=== PATIENT | female | born 1995 | race African-American/Black ===

== ENCOUNTER 2016-08-06 20:57 | Emergency (ER) | payer SELFPAY ==
--- NOTE | 2016-08-06 21:07 | ER Document Report ---
ED Medical Screen (RME) - General Stated Complaint: PELVIC PAIN Mode of Arrival: Ambulatory Information source: Patient Notes: Patient presents with complaints of lower abdominal pain some vaginal discharge denies pain with void. Denies fever vomiting diarrhea reports some nausea I have greeted and performed a rapid initial assessment of this patient. A comprehensive ED assessment and evaluation of the patient, analysis of test results and completion of the medical decision making process will be conducted by additional ED providers. TRAVEL OUTSIDE OF THE [place] IN LAST 30 DAYS: No - Related Data Allergies/Adverse Reactions: No Known Allergies Allergy (Unverified 05/11/15 11:35) Past Medical History Psychiatric Medical History: Reports: Hx Attention Deficit Hyperactivity Disorder, Hx Bipolar Disorder - Immunizations Hx Diphtheria, Pertussis, Tetanus Vaccination: No Physical Exam - Vital signs Vitals: Temp Pulse Resp BP Pulse Ox 97.9 F 74 20 116/73 99 08/06/16 21:03 08/06/16 21:03 08/06/16 21:03 08/06/16 21:03 08/06/16 21:03 Course - Vital Signs Vital signs: Temp Pulse Resp BP Pulse Ox 97.9 F 74 20 116/73 99 08/06/16 21:03 08/06/16 21:03 08/06/16 21:04 08/06/16 21:03 08/06/16 21:03
[2016-08-06 21:38] LABS: ABSOLUTE LYMPHOCYTES (AUTO) 2.9 10^3/uL (0.5-4.7); ABSOLUTE MONOCYTES (AUTO) 0.7 10^3/uL (0.1-1.4); ABSOLUTE NEUT (AUTO) 2.5 10^3/uL (1.7-8.2); BASOPHILS % (AUTO) 0.3 % (0-2); EOSINOPHILS % (AUTO) 0.7 % (0-6); HEMATOCRIT 39.1 % (36.0-47.0); HEMOGLOBIN 13.1 g/dL (12.0-15.5); HGB HCT DIFFERENCE 0.2; LYMPHOCYTES % (AUTO) 47.1 % (13-45); MEAN CORPUSCULAR HEMOGLOBIN 28.4 pg (27.0-33.4); MEAN CORPUSCULAR HGB CONC 33.5 g/dL (32.0-36.0); MEAN CORPUSCULAR VOLUME 85 fl (80-97); MONOCYTES % (AUTO) 10.8 % (3-13); RED CELL DISTRIBUTION WIDTH 13.6 % (11.5-14.0); SEGMENTED NEUTROPHILS % (AUTO) 41.1 % (42-78); WHITE BLOOD COUNT 6.1 10^3/uL (4.0-10.5)
[2016-08-06 21:47] LABS: ALANINE AMINOTRANSFERASE 29 U/L (9-52); ALBUMIN 4.7 g/dL (3.5-5.0); ALKALINE PHOSPHATASE 99 U/L (38-126); ANION GAP 16 (5-19); ASPARTATE AMINO TRANSFERASE 21 U/L (14-36); BILIRUBIN,TOTAL 0.4 mg/dL (0.2-1.3); BLOOD UREA NITROGEN 12 mg/dL (7-20); CALCIUM 10.4 mg/dL (8.4-10.2); CARBON DIOXIDE 21 mmol/L (22-30); CHLORIDE 106 mmol/L (98-107); CREATININE RESULT 0.76 mg/dL (0.52-1.25); GLUCOSE 83 mg/dL (75-110); POTASSIUM 4.3 mmol/L (3.6-5.0); SODIUM 142.6 mmol/L (137-145); TOTAL PROTEIN 7.9 g/dL (6.3-8.2)
[2016-08-06 22:14] LABS: APPEARANCE,URINE CLEAR; BILIRUBIN,URINE NEGATIVE (NEGATIVE); GLUCOSE, URINE NEGATIVE (NEGATIVE); KETONES,URINE NEGATIVE (NEGATIVE); LEUKOCYTE ESTERASE,URINE NEGATIVE (NEGATIVE); NITRITE,URINE NEGATIVE (NEGATIVE); PROTEIN,URINE NEGATIVE (NEGATIVE); URINE SPECIFIC GRAVITY 1.024; UROBILINOGEN,URINE NEGATIVE mg/dL (<2.0)
--- NOTE | 2016-08-06 23:51 | ER Document Report ---
ED GI/ - General Chief Complaint: Pelvic Pain Stated Complaint: PELVIC PAIN Time seen by provider: 23:49 Mode of Arrival: Ambulatory Information source: Patient TRAVEL OUTSIDE OF THE [place] IN LAST 30 DAYS: No - HPI Patient complains to provider of: Pelvic pain, Vaginal discharge Onset: This afternoon Timing/Duration: Sudden Quality of pain: Achy Severity at maximum: Moderate Severity in ED: Moderate Pain Level: 3 Location: Pelvis Vaginal bleeding (Compared to normal period): None Associated symptoms: Vaginal discharge Exacerbated by: Denies Relieved by: Denies Similar symptoms previously: Yes Recently seen / treated by doctor: No Notes: 08/06/16 23:49 Patient is a 21-year-old female who recently came to the area from [place] after a "bad breakup" with her boyfriend, states she is having pelvic pain with white vaginal discharge and is concerned about a sexually transmitted disease, she denies any nausea vomiting or diarrhea, no fever or chills, no dysuria or hematuria, her last intercourse was approximately one week ago, she reports a history of gonorrhea and Chlamydia in the past for which she has been treated - Related Data Allergies/Adverse Reactions: No Known Allergies Allergy (Verified 08/06/16 21:09) Past Medical History - General Information source: Patient - Social History Smoking Status: Never Smoker Chew tobacco use (# tins/day): No Frequency of alcohol use: None Drug Abuse: None Family History: Reviewed & Not Pertinent Patient has suicidal ideation: No Patient has homicidal ideation: No Renal/ Medical History: Denies: Hx Peritoneal Dialysis Psychiatric Medical History: Reports: Hx Attention Deficit Hyperactivity Disorder, Hx Bipolar Disorder - Immunizations Hx Diphtheria, Pertussis, Tetanus Vaccination: No Review of Systems - Review of Systems Constitutional: No symptoms reported EENT: No symptoms reported Cardiovascular: No symptoms reported Respiratory: No symptoms reported Gastrointestinal: No symptoms reported Genitourinary: No symptoms reported Female Genitourinary: See HPI Musculoskeletal: No symptoms reported Skin: No symptoms reported Hematologic/Lymphatic: No symptoms reported Neurological/Psychological: No symptoms reported -: Yes All other systems reviewed and negative Physical Exam - Vital signs Vitals: Temp Pulse Resp BP Pulse Ox 97.9 F 74 20 116/73 99 08/06/16 21:03 08/06/16 21:03 08/06/16 21:03 08/06/16 21:03 08/06/16 21:03 Interpretation: Normal - General General appearance: Appears well, Alert - HEENT Head: Normocephalic, Atraumatic Eyes: Normal Pupils: PERRL - Respiratory Respiratory status: No respiratory distress Chest status: Nontender Breath sounds: Normal Chest palpation: Normal - Cardiovascular Rhythm: Regular Heart sounds: Normal auscultation Murmur: No - Abdominal Inspection: Normal Distension: No distension Bowel sounds: Normal Tenderness: Tender - Suprapubic Organomegaly: No organomegaly - Genitourinary External exam: Normal Speculum exam: Cervix closed, Vaginal discharge Vaginal bleeding: None Bimanuel exam: Cervical motion tender. No: Adnexal tenderness - Back Back: Normal, Nontender - Extremities General upper extremity: Normal inspection, Nontender, Normal color, Normal ROM , Normal temperature General lower extremity: Normal inspection, Nontender, Normal color, Normal ROM , Normal temperature, Normal weight bearing. No: Humaira's sign - Neurological Neuro grossly intact: Yes Cognition: Normal Orientation: AAOx4 Dale Coma Scale Eye Opening: Spontaneous [place] Coma Scale Verbal: Oriented Dale Coma Scale Motor: Obeys Commands [place] Coma Scale Total: 15 Speech: Normal Motor strength normal: LUE, RUE, LLE, RLE Sensory: Normal - Psychological Associated symptoms: Normal affect, Normal mood - Skin Skin Temperature: Warm Skin Moisture: Dry Skin Color: Normal Course - Re-evaluation Re-evalutation: 08/07/16 04:47 Laboratory findings discussed with patient at bedside, physical exam findings are consistent with bacterial vaginosis, patient was started on Flagyl and provided with information for follow-up, advised to return if symptoms worsen, patient acknowledges understanding and agreement with this plan - Vital Signs Vital signs: Temp Pulse Resp BP Pulse Ox 98.5 F 107 H 20 119/68 98 08/07/16 02:04 08/07/16 02:04 08/07/16 02:04 08/07/16 02:04 08/07/16 02:04 - Laboratory Result Diagrams: 08/06/16 21:20 08/06/16 21:20 Laboratory results interpreted by me: 08/06/16 08/06/16 08/06/16 21:20 21:20 21:20 Seg Neutrophils % 41.1 L Lymphocytes % 47.1 H Carbon Dioxide 21 L Calcium 10.4 H Urine Ascorbic Acid 20 H Discharge - Discharge Clinical Impression: Bacterial vaginosis Condition: Stable Disposition: HOME, SELF-CARE Instructions: Vaginosis, Bacterial ([facility]), [facility] Additional Instructions: Follow up with your primary care provider in one to 2 days. Return to the emergency room immediately if symptoms worsen or any additional concerns. Prescriptions: Metronidazole [Flagyl 500 mg Tablet] 500 mg PO TID #30 tablet
[2016-08-07 01:33] LABS: CHLAM PCR NOT DETECTED (NOT DETECT)
[2016-08-07] MEDS ORDERED: METRONIDAZOLE 500 MG TABLET PO ONE (02:00)
[2016-08-07 02:10] VITALS: BP 119/68
== END 2016-08-07 02:11 | disposition home or self-care (01) ==
LOC: ER 20:57
DX: N76.0 Acute vaginitis (principal); B96.89 Other specified bacterial agents as the cause of diseases classified elsewhere; R10.2 Pelvic and perineal pain
CPT/HCPCS: 36415; 80053; 81001; 84703; 85025; 87210; 87491; 87591; 99284

== ENCOUNTER 2016-08-27 18:40 | Emergency (ER) | payer MEDICAID ==
--- NOTE | 2016-08-27 20:07 | ER Document Report ---
ED Medical Screen (RME) - General Stated Complaint: ABDOMINAL PAIN Notes: lmp: 08/20-08/23 test today abdominal cramping, nausea today, headache h/o endometriosis, ovarian cysts with tuboovarian abscess not on control I have greeted and performed a rapid initial assessment of this patient. A comprehensive ED assessment and evaluation of the patient, analysis of test results and completion of the medical decision making process will be conducted by additional ED providers. TRAVEL OUTSIDE OF THE [place] IN LAST 30 DAYS: No - Related Data Allergies/Adverse Reactions: No Known Allergies Allergy (Verified 08/06/16 21:09) Past Medical History Renal/ Medical History: Denies: Hx Peritoneal Dialysis Psychiatric Medical History: Reports: Hx Attention Deficit Hyperactivity Disorder, Hx Bipolar Disorder - Immunizations Hx Diphtheria, Pertussis, Tetanus Vaccination: No
[2016-08-27 20:09] VITALS: BP 106/64
[2016-08-27 20:36] LABS: APPEARANCE,URINE SLIGHTLY-CLOUDY; BILIRUBIN,URINE NEGATIVE (NEGATIVE); GLUCOSE, URINE NEGATIVE (NEGATIVE); KETONES,URINE 20 mg/dL (NEGATIVE); LEUKOCYTE ESTERASE,URINE NEGATIVE (NEGATIVE); NITRITE,URINE NEGATIVE (NEGATIVE); PROTEIN,URINE NEGATIVE (NEGATIVE); UROBILINOGEN,URINE NEGATIVE mg/dL (<2.0)
== END 2016-08-28 00:03 | disposition left against medical advice (07) ==
LOC: ER 18:40
DX: R10.9 Unspecified abdominal pain (principal); R11.0 Nausea; R51 Headache; Z87.42 Personal history of other diseases of the female genital tract; Z53.20 Procedure and treatment not carried out because of patient's decision for unspecified reasons
CPT/HCPCS: 81001; 87086; 87088; 99281

== ENCOUNTER 2016-08-29 19:43 | Emergency (ER) | payer MEDICAID ==
[2016-08-29] MEDS ORDERED: ACETAMINOPHEN 325 MG TABLET PO ONE (20:14)
--- NOTE | 2016-08-29 20:15 | ER Document Report ---
ED Medical Screen (RME) - General Stated Complaint: ABDOMINAL PAIN Mode of Arrival: Ambulatory Information source: Patient Notes: Patient reports having a positive test at home. Patient reports lower abdominal pain and low back pain. Patient reports nausea. Patient denies any urinary symptoms. Patient does report some light spotting. hx: None I have greeted and performed a rapid initial assessment of this patient. A comprehensive ED assessment and evaluation of the patient, analysis of test results and completion of the medical decision making process will be conducted by additional ED providers. TRAVEL OUTSIDE OF THE [place] IN LAST 30 DAYS: No - Related Data Allergies/Adverse Reactions: No Known Allergies Allergy (Verified 08/29/16 20:12) Past Medical History Renal/ Medical History: Denies: Hx Peritoneal Dialysis Psychiatric Medical History: Reports: Hx Attention Deficit Hyperactivity Disorder, Hx Bipolar Disorder - Immunizations Hx Diphtheria, Pertussis, Tetanus Vaccination: No Physical Exam - Vital signs Vitals: Temp Pulse Resp BP 97.8 F 81 18 113/71 08/29/16 20:11 08/29/16 20:11 08/29/16 20:11 08/29/16 20:11 - Abdominal Tenderness: Tender - Lower pelvic Course - Vital Signs Vital signs: Temp Pulse Resp BP Pulse Ox 97.8 F 81 18 113/71 08/29/16 20:11 08/29/16 20:11 08/29/16 20:11 08/29/16 20:11
[2016-08-29 21:03] LABS: APPEARANCE,URINE SLIGHTLY-CLOUDY; BILIRUBIN,URINE NEGATIVE (NEGATIVE); GLUCOSE, URINE NEGATIVE (NEGATIVE); KETONES,URINE NEGATIVE (NEGATIVE); LEUKOCYTE ESTERASE,URINE NEGATIVE (NEGATIVE); NITRITE,URINE NEGATIVE (NEGATIVE); PROTEIN,URINE NEGATIVE (NEGATIVE); URINE SPECIFIC GRAVITY 1.029
[2016-08-29 21:35] LABS: ABSOLUTE EOSINOPHILS # (AUTO) 0.1 10^3/uL (0.0-0.6); ABSOLUTE LYMPHOCYTES (AUTO) 3.2 10^3/uL (0.5-4.7); ABSOLUTE MONOCYTES (AUTO) 0.6 10^3/uL (0.1-1.4); BASOPHILS % (AUTO) 0.8 % (0-2); EOSINOPHILS % (AUTO) 1.2 % (0-6); HEMATOCRIT 40.6 % (36.0-47.0); HEMOGLOBIN 13.7 g/dL (12.0-15.5); HGB HCT DIFFERENCE 0.5; LYMPHOCYTES % (AUTO) 54.1 % (13-45); MEAN CORPUSCULAR HEMOGLOBIN 28.4 pg (27.0-33.4); MEAN CORPUSCULAR HGB CONC 33.7 g/dL (32.0-36.0); MEAN CORPUSCULAR VOLUME 85 fl (80-97); MONOCYTES % (AUTO) 10.5 % (3-13); RED BLOOD COUNT 4.81 10^6/uL (3.72-5.28); RED CELL DISTRIBUTION WIDTH 13.4 % (11.5-14.0); SEGMENTED NEUTROPHILS % (AUTO) 33.4 % (42-78)
[2016-08-29 21:48] LABS: ALANINE AMINOTRANSFERASE 24 U/L (9-52); ALBUMIN 5.1 g/dL (3.5-5.0); ALKALINE PHOSPHATASE 93 U/L (38-126); ANION GAP 16 (5-19); ASPARTATE AMINO TRANSFERASE 18 U/L (14-36); BILIRUBIN,TOTAL 0.6 mg/dL (0.2-1.3); BLOOD UREA NITROGEN 13 mg/dL (7-20); CALCIUM 10.4 mg/dL (8.4-10.2); CARBON DIOXIDE 18 mmol/L (22-30); CHLORIDE 106 mmol/L (98-107); GLUCOSE 98 mg/dL (75-110); POTASSIUM 4.3 mmol/L (3.6-5.0); SODIUM 139.8 mmol/L (137-145); TOTAL PROTEIN 8.3 g/dL (6.3-8.2)
--- NOTE | 2016-08-29 23:09 | ER Document Report ---
ED GI/ - General Chief Complaint: Abdominal Pain Stated Complaint: ABDOMINAL PAIN Time seen by provider: 23:02 Mode of Arrival: Ambulatory Information source: Patient Notes: 21-year-old female presents to ED for lower abdominal pain spotting and positive test at home. She denies any pain at this time, denies any urinary symptoms, states she has a history of PID and endometriosis GC and chlamydia as well as genital herpes, which are not broken out right now. She states her pelvic pain does not feel like her previous PID's. TRAVEL OUTSIDE OF THE [place] IN LAST 30 DAYS: No - HPI Patient complains to provider of: Pelvic pain, , Vaginal bleeding Onset: Other - Couple days Timing/Duration: Intermittent Quality of pain: Achy Severity in ED: None Pain Level: Denies Location: Pelvis Vaginal bleeding (Compared to normal period): Spotting LMP: August 20 2016 : 1 Para: 0 ABO type: a Rh factor: positive OB ultrasound done: No vitamins taken: No Sexual history: Multiple partners Associated symptoms: denies: Nausea, Vomiting Exacerbated by: Denies Relieved by: Denies Similar symptoms previously: Yes Recently seen / treated by doctor: No - Related Data Allergies/Adverse Reactions: No Known Allergies Allergy (Verified 08/29/16 20:12) Past Medical History - General Information source: Patient - Social History Smoking Status: Never Smoker Cigarette use (# per day): No Chew tobacco use (# tins/day): No Smoking Education Provided: No Frequency of alcohol use: None Drug Abuse: None Occupation: none Lives with: Grandparent(s) Family History: Reviewed & Not Pertinent Patient has suicidal ideation: No Patient has homicidal ideation: No - Past Medical History Cardiac Medical History: Reports: None Pulmonary Medical History: Reports: None EENT Medical History: Reports: None Neurological Medical History: Reports: None Endocrine Medical History: Reports: None Renal/ Medical History: Reports: Hx Ovarian Cysts, Hx Pelvic Inflammatory Disease - States she's had GC chlamydia and genital herpes, Other - Endometriosis Malignancy Medical History: Reports: None GI Medical History: Reports: None Musculoskeltal Medical History: Reports None Skin Medical History: Reports None Psychiatric Medical History: Reports: Hx Attention Deficit Hyperactivity Disorder, Hx Bipolar Disorder Traumatic Medical History: Reports: None Infectious Medical History: Reports: None Surgical Hx: Negative Past Surgical History: Reports: None - Immunizations Hx Diphtheria, Pertussis, Tetanus Vaccination: No Review of Systems - Review of Systems Constitutional: No symptoms reported EENT: No symptoms reported Cardiovascular: No symptoms reported Respiratory: No symptoms reported Gastrointestinal: No symptoms reported Genitourinary: No symptoms reported Female Genitourinary: , Vaginal bleeding Musculoskeletal: No symptoms reported Skin: No symptoms reported Hematologic/Lymphatic: No symptoms reported Neurological/Psychological: No symptoms reported Physical Exam - Vital signs Vitals: Temp Pulse Resp BP Pulse Ox 97.8 F 88 18 113/71 100 08/29/16 20:10 08/29/16 20:10 08/29/16 20:10 08/29/16 20:10 08/29/16 20:10 Interpretation: Normal - General General appearance: Appears well, Alert - HEENT Head: Normocephalic, Atraumatic Eyes: Normal Pupils: PERRL - Respiratory Respiratory status: No respiratory distress Chest status: Nontender Breath sounds: Normal Chest palpation: Normal - Cardiovascular Rhythm: Regular Heart sounds: Normal auscultation Murmur: No - Abdominal Inspection: Normal Distension: No distension Bowel sounds: Normal Tenderness: Nontender. No: Tender Organomegaly: No organomegaly - Genitourinary Notes: Patient refused a pelvic exam at this time she also refused coverage for possible GC and chlamydia at this time. She states she just wanted to know whether she was and what to do if she is and what foods to eat and what medicines she can and cannot take. She agreed E's give a urine specimen to send for GC and Chlamydia and to give a phone number to the nurse to call her back if either are positive so she can come back to the emergency room and get treated. - Back Back: Normal, Nontender - Extremities General upper extremity: Normal inspection, Nontender, Normal color, Normal ROM , Normal temperature General lower extremity: Normal inspection, Nontender, Normal color, Normal ROM , Normal temperature, Normal weight bearing. No: Humaira's sign - Neurological Neuro grossly intact: Yes Cognition: Normal Orientation: AAOx4 [place] Coma Scale Eye Opening: Spontaneous [place] Coma Scale Verbal: Oriented [place] Coma Scale Motor: Obeys Commands [place] Coma Scale Total: 15 Speech: Normal Motor strength normal: LUE, RUE, LLE, RLE Sensory: Normal - Psychological Associated symptoms: Normal affect, Normal mood - Skin Skin Temperature: Warm Skin Moisture: Dry Skin Color: Normal Course - Re-evaluation Re-evalutation: 08/29/16 23:27 Patient lady refused to have a pelvic exam done while she is here. She states she knows she does not have any kind STD at this time. She did agree to give a urine to send for GC and chlamydia as she has had both in the past. She refused to have Rocephin and azithromycin while she is here today states if either one of them comes back positive if the nurse will call her she will come back and get her medications. States she mainly wanted to know for sure if she was and what to do if she is concerning food and medicines. She states she's also needed to prove for . - Vital Signs Vital signs: Temp Pulse Resp BP Pulse Ox 97.8 F 81 18 113/71 100 08/29/16 20:11 08/29/16 20:11 08/29/16 20:11 08/29/16 20:11 08/29/16 20:10 - Laboratory Result Diagrams: 08/29/16 21:15 08/29/16 21:15 Laboratory results interpreted by me: 08/29/16 08/29/16 08/29/16 20:45 21:15 21:15 Seg Neutrophils % 33.4 L Lymphocytes % 54.1 H Carbon Dioxide 18 L Calcium 10.4 H Total Protein 8.3 H Albumin 5.1 H Beta HCG, Quant 65.54 H Urine Blood MODERATE H Urine Urobilinogen 2.0 H Discharge - Discharge Clinical Impression: Pelvic pain affecting in first trimester, antepartum Condition: Stable Disposition: HOME, SELF-CARE Instructions: Pelvic Pain ([facility]) Additional Instructions: : You are . care is best started as early in as possible. If you're unsure about continuing this , you should discuss this with your physician or with brand executive at [facility]. You should take only medications approved by your physician. Acetaminophen can safely be taken for minor pains. As a rule, medication for chronic conditions such as asthma or seizures can safely be continued. You should discuss with the physician every medicine you take. Any regular exercise program can be continued. Talk to your physician, however, before engaging in competitive or demanding sports. Alcohol, smoking, and "street drugs" are dangerous to your baby. Cocaine is especially dangerous. Don't use any illicit drugs! BLEEDING DURING EARLY : You have been evaluated for passing blood while . While we take this symptom very seriously, most women with your degree of bleeding will go on to have a perfectly normal baby. At this time, there is no indication that a miscarriage will occur. (A miscarriage occurs when the fetus is abnormal. There is no medicine or treatment to prevent it.) A more serious cause of bleeding is tubal (or ectopic) . An ultrasound usually can show whether the is in the uterus or in the tube. Sometimes in early , no fetus is seen. In this case, careful follow-up, including repeat blood tests and repeat ultrasound, is necessary. Do not douche or have sex for at least a week, or until OK'd by the doctor. Don't use tampons. Call the doctor or return for re-examination if there is an increase in bleeding or cramping, extreme weakness, fainting, new abdominal pain, fever, or passage of tissue. RHOGAM: Rhogam is given to a woman who has Rh negative blood type when she has vaginal bleeding during her or at the time of the delivery of her baby. If a woman is Rh negative, her body will form antibodies against red blood cells from an Rh positive fetus or baby that mix with her blood during a threatened or actual miscarraige or delivery. These antibodies will remain in the woman's body forever and will attack any future Rh positive fetus preventing it from developing into a normal baby. Rhogam is given to prevent the mother's body from forming these antibodies. REPEAT BLOOD TEST: At this time, it is uncertain if you have a viable . During the first three months of , the hormone produced from the placenta will steadily rise, usually doubling in value every 2 - 3 days. In order to determine if your is viable and likely be succesful, a repeat of this blood test for the hormone is recommended in 2 - 3 days. An order for this test to be done as an outpatient is being provided. After you have this repeat test done, call your doctor or call us for the results. If the value of the test is increasing as would be expected in a normal , then your is likely to be ok. However, if the value of the test is declining, it will suggest something has happened with your and it will not likely be a successful . FOLLOW-UP CARE: If you have been referred to a physician for follow-up care, call the physician s office for an appointment as you were instructed or within the next two days. If you experience worsening or a significant change in your symptoms (very heavy bleeding with large clots of blood, passage of tissue, more severe abdominal / pelvic pain or cramping, feeling faint or severe weakness, fever, etc.), notify the physician immediately or return to the Emergency Department at any time for re-evaluation. OBSTETRIC-GYNECOLOGIC (OB-THUMB SEWER) PHYSICIANS IN [place]: [facility] [address] [place] [address] [phone] For active duty and dependents diagnosed with a threatened or miscarriage, you should follow up in the following manner: Standard patients who have a local civilian provider should follow up with that provider. Patients of the Family Practice Clinic should call your Team Nurse at 8: 00 am the following morning for further instructions. If you are neither a Standard patient nor a patient of the Family Practice Clinic, you should follow up at the [facility] ([facility]) . Patients already enrolled in the [facility] OB Clinic, Prime patients not assigned to the Family Practice Clinic, and Active Duty patients not assigned to Family Practice Clinic should report to the [facility] Lab at 8:00 am the next morning that the [facility] OB Clinic is open and then you will be seen in the OB Clinic at 11:00 am. Forms: Follow-Up Laboratory Testing Referrals: [facility] [Provider Group] - Follow up as needed
[2016-08-29 23:28] VITALS: BP 121/74
[2016-08-30 00:43] LABS: CHLAM PCR NOT DETECTED (NOT DETECT)
== END 2016-08-29 23:31 | disposition home or self-care (01) ==
LOC: ER 19:43
DX: O26.91 Pregnancy related conditions, unspecified, first trimester (principal); R10.2 Pelvic and perineal pain; R10.30 Lower abdominal pain, unspecified
CPT/HCPCS: 99284; 86900; 86901; 36415; 84702; 85025; 80053; 81001; 87491; 87591; J3490

== ENCOUNTER 2016-08-31 13:39 | Emergency (ER) | payer MEDICAID ==
--- NOTE | 2016-08-31 14:02 | ER Document Report ---
ED Medical Screen (RME) - General Chief Complaint: Vaginal Bleeding Stated Complaint: VAGINAL BLEEDING Mode of Arrival: Ambulatory Information source: Patient Notes: 21-year-old female presents to the emergency department via EMS for mild pelvic cramping and vaginal bleeding since this morning. Reports is approximately 3 weeks , G1. Denies fever or any other systemic symptoms. I have greeted and performed a rapid initial assessment of this patient. A comprehensive ED assessment and evaluation of the patient, analysis of test results and completion of the medical decision making process will be conducted by additional ED providers. TRAVEL OUTSIDE OF THE [place] IN LAST 30 DAYS: No - Related Data Allergies/Adverse Reactions: No Known Allergies Allergy (Verified 08/31/16 13:56) Past Medical History Renal/ Medical History: Reports: Hx Ovarian Cysts, Hx Pelvic Inflammatory Disease - States she's had GC chlamydia and genital herpes. Denies: Hx Peritoneal Dialysis Psychiatric Medical History: Reports: Hx Attention Deficit Hyperactivity Disorder, Hx Bipolar Disorder - Immunizations Hx Diphtheria, Pertussis, Tetanus Vaccination: No Physical Exam - Vital signs Vitals: Temp Pulse Resp BP Pulse Ox 98.3 F 80 18 107/91 H 100 08/31/16 13:59 08/31/16 13:59 08/31/16 13:59 08/31/16 13:59 08/31/16 13:59 - General General appearance: Appears well, Alert In distress: None - Respiratory Respiratory status: No respiratory distress Course - Vital Signs Vital signs: Temp Pulse Resp BP Pulse Ox 98.3 F 80 18 107/91 H 100 08/31/16 13:59 08/31/16 13:59 08/31/16 13:59 08/31/16 13:59 08/31/16 13:59
[2016-08-31 15:05] LABS: ABSOLUTE EOSINOPHILS # (AUTO) 0.1 10^3/uL (0.0-0.6); ABSOLUTE LYMPHOCYTES (AUTO) 2.6 10^3/uL (0.5-4.7); ABSOLUTE MONOCYTES (AUTO) 0.4 10^3/uL (0.1-1.4); ABSOLUTE NEUT (AUTO) 1.6 10^3/uL (1.7-8.2); BASOPHILS % (AUTO) 0.5 % (0-2); EOSINOPHILS % (AUTO) 1.2 % (0-6); HEMATOCRIT 39.4 % (36.0-47.0); HEMOGLOBIN 13.2 g/dL (12.0-15.5); HGB HCT DIFFERENCE 0.2; LYMPHOCYTES % (AUTO) 56.1 % (13-45); MEAN CORPUSCULAR HEMOGLOBIN 28.7 pg (27.0-33.4); MEAN CORPUSCULAR HGB CONC 33.6 g/dL (32.0-36.0); MEAN CORPUSCULAR VOLUME 85 fl (80-97); MONOCYTES % (AUTO) 8.2 % (3-13); RED BLOOD COUNT 4.62 10^6/uL (3.72-5.28); RED CELL DISTRIBUTION WIDTH 13.4 % (11.5-14.0); WHITE BLOOD COUNT 4.6 10^3/uL (4.0-10.5)
[2016-08-31 15:06] LABS: APPEARANCE,URINE SLIGHTLY-CLOUDY; BILIRUBIN,URINE NEGATIVE (NEGATIVE); GLUCOSE, URINE NEGATIVE (NEGATIVE); KETONES,URINE NEGATIVE (NEGATIVE); LEUKOCYTE ESTERASE,URINE TRACE (NEGATIVE); NITRITE,URINE NEGATIVE (NEGATIVE); PROTEIN,URINE NEGATIVE (NEGATIVE); URINE SPECIFIC GRAVITY 1.017; UROBILINOGEN,URINE NEGATIVE mg/dL (<2.0)
[2016-08-31 15:22] LABS: ALANINE AMINOTRANSFERASE 25 U/L (9-52); ALBUMIN 4.8 g/dL (3.5-5.0); ALKALINE PHOSPHATASE 97 U/L (38-126); ANION GAP 10 (5-19); ASPARTATE AMINO TRANSFERASE 18 U/L (14-36); BILIRUBIN,TOTAL 0.6 mg/dL (0.2-1.3); BLOOD UREA NITROGEN 9 mg/dL (7-20); CALCIUM 11.2 mg/dL (8.4-10.2); CARBON DIOXIDE 23 mmol/L (22-30); CHLORIDE 109 mmol/L (98-107); CREATININE RESULT 0.83 mg/dL (0.52-1.25); GLUCOSE 88 mg/dL (75-110); POTASSIUM 4.9 mmol/L (3.6-5.0); SODIUM 142.4 mmol/L (137-145); TOTAL PROTEIN 8.2 g/dL (6.3-8.2)
--- NOTE | 2016-08-31 23:31 | ER Document Report ---
ED GI/ - General Mode of Arrival: Ambulatory Information source: Patient TRAVEL OUTSIDE OF THE [place] 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 Patient states that her symptoms feel like a menstrual period and states that her symptoms are not any worse today than they were 2 days ago. Patient's last menstrual period was on 08/23/2016. (AISSATOU TUCKER) - Related Data Allergies/Adverse Reactions: No Known Allergies Allergy (Verified 08/31/16 13:56) Past Medical History - General Information source: Patient - Social History Smoking Status: Unknown if Ever Smoked Family History: Reviewed & Not Pertinent Patient has suicidal ideation: No Patient has homicidal ideation: No Renal/ Medical History: Reports: Hx Ovarian Cysts, Hx Pelvic Inflammatory Disease. Denies: Hx Peritoneal Dialysis Psychiatric Medical History: Reports: Hx Attention Deficit Hyperactivity Disorder, Hx Bipolar Disorder - Immunizations Hx Diphtheria, Pertussis, Tetanus Vaccination: No <AISSATOU TUCKER - Last Filed: 09/01/16 02:08> - General Information source: Patient Last Menstrual Period: 08/23/16 - Social History Smoking Status: Unknown if Ever Smoked Family History: Reviewed & Not Pertinent Patient has suicidal ideation: No Patient has homicidal ideation: No Renal/ Medical History: Reports: Hx Ovarian Cysts, Hx Pelvic Inflammatory Disease - States she's had GC chlamydia and genital herpes. Denies: Hx Peritoneal Dialysis Psychiatric Medical History: Reports: Hx Attention Deficit Hyperactivity Disorder, Hx Bipolar Disorder - Immunizations Hx Diphtheria, Pertussis, Tetanus Vaccination: No <MITCHEL BARGER - Last Filed: 09/01/16 03:53> Review of Systems - Review of Systems Constitutional: No symptoms reported EENT: No symptoms reported Cardiovascular: No symptoms reported Respiratory: No symptoms reported Gastrointestinal: No symptoms reported Genitourinary: No symptoms reported Female Genitourinary: See HPI, Last menstrual period - 08/23/2016, , Vaginal bleeding, Other - Vaginal cramping Musculoskeletal: No symptoms reported Skin: No symptoms reported Hematologic/Lymphatic: No symptoms reported Neurological/Psychological: No symptoms reported -: Yes All other systems reviewed and negative <AISSATOU TUCKER - Last Filed: 09/01/16 02:08> Physical Exam - Vital signs Interpretation: Normal - General General appearance: Appears well, Alert - HEENT Head: Normocephalic, Atraumatic Eyes: Normal Pupils: PERRL - Respiratory Respiratory status: No respiratory distress Chest status: Nontender Breath sounds: Normal Chest palpation: Normal - Cardiovascular Rhythm: Regular Heart sounds: Normal auscultation Murmur: No - Abdominal Inspection: Normal Distension: No distension Bowel sounds: Normal Tenderness: Nontender Organomegaly: No organomegaly - Back Back: Normal, Nontender - Extremities General upper extremity: Normal inspection, Nontender, Normal color, Normal ROM , Normal temperature General lower extremity: Normal inspection, Nontender, Normal color, Normal ROM , Normal temperature, Normal weight bearing. No: Humaira's sign - Neurological Neuro grossly intact: Yes Cognition: Normal Orientation: AAOx4 [place] Coma Scale Eye Opening: Spontaneous [place] Coma Scale Verbal: Oriented [place] Coma Scale Motor: Obeys Commands [place] Coma Scale Total: 15 Speech: Normal Motor strength normal: LUE, RUE, LLE, RLE Sensory: Normal - Psychological Associated symptoms: Normal affect, Normal mood - Skin Skin Temperature: Warm Skin Moisture: Dry Skin Color: Normal <MITCHEL BARGER - Last Filed: 09/01/16 03:53> - Vital signs Vitals: Temp Pulse Resp BP Pulse Ox 98.3 F 80 18 107/91 H 100 08/31/16 13:59 08/31/16 13:59 08/31/16 13:59 08/31/16 13:59 08/31/16 13:59 (AISSATOU TUCKER) (MITCHEL BARGER) Course - Laboratory Result Diagrams: 08/31/16 14:20 08/31/16 14:20 <AISSATOU TUCKER - Last Filed: 09/01/16 02:08> - Laboratory Result Diagrams: 08/31/16 14:20 08/31/16 14:20 <MITCHEL BARGER - Last Filed: 09/01/16 03:53> - Re-evaluation Re-evalutation: 09/01/16 Patient is a 21-year-old female who comes in for some mild vaginal bleeding and cramping. Patient was seen Wednesday and told to return for repeat hCG. HCG is 26 and is down trending. Offered to do a pelvic exam and patient initially wanted that and then did not want it. We have had a very long discussion regarding the patient's for early and miscarriage. Patient is instructed to follow-up with [facility]. Patient has had a lot of questions regarding hCG, bleeding. She otherwise appears well. In the end, patient did not want to do pelvic exam the emergency department as it was taking too long and she felt well otherwise. Stable for discharge home. (MITCHEL BARGER) - Vital Signs Vital signs: Temp Pulse Resp BP Pulse Ox 98.1 F 98 18 110/78 98 09/01/16 03:17 09/01/16 03:17 09/01/16 03:17 09/01/16 03:17 09/01/16 03:17 (AISSATOU TUCKER) (MITCHEL BARGER) - Laboratory Laboratory results interpreted by me: 08/31/16 08/31/16 08/31/16 14:20 14:20 14:20 Seg Neutrophils % 34.0 L Lymphocytes % 56.1 H Absolute Neutrophils 1.6 L Chloride 109 H Calcium 11.2 H Beta HCG, Quant 26.72 H Urine Blood LARGE H Ur Leukocyte Esterase TRACE H Urine Ascorbic Acid 40 H (AISSATOU TUCKER) (MITCHEL BARGER) Discharge <AISSATOU TUCKER - Last Filed: 09/01/16 02:08> <MITCHEL BARGER - Last Filed: 09/01/16 03:53> - Discharge Clinical Impression: Miscarriage Condition: Stable Disposition: HOME, SELF-CARE Instructions: Miscarriage ([facility]) Additional Instructions: 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 Forms: Return to Work Scribe Attestation: 09/01/16 03:53 I personally performed the services described in the documentation, reviewed and edited the documentation which was dictated to the scribe in my presence, and it accurately records my words and actions. (MITCHEL BARGER) Scribe Documentation - Scribe Written by Andrews:: Andrews Ledesma, 09/01/2016 0213 acting as scribe for :: Hugh <AISSATOU TUCKER - Last Filed: 09/01/16 02:08>
[2016-09-01 03:18] VITALS: BP 110/78
== END 2016-09-01 02:55 | disposition home or self-care (01) ==
LOC: ER 13:39
DX: O03.9 Complete or unspecified spontaneous abortion without complication (principal); N93.9 Abnormal uterine and vaginal bleeding, unspecified; R10.9 Unspecified abdominal pain
CPT/HCPCS: 36415; 80053; 81001; 84702; 85025; 87086; 99284

== ENCOUNTER 2016-09-01 08:10 | Emergency (ER) | payer MEDICAID ==
[2016-09-01 08:27] VITALS: BP 102/59
[2016-09-01 09:08] LABS: ABSOLUTE EOSINOPHILS # (AUTO) 0.1 10^3/uL (0.0-0.6); ABSOLUTE LYMPHOCYTES (AUTO) 2.6 10^3/uL (0.5-4.7); ABSOLUTE MONOCYTES (AUTO) 0.6 10^3/uL (0.1-1.4); ABSOLUTE NEUT (AUTO) 1.8 10^3/uL (1.7-8.2); BASOPHILS % (AUTO) 0.4 % (0-2); EOSINOPHILS % (AUTO) 1.6 % (0-6); HEMATOCRIT 37.1 % (36.0-47.0); HEMOGLOBIN 12.4 g/dL (12.0-15.5); HGB HCT DIFFERENCE 0.1; LYMPHOCYTES % (AUTO) 51.5 % (13-45); MEAN CORPUSCULAR HEMOGLOBIN 28.6 pg (27.0-33.4); MEAN CORPUSCULAR HGB CONC 33.3 g/dL (32.0-36.0); MEAN CORPUSCULAR VOLUME 86 fl (80-97); RED BLOOD COUNT 4.32 10^6/uL (3.72-5.28); RED CELL DISTRIBUTION WIDTH 13.7 % (11.5-14.0); SEGMENTED NEUTROPHILS % (AUTO) 35.5 % (42-78); WHITE BLOOD COUNT 5.1 10^3/uL (4.0-10.5)
[2016-09-01 09:25] LABS: APPEARANCE,URINE CLOUDY; BILIRUBIN,URINE NEGATIVE (NEGATIVE); GLUCOSE, URINE 50 mg/dL (NEGATIVE); KETONES,URINE NEGATIVE (NEGATIVE); LEUKOCYTE ESTERASE,URINE NEGATIVE (NEGATIVE); NITRITE,URINE NEGATIVE (NEGATIVE); PROTEIN,URINE 100 mg/dL (NEGATIVE); URIC ACID CRYSTALS,URINE TOO NUMEROUS TO CNT /HPF; URINE SPECIFIC GRAVITY 1.029; UROBILINOGEN,URINE NEGATIVE mg/dL (<2.0)
--- NOTE | 2016-09-01 09:58 | ER Document Report ---
ED GI/ <KAITLYN SANTORO - Last Filed: 09/01/16 10:19> - General Time seen by provider: 09:50 Mode of Arrival: Medic Information source: Patient TRAVEL OUTSIDE OF THE [place] IN LAST 30 DAYS: No - HPI Patient complains to provider of: Abdominal pain, Vaginal bleeding Onset: Other - see hpi note Quality of pain: Cramping Menstrual period history: Abnormal <RADHA REYNOLDS - Last Filed: 09/01/16 10:51> - General Chief Complaint: Vag Bleeding, +preg <12wks Stated Complaint: CRAMPING Notes: Patient is a 21-year-old female presenting to emergency department via EMS for abdominal cramping and vaginal bleeding. Patient's last menstrual period was . Patient was seen in the emergency department for similar symptoms on 08/29/16 and had a hormone level of 65. On 08/31/2016 patient's normal level was 26. And on 09/01/2016 patient's hormone level was 16. Patient returned to the emergency department because of abdominal cramping and vaginal bleeding became worse since her last visit. Patient has a history of ovarian cysts and exploratory surgery for endometriosis. These results were discussed with patient during the exam. Patient has no other complaints or symptoms. Patient has no known allergies. (RADHA REYNOLDS) - Related Data Allergies/Adverse Reactions: No Known Allergies Allergy (Verified 09/01/16 08:11) Past Medical History - General Information source: Patient - Social History Smoking Status: Never Smoker Cigarette use (# per day): No Chew tobacco use (# tins/day): No Frequency of alcohol use: None Drug Abuse: None Family History: None Renal/ Medical History: Reports: Hx Ovarian Cysts, Hx Pelvic Inflammatory Disease - States she's had GC chlamydia and genital herpes Psychiatric Medical History: Reports: Hx Attention Deficit Hyperactivity Disorder, Hx Bipolar Disorder, Hx Depression Past Surgical History: Reports: Hx Gynecologic Surgery - Exploratory surgery for endometriosis - Immunizations Hx Diphtheria, Pertussis, Tetanus Vaccination: No <RADHA REYNOLDS - Last Filed: 09/01/16 10:51> Review of Systems - Review of Systems Constitutional: No symptoms reported EENT: No symptoms reported Cardiovascular: No symptoms reported Respiratory: No symptoms reported Gastrointestinal: See HPI, Abdominal pain Genitourinary: No symptoms reported Female Genitourinary: See HPI, Vaginal bleeding Musculoskeletal: No symptoms reported Skin: No symptoms reported Hematologic/Lymphatic: No symptoms reported Neurological/Psychological: No symptoms reported -: Yes All other systems reviewed and negative <RADHA REYNOLDS - Last Filed: 09/01/16 10:51> Physical Exam - Vital signs Interpretation: Normal - General General appearance: Appears well, Alert In distress: Mild - HEENT Head: Normocephalic, Atraumatic Eyes: Normal Pupils: PERRL Mucous membranes: Moist - Respiratory Respiratory status: No respiratory distress - Cardiovascular Rhythm: Regular - Abdominal Inspection: Normal Distension: No distension Bowel sounds: Normal Tenderness: Nontender Organomegaly: No organomegaly - Back Back: Normal, Nontender - Extremities General upper extremity: Normal inspection, Normal ROM, Normal strength General lower extremity: Normal inspection, Normal ROM, Normal strength - Neurological Neuro grossly intact: Yes Cognition: Normal Orientation: AAOx4 Dale Coma Scale Eye Opening: Spontaneous [place] Coma Scale Verbal: Oriented [place] Coma Scale Motor: Obeys Commands [place] Coma Scale Total: 15 Speech: Normal - Psychological Associated symptoms: Normal affect, Normal mood - Skin Skin Temperature: Warm Skin Moisture: Dry Skin Color: Normal <RADHA REYNOLDS - Last Filed: 09/01/16 10:51> - Vital signs Vitals: Temp Pulse Resp BP Pulse Ox 97.8 F 70 20 102/59 L 99 09/01/16 08:26 09/01/16 08:26 09/01/16 08:26 09/01/16 08:26 09/01/16 08:26 (KAITLYN SANTORO) (RADHA REYNOLDS) Course - Laboratory Result Diagrams: 09/01/16 08:44 <KAITLYN SANTORO - Last Filed: 09/01/16 10:19> - Laboratory Result Diagrams: 09/01/16 08:44 <RADHA REYNOLDS - Last Filed: 09/01/16 10:51> - Re-evaluation Re-evalutation: 09/01/16 10:19 I explained to the patient that the urine that was collected suggested urinary tract infection, but it was quite contaminated with several epithelial cells and uric acid crystals which were not present on a urine done yesterday but did not look infected. There is also quite a lot of blood in the urine which is due to her vaginal bleeding. I explained in considerable detail why a catheterized urine should be collected and she seemed agreeable to this. When the PCT went to collect the urine, the patient refused to allow to be done and signed an AMA form. I was not willing to take responsibility for this patient's management without appropriate information. Reviewing the chart from yesterday shows that physician had similar difficulty in trying to explain to the patient what exactly was going on. She has been here 3 times in 4 days for the same complaint. She came by ambulance today. Her hormone level started at 65, it was 26 yesterday, it is 16 today. She still does not seem to grasp that this is a but never developed and the presence of hormone in the blood stream does not mean that she is . (KAITLYN SANTORO) - Vital Signs Vital signs: Temp Pulse Resp BP Pulse Ox 97.8 F 70 20 102/59 L 99 09/01/16 08:26 09/01/16 08:26 09/01/16 08:26 09/01/16 08:26 09/01/16 08:26 (KAITLYN SANTORO) (RADHA REYNOLDS) - Laboratory Laboratory results interpreted by me: 09/01/16 09/01/16 09/01/16 08:30 08:44 08:44 Seg Neutrophils % 35.5 L Lymphocytes % 51.5 H Beta HCG, Quant 16.34 H Urine Protein 100 H Urine Glucose (UA) 50 H Urine Blood LARGE H Urine Ascorbic Acid 40 H (KAITLYN SANTORO) (RADHA REYNOLDS) Discharge <KAITLYN SANTORO - Last Filed: 09/01/16 10:19> <RADHA REYNOLDS - Last Filed: 09/01/16 10:51> - Discharge Clinical Impression: Blighted ovum, Miscarriage Condition: Stable Disposition: AGAINST MEDICAL ADVICE Scribe Documentation - Scribe Written by Andrews:: Radha Reynolds 09/01/2016 10:50 acting as scribe for :: Delroy <RADHA REYNOLDS - Last Filed: 09/01/16 10:51>
== END 2016-09-01 10:51 | disposition left against medical advice (07) ==
LOC: ER 08:10
DX: O02.0 Blighted ovum and nonhydatidiform mole (principal); O03.9 Complete or unspecified spontaneous abortion without complication; O26.891 Other specified pregnancy related conditions, first trimester; R10.9 Unspecified abdominal pain; Z3A.01 Less than 8 weeks gestation of pregnancy; Z87.42 Personal history of other diseases of the female genital tract; Z53.20 Procedure and treatment not carried out because of patient's decision for unspecified reasons
CPT/HCPCS: 36415; 81001; 84702; 85025; 99281

== ENCOUNTER 2016-09-03 18:23 | Emergency (ER) | payer MEDICAID ==
[2016-09-03] MEDS ORDERED: HYDROCODONE/ACETAMINOPHEN 5-325 MG TABLET PO ONE (18:54)
[2016-09-03] MEDS ORDERED: ONDANSETRON 4 MG TAB.RAPDIS PO ONE (18:55)
--- NOTE | 2016-09-03 18:57 | ER Document Report ---
ED Medical Screen (RME) - General Chief Complaint: Abdominal Pain Stated Complaint: ABDOMINAL PAIN Mode of Arrival: Ambulatory Information source: Patient Notes: 21 y/o F presents to ED c/o left lower abd/flank pain. Reports has been evaluated in ED several times over the last week for similar symptoms and diagnosed with miscarriage. States pain is persistent. Denies fever. I have greeted and performed a rapid initial assessment of this patient. A comprehensive ED assessment and evaluation of the patient, analysis of test results and completion of the medical decision making process will be conducted by additional ED providers. TRAVEL OUTSIDE OF THE [place] IN LAST 30 DAYS: No - Related Data Allergies/Adverse Reactions: No Known Allergies Allergy (Verified 09/03/16 18:38) Past Medical History - Social History Chew tobacco use (# tins/day): No Frequency of alcohol use: None Drug Abuse: None Renal/ Medical History: Reports: Hx Ovarian Cysts, Hx Pelvic Inflammatory Disease - States she's had GC chlamydia and genital herpes. Denies: Hx Peritoneal Dialysis Psychiatric Medical History: Reports: Hx Attention Deficit Hyperactivity Disorder, Hx Bipolar Disorder, Hx Depression Past Surgical History: Reports: Hx Gynecologic Surgery - Exploratory surgery for endometriosis - Immunizations Hx Diphtheria, Pertussis, Tetanus Vaccination: No Physical Exam - General General appearance: Appears well, Alert In distress: None - Respiratory Respiratory status: No respiratory distress
[2016-09-03 19:30] LABS: APPEARANCE,URINE SLIGHTLY-CLOUDY; BILIRUBIN,URINE NEGATIVE (NEGATIVE); GLUCOSE, URINE NEGATIVE (NEGATIVE); KETONES,URINE NEGATIVE (NEGATIVE); LEUKOCYTE ESTERASE,URINE NEGATIVE (NEGATIVE); NITRITE,URINE NEGATIVE (NEGATIVE); PROTEIN,URINE NEGATIVE (NEGATIVE); URINE SPECIFIC GRAVITY 1.026
[2016-09-03 19:57] LABS: ABSOLUTE EOSINOPHILS # (AUTO) 0.1 10^3/uL (0.0-0.6); ABSOLUTE LYMPHOCYTES (AUTO) 2.1 10^3/uL (0.5-4.7); ABSOLUTE MONOCYTES (AUTO) 0.9 10^3/uL (0.1-1.4); ABSOLUTE NEUT (AUTO) 4.9 10^3/uL (1.7-8.2); BASOPHILS % (AUTO) 0.4 % (0-2); EOSINOPHILS % (AUTO) 0.7 % (0-6); HEMATOCRIT 38.5 % (36.0-47.0); HGB HCT DIFFERENCE 0.5; LYMPHOCYTES % (AUTO) 26.7 % (13-45); MEAN CORPUSCULAR HEMOGLOBIN 28.8 pg (27.0-33.4); MEAN CORPUSCULAR HGB CONC 33.9 g/dL (32.0-36.0); MEAN CORPUSCULAR VOLUME 85 fl (80-97); MONOCYTES % (AUTO) 10.9 % (3-13); RED BLOOD COUNT 4.53 10^6/uL (3.72-5.28); RED CELL DISTRIBUTION WIDTH 13.2 % (11.5-14.0); SEGMENTED NEUTROPHILS % (AUTO) 61.3 % (42-78)
[2016-09-03 20:21] LABS: ALANINE AMINOTRANSFERASE 19 U/L (9-52); ALBUMIN 4.2 g/dL (3.5-5.0); ALKALINE PHOSPHATASE 92 U/L (38-126); ANION GAP 15 (5-19); ASPARTATE AMINO TRANSFERASE 20 U/L (14-36); BILIRUBIN,TOTAL 0.4 mg/dL (0.2-1.3); BLOOD UREA NITROGEN 14 mg/dL (7-20); CALCIUM 10.3 mg/dL (8.4-10.2); CARBON DIOXIDE 21 mmol/L (22-30); CHLORIDE 106 mmol/L (98-107); CREATININE RESULT 0.95 mg/dL (0.52-1.25); GLUCOSE 103 mg/dL (75-110); LIPASE 93.7 U/L (23-300); POTASSIUM 4.3 mmol/L (3.6-5.0); SODIUM 141.8 mmol/L (137-145); TOTAL PROTEIN 7.9 g/dL (6.3-8.2)
--- NOTE | 2016-09-03 22:06 | ER Document Report ---
ED General - General Chief Complaint: Abdominal Pain Stated Complaint: ABDOMINAL PAIN Time seen by provider: 21:30 Mode of Arrival: Ambulatory Information source: Patient Notes: 21-year-old female complains of left lower quadrant pain beginning this morning. Patient reports she's had several visits the emergency department with lower abdominal pain and cramping related to and miscarriage but says her current pain is different. She denies fever, chills, nausea, vomiting , vaginal bleeding or discharge, dysuria urgency frequency. She reports she surgeon she doesn't have any Pelvic infection but wants to know why she is hurting. She denies any right-sided abdominal pain or back pain. She denies any pain to the hips or legs that she does report left lower quadrant pain is worse with walking. Physical Exam: General: Alert, appears well. HEENT: Normocephalic. Atraumatic. PERRLA. Extraocular movements intact. Oropharynx clear. Neck: Supple. Non-tender. Respiratory: No respiratory distress. Clear and equal breath sounds bilaterally. Cardiovascular: Regular rate and rhythm. Abdominal: Normal Inspection. Soft, mild left lower quadrant abdominal pain no guarding rebound rigidity no referred pain. No distension. Normal Bowel Sounds. exam normal external female genitalia. Trace amount of brownish material in the vaginal vault. No cervical motion tenderness. No right adnexal tenderness. Minimal left adnexal tenderness but no palpable masses. Uterus small nontender. Patient would not allow specimen collections Back: Non-tender. No deformity or step off. No CVA tenderness Tremors or warm to plus pulses no cyanosis no edema Neurological speech clear mentation normal moves all extremities well Psychological: Normal affect. Normal Mood. Skin: Warm. Dry. Normal color. TRAVEL OUTSIDE OF THE [place] IN LAST 30 DAYS: No - Related Data Allergies/Adverse Reactions: No Known Allergies Allergy (Verified 09/03/16 18:38) Past Medical History - General Information source: Patient - Social History Smoking Status: Never Smoker Chew tobacco use (# tins/day): No Frequency of alcohol use: None Drug Abuse: None Family History: None Patient has suicidal ideation: No Patient has homicidal ideation: No Renal/ Medical History: Reports: Hx Ovarian Cysts, Hx Pelvic Inflammatory Disease - States she's had GC chlamydia and genital herpes. Denies: Hx Peritoneal Dialysis Psychiatric Medical History: Reports: Hx Attention Deficit Hyperactivity Disorder, Hx Bipolar Disorder, Hx Depression Past Surgical History: Reports: Hx Gynecologic Surgery - Exploratory surgery for endometriosis - Immunizations Hx Diphtheria, Pertussis, Tetanus Vaccination: No Review of Systems - Review of Systems Constitutional: denies: Chills, Fever EENT: denies: Ear pain, Throat pain Cardiovascular: denies: Chest pain, Syncope Respiratory: denies: Cough, Short of breath Gastrointestinal: See HPI Genitourinary: See HPI Female Genitourinary: See HPI. denies: , Vaginal discharge, Vaginal bleeding Musculoskeletal: denies: Back pain Skin: denies: Rash Hematologic/Lymphatic: denies: Enlarged lymph nodes Neurological/Psychological: denies: Weakness, Numbness Course - Re-evaluation Re-evalutation: 09/04/16 01:42 On reevaluation the patient is complaining of nasal congestion and occasional nonproductive cough and requesting something for allergies. I will prescribe an albuterol inhaler for that. Patient has been somewhat difficult to deal with but did ultimately agree to pelvic exam which she refused on her multiple prior visits. That exam and ultrasound of identified findings consistent with left ovarian cyst which is consistent with where she is hurting. Prescribe a short course of tramadol for pain and have her follow-up with [facility] for recheck - Laboratory Result Diagrams: 09/03/16 19:43 09/03/16 19:43 Laboratory results interpreted by me: 09/03/16 09/03/16 19:15 19:43 Carbon Dioxide 21 L Calcium 10.3 H Urine Blood SMALL H Urine Urobilinogen 2.0 H - Diagnostic Test Radiology reviewed: Reports reviewed Discharge - Discharge Clinical Impression: Ovarian cyst Qualifiers: Laterality: left Qualified Code(s): N83.202 - Unspecified ovarian cyst, left side Condition: Stable Disposition: HOME, SELF-CARE Additional Instructions: Ovarian Cyst Your examination shows the presence of an ovarian cyst. This is a ball of fluid attached to the ovary. Ovarian cysts in women of child-bearing age are usually innocent. However, the cyst may cause pain when it grows or bursts. An innocent ovarian cyst will usually go away by itself. When the cyst becomes painful, you should rest. Pain medication may be required. Some women find a hot water bottle soothing. The pain usually resolves within one or two days. After menopause, an ovarian cyst may mean a tumor, and requires more aggressive evaluation -- usually surgery is recommended to remove or biopsy the cyst. A very large cyst requires evaluation at any age. Most cysts (even the innocent ones) require follow-up examination. Call the doctor or return at any time if the pain increases significantly, if you become faint, or if you experience vaginal bleeding. Prescriptions: Albuterol Sulfate [Proair HFA Inhalation Aerosol 8.5 gm MDI] 2 puff IH Q4H PRN # 1 mdi PRN Reason: Tramadol HCl 50 mg PO BID PRN #7 tablet PRN Reason: For Pain Referrals: RICHARD WILLOUGHBY MD [ACTIVE STAFF] - Follow up in 1 week
[2016-09-04] MEDS ORDERED: BENZONATATE 100 MG CAPSULE PO ONE (00:25)
== END 2016-09-04 02:18 | disposition home or self-care (01) ==
LOC: ER 18:23
DX: N83.292 Other ovarian cyst, left side (principal); R10.32 Left lower quadrant pain; Z87.59 Personal history of other complications of pregnancy, childbirth and the puerperium; R09.81 Nasal congestion; R05 Cough
CPT/HCPCS: 99284; 36415; 84702; 83690; 85025; 80053; 81001; 76830; 93976; J3490; S0119

== ENCOUNTER 2016-09-11 03:21 | Emergency (ER) | payer MEDICAID ==
[2016-09-11] MEDS ORDERED: IBUPROFEN 800 MG TABLET PO ONE (04:35)
[2016-09-11 04:44] LABS: APPEARANCE,URINE SLIGHTLY-CLOUDY; BILIRUBIN,URINE NEGATIVE (NEGATIVE); GLUCOSE, URINE NEGATIVE (NEGATIVE); KETONES,URINE TRACE mg/dL (NEGATIVE); LEUKOCYTE ESTERASE,URINE NEGATIVE (NEGATIVE); NITRITE,URINE NEGATIVE (NEGATIVE); PROTEIN,URINE NEGATIVE (NEGATIVE); URINE SPECIFIC GRAVITY 1.031; UROBILINOGEN,URINE NEGATIVE mg/dL (<2.0)
--- NOTE | 2016-09-11 05:23 | ER Document Report ---
ED General - General Chief Complaint: Pelvic Pain Stated Complaint: PELVIC PAIN Mode of Arrival: Medic Information source: Patient Notes: She presents to the emergency department with complaints of pelvic pain. Patient complains of left lower abdominal pain reports history of ovarian cyst. Patient has been evaluated and treated here multiple times for the same symptoms. Patient was diagnosed with ovarian cyst last week. Patient reports nausea today denies fever vomiting diarrhea. Patient reports she is homeless and does not have any place to live. Patient reports she has not taken anything for pain. TRAVEL OUTSIDE OF THE [place] IN LAST 30 DAYS: No - HPI Onset: Other - today Quality of pain: Achy Severity: Severe Pain Level: 4 Associated symptoms: None Exacerbated by: Denies Relieved by: Denies Similar symptoms previously: Yes Recently seen / treated by doctor: Yes - Related Data Allergies/Adverse Reactions: No Known Allergies Allergy (Verified 09/03/16 18:38) Past Medical History - General Information source: Patient Last Menstrual Period: aug - Social History Smoking Status: Current Every Day Smoker Cigarette use (# per day): Yes Chew tobacco use (# tins/day): No Frequency of alcohol use: None Drug Abuse: None Lives with: Homeless Family History: None Patient has suicidal ideation: No Patient has homicidal ideation: No Renal/ Medical History: Reports: Hx Ovarian Cysts, Hx Pelvic Inflammatory Disease - States she's had GC chlamydia and genital herpes. Denies: Hx Peritoneal Dialysis Psychiatric Medical History: Reports: Hx Attention Deficit Hyperactivity Disorder, Hx Bipolar Disorder, Hx Depression Past Surgical History: Reports: Hx Gynecologic Surgery - Exploratory surgery for endometriosis - Immunizations Hx Diphtheria, Pertussis, Tetanus Vaccination: No Review of Systems - Review of Systems Notes: Review HPI for review of systems., All other systems negative Physical Exam - Vital signs Vitals: Temp Pulse Resp BP Pulse Ox 98.1 F 82 14 102/54 L 100 09/11/16 03:33 09/11/16 03:33 09/11/16 03:33 09/11/16 03:33 09/11/16 03:33 - Notes Notes: PHYSICAL EXAMINATION: GENERAL: Well-appearing and in no acute distress nontoxic looking HEAD: Atraumatic, normocephalic. EYES: Pupils equal round extraocular movements intact, sclera anicteric, conjunctiva are normal. ENT: nares patent, Moist mucous membranes. NECK: Normal range of motion, supple without lymphadenopathy LUNGS: CTAB and equal. No wheezes rales or rhonchi. HEART: Regular rate and rhythm without murmurs ABDOMEN: Soft, left lower quad tenderness. No guarding, no rebound EXTREMITIES: Normal range of motion, no pitting edema. No cyanosis. NEUROLOGICAL: Cranial nerves grossly intact. Normal sensory/motor PSYCH: Normal mood, normal affect. SKIN: Warm, Dry, normal turgor, no rashes or lesions noted Course - Re-evaluation Re-evalutation: 09/11/16 06:18 She was instructed on ultrasound report still hurting for STD cultures. Patient reports she does not have an STD. Patient instructed to follow up with the primary care provider or the [facility] or the health department. She verbalized understanding. 09/11/16 06:25 - Vital Signs Vital signs: Temp Pulse Resp BP Pulse Ox 97.9 F 70 16 103/67 100 09/11/16 06:31 09/11/16 06:31 09/11/16 06:31 09/11/16 06:31 09/11/16 06:31 - Laboratory Laboratory results interpreted by me: 09/11/16 04:22 Urine Ketones TRACE H - Diagnostic Test Radiology reviewed: Image reviewed, Reports reviewed - ovarian cyst increased 4.4 from 3.5 no torsion Procedures - Pelvic Exam Pelvic exam Cultures obtained: Yes Wet prep obtained: Yes Herpes culture obtained: No POC sent to lab: No Foreign body removed: No Bimanual exam performed: Yes Witnessed by: netta couch Discharge - Discharge Clinical Impression: Ovarian cyst Qualifiers: Laterality: left Qualified Code(s): N83.202 - Unspecified ovarian cyst, left side Condition: Stable Disposition: HOME, SELF-CARE Instructions: Ob-Cancer Registrar Doctors, Ovarian Cyst ([facility]), Ibuprofen (General) ([facility]), [facility], [facility] Additional Instructions: *You have been evaluated for abdominal pain, ovarian cysts *The STD cultures are pending, you will be contacted should you need antibiotics *Follow up with the health department for further concerns *Take medication as prescribed for pain *The ovarian cyst is larger when compared to your Ultrasound completed on . Follow up with the [facility] for recheck of this cyst within one week. *Plan US recheck within 6 weeks *Follow up with a primary care provider or [facility] within one week *Return to ED for worsening condition, changes, needs, increased severe pain. Prescriptions: Ibuprofen [Motrin 800 mg Tablet] 800 mg PO TID #30 tablet
[2016-09-11 06:34] VITALS: BP 103/67
[2016-09-11 06:59] LABS: CHLAM PCR NOT DETECTED (NOT DETECT)
== END 2016-09-11 06:35 | disposition home or self-care (01) ==
LOC: ER 03:21
DX: N83.202 Unspecified ovarian cyst, left side (principal); R10.2 Pelvic and perineal pain; R11.0 Nausea; F17.210 Nicotine dependence, cigarettes, uncomplicated; Z59.0 Homelessness
CPT/HCPCS: 99284; 87086; 87210; 87088; 81001; 87491; 87591; 76830; 93976; J3490

== ENCOUNTER 2016-09-12 15:02 | Emergency (ER) | payer MEDICAID ==
--- NOTE | 2016-09-12 15:12 | ER Document Report ---
ED Medical Screen (RME) - General Stated Complaint: ABDOMINAL PAIN Time seen by provider: 15:08 Mode of Arrival: Ambulatory Information source: Patient Notes: 21-year-old female complaining of passing tissue and blood from her vagina when she urinates today started at 12 noon. Denies . She does have some accompanied pelvic pain. LMP 2-9-17. Hx. ovarian cyst, PID, endometriosis. TRAVEL OUTSIDE OF THE [place] IN LAST 30 DAYS: No - Related Data Allergies/Adverse Reactions: No Known Allergies Allergy (Verified 09/03/16 18:38) Past Medical History Renal/ Medical History: Reports: Hx Ovarian Cysts, Hx Pelvic Inflammatory Disease - States she's had GC chlamydia and genital herpes. Denies: Hx Peritoneal Dialysis Psychiatric Medical History: Reports: Hx Attention Deficit Hyperactivity Disorder, Hx Bipolar Disorder, Hx Depression Past Surgical History: Reports: Hx Gynecologic Surgery - Exploratory surgery for endometriosis - Immunizations Hx Diphtheria, Pertussis, Tetanus Vaccination: No Physical Exam - Vital signs Vitals: Temp Pulse Resp BP Pulse Ox 97.5 F 85 16 105/66 99 09/12/16 15:06 09/12/16 15:06 09/12/16 15:06 09/12/16 15:06 09/12/16 15:06 Course - Vital Signs Vital signs: Temp Pulse Resp BP Pulse Ox 97.5 F 85 16 105/66 99 09/12/16 15:06 09/12/16 15:06 09/12/16 15:06 09/12/16 15:06 09/12/16 15:06
[2016-09-12 15:37] LABS: APPEARANCE,URINE SLIGHTLY-CLOUDY; BILIRUBIN,URINE NEGATIVE (NEGATIVE); GLUCOSE, URINE NEGATIVE (NEGATIVE); KETONES,URINE NEGATIVE (NEGATIVE); LEUKOCYTE ESTERASE,URINE NEGATIVE (NEGATIVE); NITRITE,URINE NEGATIVE (NEGATIVE); PROTEIN,URINE NEGATIVE (NEGATIVE); URINE SPECIFIC GRAVITY 1.013; UROBILINOGEN,URINE NEGATIVE mg/dL (<2.0)
[2016-09-12 15:39] LABS: ABSOLUTE EOSINOPHILS # (AUTO) 0.1 10^3/uL (0.0-0.6); ABSOLUTE LYMPHOCYTES (AUTO) 2.4 10^3/uL (0.5-4.7); ABSOLUTE MONOCYTES (AUTO) 0.6 10^3/uL (0.1-1.4); BASOPHILS % (AUTO) 0.4 % (0-2); HEMATOCRIT 34.8 % (36.0-47.0); HEMOGLOBIN 11.5 g/dL (12.0-15.5); HGB HCT DIFFERENCE -0.3; LYMPHOCYTES % (AUTO) 39.5 % (13-45); MEAN CORPUSCULAR HEMOGLOBIN 28.1 pg (27.0-33.4); MEAN CORPUSCULAR HGB CONC 33.1 g/dL (32.0-36.0); MEAN CORPUSCULAR VOLUME 85 fl (80-97); MONOCYTES % (AUTO) 9.2 % (3-13); RED BLOOD COUNT 4.11 10^6/uL (3.72-5.28); SEGMENTED NEUTROPHILS % (AUTO) 48.9 % (42-78); WHITE BLOOD COUNT 6.2 10^3/uL (4.0-10.5)
--- NOTE | 2016-09-12 15:51 | ER Document Report ---
ED General <LV ZIMMERMAN - Last Filed: 09/12/16 16:57> - General Mode of Arrival: Ambulatory Information source: Patient TRAVEL OUTSIDE OF THE [place] IN LAST 30 DAYS: No - HPI Patient complains to provider of: Vaginal Discharge Onset: Last week Onset/Duration: Sudden, Persistent Associated symptoms: Other - suprapubic abdominal pain <RACHAEL CLIFFORD - Last Filed: 09/12/16 17:48> - General Chief Complaint: Pelvic Pain Stated Complaint: ABDOMINAL PAIN Notes: Patient is a 21 y/o female presenting to the emergency department concerned of vaginal bleeding with "tissue discharge". Patient has been seen here multiple times recently for similar symptoms and was diagnosed with an ovarian cyst. Patient is also experiencing mild suprapubic abdominal pain. Patient states that she now has insurance, so she would like to get the information to see an [facility] [employer] [facility] to follow up and discuss concerns about possible infertility as she has just recently had a miscarriage. (RACHAEL CLIFFORD) - Related Data Allergies/Adverse Reactions: No Known Allergies Allergy (Verified 09/03/16 18:38) Past Medical History - General Information source: Patient - Social History Smoking Status: Unknown if Ever Smoked Chew tobacco use (# tins/day): No Frequency of alcohol use: None Drug Abuse: None Family History: None Patient has suicidal ideation: No Patient has homicidal ideation: No Renal/ Medical History: Reports: Hx Ovarian Cysts, Hx Pelvic Inflammatory Disease - States she's had GC chlamydia and genital herpes. Denies: Hx Peritoneal Dialysis Psychiatric Medical History: Reports: Hx Attention Deficit Hyperactivity Disorder, Hx Bipolar Disorder, Hx Depression Past Surgical History: Reports: Hx Gynecologic Surgery - Exploratory surgery for endometriosis - Immunizations Hx Diphtheria, Pertussis, Tetanus Vaccination: No <RACHAEL CLIFFORD - Last Filed: 09/12/16 17:48> Review of Systems - Review of Systems Constitutional: No symptoms reported EENT: No symptoms reported Cardiovascular: No symptoms reported Respiratory: No symptoms reported Gastrointestinal: See HPI, Abdominal pain - suprapubic Genitourinary: No symptoms reported Female Genitourinary: See HPI, Vaginal discharge, Vaginal bleeding Musculoskeletal: No symptoms reported Skin: No symptoms reported Hematologic/Lymphatic: No symptoms reported Neurological/Psychological: No symptoms reported -: Yes All other systems reviewed and negative <RACHAEL CLIFFORD - Last Filed: 09/12/16 17:48> Physical Exam - Vital signs Interpretation: Normal - General General appearance: Appears well, Alert - HEENT Head: Normocephalic, Atraumatic Eyes: Normal Pupils: PERRL - Respiratory Respiratory status: No respiratory distress Chest status: Nontender Breath sounds: Normal Chest palpation: Normal - Cardiovascular Rhythm: Regular Heart sounds: Normal auscultation Murmur: No - Abdominal Inspection: Normal Distension: No distension Bowel sounds: Normal Tenderness: Nontender Organomegaly: No organomegaly - Neurological Neuro grossly intact: Yes Cognition: Normal Dale Coma Scale Eye Opening: Spontaneous Hye Coma Scale Verbal: Oriented Hye Coma Scale Motor: Obeys Commands Hye Coma Scale Total: 15 Speech: Normal - Psychological Associated symptoms: Normal affect, Normal mood - Skin Skin Temperature: Warm Skin Moisture: Dry Skin Color: Normal <RACHAEL CLIFFORD - Last Filed: 09/12/16 17:48> - Vital signs Vitals: Temp Pulse Resp BP Pulse Ox 97.5 F 85 16 105/66 99 09/12/16 15:06 09/12/16 15:06 09/12/16 15:06 09/12/16 15:06 09/12/16 15:06 Course - Laboratory Result Diagrams: 09/12/16 15:15 09/12/16 15:15 <LV ZIMMERMAN - Last Filed: 09/12/16 16:57> - Laboratory Result Diagrams: 09/12/16 15:15 09/12/16 15:15 <RACHAEL CLIFFORD - Last Filed: 09/12/16 17:48> - Vital Signs Vital signs: Temp Pulse Resp BP Pulse Ox 97.5 F 85 16 105/66 99 09/12/16 15:06 09/12/16 15:06 09/12/16 15:06 09/12/16 15:06 09/12/16 15:06 - Laboratory Laboratory results interpreted by vt: 09/12/16 09/12/16 09/12/16 15:15 15:15 15:15 Hgb 11.5 L Hct 34.8 L Chloride 108 H Glucose 74 L Calcium 10.3 H Urine Blood LARGE H Discharge <LV ZIMMERMAN - Last Filed: 09/12/16 16:57> <RACHAEL CLIFFORD - Last Filed: 09/12/16 17:48> - Discharge Clinical Impression: recent miscarriage, Hematuria Additional Instructions: Miscarriage You have had a miscarriage (medically called a "spontaneous "). The miscarriage occurred because the fetus did not develop normally. There is nothing you did to cause it, and nothing you could have done to prevent it. About one in four ends in miscarriage. You should rest in bed for two or three days. As there is some risk of infection of the uterus, you should not have intercourse for one week (or until okayed by your physician). You might not have a period for six to eight weeks. You should not become again for at least three months -- the uterus requires time to get back to normal. Call the doctor or return for re-examination if there is heavy or persistent vaginal bleeding, fever, foul discharge, continued cramping pains, or abdominal pain. Hematuria Hematuria, or blood in your urine, can be caused by minor medical problems , such as a bladder infection, or by more serious medical conditions, such as kidney stones or even tumors of the bladder or kidney. If the cause of the hematuria is known (such as a bladder infection) and can be treated, it may not need further evaluation. If the cause is not known, it will usually require further evaluation by a specialist, such as a urologist. In particular, unexplained hematuria in the older patient must be evaluated to rule out a serious condition, such as a bladder or kidney tumor. If the hematuria worsens or you are passing clots and then are unable to urinate, you should be re-evaluated. A catheter may need to be placed in the bladder to permit passage of urine. If you develop high fever, severe pain, or other new or worsening symptoms, return to the Emergency Department for re- evaluation. Referrals: [facility] [Provider Group] - Follow up in 3-5 days (Call for an appointment to be seen in follow-up in 3-4 days return for increasing worsening or new symptoms) Scribe Documentation - Scribe Written by Andrews:: Rachael Clifford 09/12/2016 1623 acting as scribe for :: Apolinar <RACHAEL CLIFFORD - Last Filed: 09/12/16 17:48>
[2016-09-12 15:55] LABS: ALANINE AMINOTRANSFERASE 16 U/L (9-52); ALBUMIN 4.2 g/dL (3.5-5.0); ALKALINE PHOSPHATASE 78 U/L (38-126); ANION GAP 10 (5-19); ASPARTATE AMINO TRANSFERASE 22 U/L (14-36); BILIRUBIN,TOTAL 0.5 mg/dL (0.2-1.3); BLOOD UREA NITROGEN 20 mg/dL (7-20); CALCIUM 10.3 mg/dL (8.4-10.2); CARBON DIOXIDE 26 mmol/L (22-30); CHLORIDE 108 mmol/L (98-107); CREATININE RESULT 1.02 mg/dL (0.52-1.25); GLUCOSE 74 mg/dL (75-110); POTASSIUM 4.4 mmol/L (3.6-5.0); SODIUM 144.1 mmol/L (137-145); TOTAL PROTEIN 7.2 g/dL (6.3-8.2)
[2016-09-12 17:04] LABS: CHLAM PCR NOT DETECTED (NOT DETECT)
[2016-09-12 17:28] VITALS: BP 108/66
== END 2016-09-12 17:27 | disposition home or self-care (01) ==
LOC: ER 15:02
DX: R31.9 Hematuria, unspecified (principal); R10.2 Pelvic and perineal pain; R10.9 Unspecified abdominal pain
CPT/HCPCS: 36415; 80053; 81001; 84703; 85025; 87086; 87088; 87491; 87591; 99284

== ENCOUNTER 2017-09-07 13:07 | Emergency (ER) | payer SELFPAY ==
--- NOTE | 2017-09-07 13:47 | ER Document Report ---
ED Medical Screen (RME) - General Chief Complaint: Abdominal Pain Stated Complaint: ABDOMINAL PAIN Time Seen by Provider: 09/07/17 13:41 Mode of Arrival: Ambulatory Information source: Patient Notes: 22-year-old female presents with complaints of white vaginal discharge a 4 day duration patient last had intercourse greater than 1 month ago notes mild abdominal pain. Patient notes she was recently treated for bacterial vaginosis and believes she has a yeast infection patient admits to abdominal pain and headache and wants to be "tested for every type of infection" I have greeted and performed a rapid initial assessment of this patient. A comprehensive ED assessment and evaluation of the patient, analysis of test results and completion of the medical decision making process will be conducted by additional ED providers. PHYSICAL EXAMINATION: GENERAL: Well-appearing, well-nourished and in no acute distress. HEAD: Atraumatic, normocephalic. EYES: Pupils equal round extraocular movements intact, conjunctiva are normal. ENT: Nares patent NECK: Normal range of motion LUNGS: No respiratory distress Musculoskeletal: Normal range of motion NEUROLOGICAL: Normal speech, normal gait. PSYCH: Normal mood, normal affect. SKIN: Warm, Dry, normal turgor, no rashes or lesions noted. TRAVEL OUTSIDE OF THE [place] IN LAST 30 DAYS: No - Related Data Allergies/Adverse Reactions: No Known Allergies Allergy (Verified 09/07/17 13:09) Past Medical History - Social History Chew tobacco use (# tins/day): No Frequency of alcohol use: None Drug Abuse: None Renal/ Medical History: Reports: Hx Ovarian Cysts, Hx Pelvic Inflammatory Disease - States she's had GC chlamydia and genital herpes. Denies: Hx Peritoneal Dialysis Psychiatric Medical History: Reports: Hx Attention Deficit Hyperactivity Disorder, Hx Bipolar Disorder, Hx Depression Past Surgical History: Reports: Hx Gynecologic Surgery - Exploratory surgery for endometriosis - Immunizations Hx Diphtheria, Pertussis, Tetanus Vaccination: No Physical Exam - Vital signs Vitals: Temp Pulse Resp BP Pulse Ox 98.5 F 82 18 115/69 100 09/07/17 13:11 09/07/17 13:11 09/07/17 13:11 09/07/17 13:11 09/07/17 13:11 Course - Vital Signs Vital signs: Temp Pulse Resp BP Pulse Ox 98.5 F 82 18 115/69 100 09/07/17 13:11 09/07/17 13:11 09/07/17 13:11 09/07/17 13:11 09/07/17 13:11
[2017-09-07 14:26] LABS: ABSOLUTE EOSINOPHILS # (AUTO) 0.1 10^3/uL (0.0-0.6); ABSOLUTE LYMPHOCYTES (AUTO) 2.7 10^3/uL (0.5-4.7); ABSOLUTE MONOCYTES (AUTO) 0.6 10^3/uL (0.1-1.4); ABSOLUTE NEUT (AUTO) 2.3 10^3/uL (1.7-8.2); BASOPHILS % (AUTO) 0.3 % (0-2); EOSINOPHILS % (AUTO) 1.4 % (0-6); HEMOGLOBIN 11.2 g/dL (12.0-15.5); LYMPHOCYTES % (AUTO) 48.1 % (13-45); MEAN CORPUSCULAR HEMOGLOBIN 26.3 pg (27.0-33.4); MEAN CORPUSCULAR HGB CONC 32.9 g/dL (32.0-36.0); MEAN CORPUSCULAR VOLUME 80 fl (80-97); MONOCYTES % (AUTO) 10.1 % (3-13); PLATELET COUNT 352 10^3/uL (150-450); RED BLOOD COUNT 4.26 10^6/uL (3.72-5.28); RED CELL DISTRIBUTION WIDTH 13.4 % (11.5-14.0); SEGMENTED NEUTROPHILS % (AUTO) 40.1 % (42-78); TOTAL CELLS COUNTED % (AUTO) 100 %; WHITE BLOOD COUNT 5.7 10^3/uL (4.0-10.5)
--- NOTE | 2017-09-07 14:26 | ER Document Report ---
ED GI/ - General Chief Complaint: Abdominal Pain Stated Complaint: ABDOMINAL PAIN Time Seen by Provider: 09/07/17 13:41 Mode of Arrival: Ambulatory Information source: Patient Notes: 22 yo female presents to ed for complaint of headache, abdominal pain, white vaginal discharge, vaginal irritation for 4 days. Patient complains of urinary frequency. states she has been diagnosed with bcacterial vaginosis about 1.5 months ago. She states she has had cervical stenosis with surgery due to depo, endometriosis with laparoscopy, and hx of Pelvic inflammatory disease. TRAVEL OUTSIDE OF THE [place] IN LAST 30 DAYS: No - HPI Patient complains to provider of: Pelvic pain, Vaginal discharge, Vaginal pain Onset: Other - 4 days Timing/Duration: Gradual, Persistent Quality of pain: Achy, Burning, Cramping Severity at maximum: Moderate Severity in ED: Moderate Pain Level: 2 Location: Pelvis, Vaginal Vaginal bleeding (Compared to normal period): None LMP: 08/26-09/01/17 Associated symptoms: Urinary frequency, Vaginal discharge Exacerbated by: Denies Relieved by: Denies Similar symptoms previously: Yes Recently seen / treated by doctor: Yes - Related Data Allergies/Adverse Reactions: No Known Allergies Allergy (Verified 09/07/17 13:09) Past Medical History - General Information source: Patient - Social History Smoking Status: Never Smoker Chew tobacco use (# tins/day): No Frequency of alcohol use: None Drug Abuse: None Occupation: none Lives with: Parents Family History: Arthritis, CAD, CVA, DM, Hyperlipidemia, Hypertension, Malignancy, Thyroid Disfunction. denies: COPD Patient has suicidal ideation: No Patient has homicidal ideation: No - Past Medical History Cardiac Medical History: Reports: None Pulmonary Medical History: Reports: None EENT Medical History: Reports: None Neurological Medical History: Reports: None Endocrine Medical History: Reports: None Renal/ Medical History: Reports: Hx Ovarian Cysts, Hx Pelvic Inflammatory Disease - States she's had GC chlamydia and genital herpes, Other - endometriosis, cervical stenosis Malignancy Medical History: Reports: None GI Medical History: Reports: None Musculoskeltal Medical History: Reports None Skin Medical History: Reports None Psychiatric Medical History: Reports: Hx Attention Deficit Hyperactivity Disorder, Hx Bipolar Disorder, Hx Depression Traumatic Medical History: Reports: None Infectious Medical History: Reports: None Past Surgical History: Reports: Hx Gynecologic Surgery - Exploratory surgery for endometriosis, stretching the cervic due to stenosi - Immunizations Hx Diphtheria, Pertussis, Tetanus Vaccination: No Review of Systems - Review of Systems Notes: Constitutional: [PRESENT: as per HPI. ABSENT: chills, fever(s), headache(s), weight gain, weight loss] Eyes: [ABSENT: visual disturbances] Ears: [ABSENT: hearing changes] Cardiovascular: [ABSENT: chest pain, dyspnea on exertion, edema, orthropnea, palpitations] Respiratory: [ABSENT: cough, hemoptysis] Gastrointestinal: [ABSENT: abdominal pain, constipation, diarrhea, hematemesis, hematochezia, nausea, vomiting] Genitourinary: Pelvic pain vaginal discharge vaginal itching Musculoskeletal: [ABSENT: joint swelling] Integumentary: [ABSENT: rash, wounds] Neurological: [ABSENT: abnormal gait, abnormal speech, confusion, dizziness, focal weakness, syncope] Psychiatric: [ABSENT: anxiety, depression, homicidal ideation, suicidal ideation ] Endocrine: [ABSENT: cold intolerance, heat intolerance, menstrual abnormalities , polydipsia, polyuria] Hematologic/Lymphatic: [ABSENT: easy bleeding, easy bruising, lymphadenopathy] Physical Exam - Vital signs Vitals: Temp Pulse Resp BP Pulse Ox 98.5 F 82 18 115/69 100 09/07/17 13:11 09/07/17 13:11 09/07/17 13:11 09/07/17 13:11 09/07/17 13:11 - Notes Notes: PHYSICAL EXAMINATION: GENERAL: Well-appearing, well-nourished and in no acute distress. HEAD: Atraumatic, normocephalic. EYES: Pupils equal round and reactive to light, extraocular movements intact, conjunctiva are normal. ENT: Nares patent, oropharynx clear without exudates. Moist mucous membranes. NECK: Normal range of motion, supple without lymphadenopathy LUNGS: Breath sounds clear to auscultation bilaterally and equal. No wheezes rales or rhonchi. HEART: Regular rate and rhythm without murmurs ABDOMEN: Soft, nontender, nondistended abdomen. No guarding, no rebound. No masses appreciated. Female : Vaginal irritation with white vaginal discharge did not do a internal exam patient did self swab with wet mount. Minimal pelvic tenderness no adnexal tenderness Musculoskeletal: Normal range of motion, no pitting or edema. No cyanosis. NEUROLOGICAL: Cranial nerves grossly intact. Normal speech, normal gait. Normal sensory, motor exams PSYCH: Normal mood, normal affect. SKIN: Warm, Dry, normal turgor, no rashes or lesions noted. Course - Re-evaluation Re-evalutation: 09/07/17 15:54 Discussed patient's HIV results with patient, which were negative. Discussed labs and urine with patient. Patient is positive for bacterial vaginosis and has been treated with Flagyl in the ED and discharged home with a prescription for Flagyl. Patient was instructed to call ED in a couple hours for the results of the gonorrhea and chlamydia as there is results are not back yet. Patient has refused to take the Rocephin and azithromycin at this time until she knows she has a positive or negative culture. She was discharged home to follow-up with her primary doctor. - Vital Signs Vital signs: Temp Pulse Resp BP Pulse Ox 98.4 F 71 18 122/75 100 09/07/17 16:02 09/07/17 16:02 09/07/17 16:02 09/07/17 16:02 09/07/17 16:02 - Laboratory Result Diagrams: 09/07/17 14:10 09/07/17 14:10 Laboratory results interpreted by me: 09/07/17 09/07/17 14:10 14:10 Hgb 11.2 L Hct 34.0 L MCH 26.3 L Seg Neutrophils % 40.1 L Lymphocytes % 48.1 H Carbon Dioxide 20 L Discharge - Discharge Clinical Impression: Bacterial vaginosis Condition: Stable Disposition: HOME, SELF-CARE Instructions: Family Physicians / Practices Additional Instructions: VAGINOSIS, BACTERIAL: Your exam shows you have bacterial vaginosis. This condition is due to an overgrowth of bacteria in the vagina. Symptoms may include vaginal itching or pain, a smelly discharge, and sometimes burning with urination. Normally this is not transmitted by sexual contact. Vaginosis can be treated with oral or topical antibiotics. Metronidazole ( Flagyl) pills are usually effective. Topical vaginal creams include Cleocin and Metro-Gel. You should avoid sexual contact until your symptoms are all better. Call the doctor if you develop pelvic pain, fever, or problems with urination, or if you don't improve as expected. METRONIDAZOLE: Metronidazole (Flagyl) has been prescribed. This medication is used to kill a type of bacteria called anaerobes, and protozoan parasites such as trichomonas and Giardia. Flagyl often causes a metallic taste in the mouth and mild nausea. Do not use alcohol in any form with Flagyl (including alcohol in medication elixirs). Flagyl interacts with alcohol to cause flushing, palpitations, headache, stomach cramps, and vomiting. Do not use Flagyl if you are taking Antabuse (disulfiram). Call the doctor at once if you develop rash, shortness of breath, itching, or lightheadedness. Usually when we test a person for chlamydia and gonorrhea we treat them with azithromycin and Rocephin before we discharge the patient home because we did not wait for the results of the cultures for the gonorrhea and chlamydia.. Please call within the next 2 hours and check on the results of your culture if the cultures are positive you will need to be medicated for which have a culture is positive. Your HIV test was negative your bacterial vaginosis was positive you will be treated with Flagyl for your bacterial vaginosis and yeast test was negative and your urinalysis was negative FOLLOW-UP CARE: If you have been referred to a physician for follow-up care, call the physician s office for an appointment as you were instructed or within the next two days. If you experience worsening or a significant change in your symptoms, notify the physician immediately or return to the Emergency Department at any time for re-evaluation. Prescriptions: Metronidazole [Flagyl 500 mg Tablet] 500 mg PO BID #14 tablet Referrals: VERONICA LOPEZ MD [Primary Care Provider] - Follow up as needed
[2017-09-07 14:28] LABS: BACTERIA (WET MOUNT) 3+ BACTERIA SEEN; EPITHELIALS (WET MOUNT) 4+ EPITHELIALS SEEN; RBCS (WET MOUNT) RARE RBCS SEEN; T.VAGINALIS (WET MOUNT) NO TRICHOMONAS SEEN; WBCS (WET MOUNT) 1+ WBCS SEEN; YEAST (WET MOUNT) NO YEAST SEEN
[2017-09-07 14:49] LABS: ALANINE AMINOTRANSFERASE 28 U/L (9-52); ALBUMIN 4.4 g/dL (3.5-5.0); ALKALINE PHOSPHATASE 77 U/L (38-126); ANION GAP 15 (5-19); ASPARTATE AMINO TRANSFERASE 22 U/L (14-36); BILIRUBIN,DIRECT 0.1 mg/dL (0.0-0.4); BILIRUBIN,TOTAL 0.3 mg/dL (0.2-1.3); BLOOD UREA NITROGEN 11 mg/dL (7-20); CARBON DIOXIDE 20 mmol/L (22-30); CHLORIDE 106 mmol/L (98-107); GLUCOSE 82 mg/dL (75-110); POTASSIUM 4.2 mmol/L (3.6-5.0); SODIUM 141.2 mmol/L (137-145); TOTAL PROTEIN 7.5 g/dL (6.3-8.2)
[2017-09-07 15:00] LABS: APPEARANCE,URINE CLEAR; BILIRUBIN,URINE NEGATIVE (NEGATIVE); COLOR,URINE YELLOW; GLUCOSE, URINE NEGATIVE (NEGATIVE); KETONES,URINE NEGATIVE (NEGATIVE); LEUKOCYTE ESTERASE,URINE NEGATIVE (NEGATIVE); NITRITE,URINE NEGATIVE (NEGATIVE); PROTEIN,URINE NEGATIVE (NEGATIVE); URINE SPECIFIC GRAVITY 1.016; UROBILINOGEN,URINE NEGATIVE mg/dL (<2.0)
[2017-09-07] MEDS ORDERED: AZITHROMYCIN 250 MG TABLET PO ONE (15:08)
[2017-09-07] MEDS ORDERED: METRONIDAZOLE 500 MG TABLET PO ONE (15:08)
[2017-09-07] MEDS ORDERED: CEFTRIAXONE INJ 250 MG VIAL IM ONE (15:08)
[2017-09-07] MEDS ORDERED: LIDOCAINE 1% INJ-PF (10 MG/ML) 30 ML SDV INJ ONE (15:08)
[2017-09-07 16:03] VITALS: BP 122/75
[2017-09-07 16:23] LABS: CHLAM PCR NOT DETECTED (NOT DETECT); GON PCR NOT DETECTED (NOT DETECT)
== END 2017-09-07 16:03 | disposition home or self-care (01) ==
LOC: ER 13:07
DX: N76.0 Acute vaginitis (principal); B96.89 Other specified bacterial agents as the cause of diseases classified elsewhere; R10.9 Unspecified abdominal pain; R51 Headache; R35.0 Frequency of micturition; R10.2 Pelvic and perineal pain
CPT/HCPCS: 36415; 80053; 81001; 84702; 85025; 86701; 87210; 87491; 87591; 99284

== ENCOUNTER 2018-02-01 16:25 | Emergency (ER) | payer SELFPAY ==
[2018-02-01] MEDS ORDERED: LORAZEPAM INJ 2 MG/1 ML VIAL IV ONE ×2 (17:13→18:55)
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
[2018-02-01 18:14] LABS: ABSOLUTE BASOPHILS # (AUTO) 0.1 10^3/uL (0.0-0.2); ABSOLUTE LYMPHOCYTES (AUTO) 1.3 10^3/uL (0.5-4.7); ABSOLUTE MONOCYTES (AUTO) 0.8 10^3/uL (0.1-1.4); ABSOLUTE NEUT (AUTO) 8.3 10^3/uL (1.7-8.2); BASOPHILS % (AUTO) 0.5 % (0-2); EOSINOPHILS % (AUTO) 0.1 % (0-6); HEMATOCRIT 38.3 % (36.0-47.0); LYMPHOCYTES % (AUTO) 12.1 % (13-45); MEAN CORPUSCULAR HEMOGLOBIN 26.8 pg (27.0-33.4); MEAN CORPUSCULAR HGB CONC 33.9 g/dL (32.0-36.0); MEAN CORPUSCULAR VOLUME 79 fl (80-97); MONOCYTES % (AUTO) 7.6 % (3-13); PLATELET COUNT 361 10^3/uL (150-450); RED BLOOD COUNT 4.85 10^6/uL (3.72-5.28); RED CELL DISTRIBUTION WIDTH 15.4 % (11.5-14.0); SEGMENTED NEUTROPHILS % (AUTO) 79.7 % (42-78); TOTAL CELLS COUNTED % (AUTO) 100 %; WHITE BLOOD COUNT 10.4 10^3/uL (4.0-10.5)
[2018-02-01 18:35] LABS: ALANINE AMINOTRANSFERASE 13 U/L (9-52); ALBUMIN 5.1 g/dL (3.5-5.0); ALKALINE PHOSPHATASE 81 U/L (38-126); ASPARTATE AMINO TRANSFERASE 21 U/L (14-36); BILIRUBIN,DIRECT 0.3 mg/dL (0.0-0.4); BILIRUBIN,TOTAL 0.5 mg/dL (0.2-1.3); BLOOD UREA NITROGEN 10 mg/dL (7-20); CALCIUM 10.7 mg/dL (8.4-10.2); GLUCOSE 108 mg/dL (75-110); POTASSIUM 3.9 mmol/L (3.6-5.0); TOTAL PROTEIN 9.3 g/dL (6.3-8.2)
[2018-02-01 18:41] LABS: CARBON DIOXIDE 16 mmol/L (22-30); CHLORIDE 106 mmol/L (98-107); SODIUM 143.9 mmol/L (137-145)
[2018-02-01 18:42] LABS: ANION GAP 22 (5-19)
[2018-02-01] MEDS ORDERED: NORMAL SALINE 1000 ML 1,000 ML IV PRN (18:54)
[2018-02-01 22:16] LABS: URINE BARBITURATES SCREEN NEGATIVE; URINE BENZODIAZEPINES SCREEN NEGATIVE; URINE COCAINE SCREEN NEGATIVE; URINE MARIJUANA (THC) SCREEN NEGATIVE; URINE METHADONE SCREEN NEGATIVE; URINE PHENCYCLIDINE SCREEN NEGATIVE
[2018-02-02 00:30] VITALS: BP 111/79
== END 2018-02-02 00:15 | disposition home or self-care (01) ==
LOC: ER 16:25
DX: R41.82 Altered mental status, unspecified (principal); F17.210 Nicotine dependence, cigarettes, uncomplicated
CPT/HCPCS: 96376; 99406; 99284; 96361; 51701; 96374; 36415; 85025; 80053; 80307; J2060; J7030

== ENCOUNTER 2018-03-15 22:38 | Emergency (ER) | payer SELFPAY ==
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
[2018-03-16 00:15] LABS: ABSOLUTE LYMPHOCYTES (AUTO) 1.7 10^3/uL (0.5-4.7); ABSOLUTE MONOCYTES (AUTO) 0.6 10^3/uL (0.1-1.4); ABSOLUTE NEUT (AUTO) 3.5 10^3/uL (1.7-8.2); BASOPHILS % (AUTO) 0.6 % (0-2); EOSINOPHILS % (AUTO) 0.1 % (0-6); HEMATOCRIT 36.7 % (36.0-47.0); HEMOGLOBIN 12.3 g/dL (12.0-15.5); LYMPHOCYTES % (AUTO) 28.1 % (13-45); MEAN CORPUSCULAR HEMOGLOBIN 26.7 pg (27.0-33.4); MEAN CORPUSCULAR HGB CONC 33.7 g/dL (32.0-36.0); MEAN CORPUSCULAR VOLUME 79 fl (80-97); MONOCYTES % (AUTO) 10.9 % (3-13); PLATELET COUNT 361 10^3/uL (150-450); RED BLOOD COUNT 4.62 10^6/uL (3.72-5.28); RED CELL DISTRIBUTION WIDTH 14.6 % (11.5-14.0); SEGMENTED NEUTROPHILS % (AUTO) 60.3 % (42-78); TOTAL CELLS COUNTED % (AUTO) 100 %; WHITE BLOOD COUNT 5.9 10^3/uL (4.0-10.5)
[2018-03-16 00:26] LABS: ALANINE AMINOTRANSFERASE 16 U/L (9-52); ALBUMIN 4.8 g/dL (3.5-5.0); ALKALINE PHOSPHATASE 84 U/L (38-126); ANION GAP 16 (5-19); ASPARTATE AMINO TRANSFERASE 21 U/L (14-36); BILIRUBIN,DIRECT 0.3 mg/dL (0.0-0.4); BILIRUBIN,TOTAL 0.8 mg/dL (0.2-1.3); BLOOD UREA NITROGEN 11 mg/dL (7-20); CALCIUM 10.4 mg/dL (8.4-10.2); CARBON DIOXIDE 16 mmol/L (22-30); CHLORIDE 106 mmol/L (98-107); GLUCOSE 96 mg/dL (75-110); POTASSIUM 3.7 mmol/L (3.6-5.0); SODIUM 137.7 mmol/L (137-145); TOTAL PROTEIN 8.7 g/dL (6.3-8.2)
[2018-03-16 00:34] LABS: ACETAMINOPHEN < 10 ug/mL (10-30); ALCOHOL < 10 mg/dL (NONE DETECTED); SALICYLATE < 1.0 mg/dL (2.0-20.0)
[2018-03-16 00:44] LABS: APPEARANCE,URINE SLIGHTLY-CLOUDY; BILIRUBIN,URINE NEGATIVE (NEGATIVE); COLOR,URINE YELLOW; GLUCOSE, URINE NEGATIVE (NEGATIVE); KETONES,URINE 80 mg/dL (NEGATIVE); LEUKOCYTE ESTERASE,URINE NEGATIVE (NEGATIVE); NITRITE,URINE NEGATIVE (NEGATIVE); PROTEIN,URINE NEGATIVE (NEGATIVE); URINE SPECIFIC GRAVITY 1.011; UROBILINOGEN,URINE NEGATIVE mg/dL (<2.0)
[2018-03-16 00:58] LABS: URINE BARBITURATES SCREEN NEGATIVE; URINE BENZODIAZEPINES SCREEN NEGATIVE; URINE COCAINE SCREEN NEGATIVE; URINE MARIJUANA (THC) SCREEN NEGATIVE; URINE METHADONE SCREEN NEGATIVE; URINE PHENCYCLIDINE SCREEN NEGATIVE
[2018-03-16] MEDS ORDERED: LORAZEPAM INJ 2 MG/1 ML VIAL IV ONE (01:55)
[2018-03-16] MEDS ORDERED: NORMAL SALINE 1000 ML 1,000 ML IV ONE ×2 (01:55)
[2018-03-16 05:34] VITALS: BP 141/90
--- NOTE | 2018-03-16 07:34 | EKG REPORT ---
SEVERITY:- NORMAL ECG - SINUS RHYTHM : Confirmed by: Patrick Gilliam MD 16-Mar-2018 07:34:23
== END 2018-03-16 05:34 | disposition home or self-care (01) ==
LOC: ER 22:38
DX: F15.10 Other stimulant abuse, uncomplicated (principal); X99.8XXA Assault by other sharp object, initial encounter; Y08.89XA Assault by other specified means, initial encounter; R00.0 Tachycardia, unspecified
CPT/HCPCS: 93005; 99284; 96361; 96374; 36415; 80307 ×4; 84703; 85025; 80053; 81001; 93010; J2060; J7030

== ENCOUNTER 2018-03-16 07:59 | Emergency (ER) | payer SELFPAY ==
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
[2018-03-16] MEDS ORDERED: HYDROXYZINE PAMOATE 50 MG CAPSULE PO ONE (09:00)
[2018-03-16 11:12] LABS: ABSOLUTE MONOCYTES (AUTO) 0.7 10^3/uL (0.1-1.4); ABSOLUTE NEUT (AUTO) 4.2 10^3/uL (1.7-8.2); BASOPHILS % (AUTO) 0.6 % (0-2); EOSINOPHILS % (AUTO) 0.2 % (0-6); HEMATOCRIT 37.2 % (36.0-47.0); HEMOGLOBIN 12.7 g/dL (12.0-15.5); LYMPHOCYTES % (AUTO) 29.3 % (13-45); MEAN CORPUSCULAR HEMOGLOBIN 27.4 pg (27.0-33.4); MEAN CORPUSCULAR VOLUME 81 fl (80-97); MONOCYTES % (AUTO) 9.5 % (3-13); PLATELET COUNT 375 10^3/uL (150-450); RED BLOOD COUNT 4.62 10^6/uL (3.72-5.28); RED CELL DISTRIBUTION WIDTH 14.5 % (11.5-14.0); SEGMENTED NEUTROPHILS % (AUTO) 60.4 % (42-78); TOTAL CELLS COUNTED % (AUTO) 100 %; WHITE BLOOD COUNT 6.9 10^3/uL (4.0-10.5)
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
[2018-03-16 11:27] LABS: ALANINE AMINOTRANSFERASE 16 U/L (9-52); ALKALINE PHOSPHATASE 86 U/L (38-126); ANION GAP 19 (5-19); ASPARTATE AMINO TRANSFERASE 25 U/L (14-36); BILIRUBIN,DIRECT 0.3 mg/dL (0.0-0.4); BILIRUBIN,TOTAL 1.2 mg/dL (0.2-1.3); BLOOD UREA NITROGEN 8 mg/dL (7-20); CALCIUM 10.3 mg/dL (8.4-10.2); CARBON DIOXIDE 13 mmol/L (22-30); CHLORIDE 109 mmol/L (98-107); GLUCOSE 89 mg/dL (75-110); POTASSIUM 3.9 mmol/L (3.6-5.0); SODIUM 141.4 mmol/L (137-145); TOTAL PROTEIN 9.1 g/dL (6.3-8.2)
[2018-03-16 11:28] LABS: ACETAMINOPHEN < 10 ug/mL (10-30); ALCOHOL < 10 mg/dL (NONE DETECTED); SALICYLATE < 1.0 mg/dL (2.0-20.0)
[2018-03-16 11:38] LABS: APPEARANCE,URINE SLIGHTLY-CLOUDY; BILIRUBIN,URINE NEGATIVE (NEGATIVE); COLOR,URINE STRAW; GLUCOSE, URINE NEGATIVE (NEGATIVE); KETONES,URINE 20 mg/dL (NEGATIVE); LEUKOCYTE ESTERASE,URINE NEGATIVE (NEGATIVE); NITRITE,URINE NEGATIVE (NEGATIVE); PROTEIN,URINE NEGATIVE (NEGATIVE); URINE SPECIFIC GRAVITY 1.005; UROBILINOGEN,URINE NEGATIVE mg/dL (<2.0)
[2018-03-16 11:54] LABS: URINE BARBITURATES SCREEN NEGATIVE; URINE BENZODIAZEPINES SCREEN NEGATIVE; URINE COCAINE SCREEN NEGATIVE; URINE MARIJUANA (THC) SCREEN NEGATIVE; URINE METHADONE SCREEN NEGATIVE; URINE PHENCYCLIDINE SCREEN NEGATIVE
--- NOTE | 2018-03-16 13:56 | EKG REPORT ---
SEVERITY:- ABNORMAL ECG - SINUS RHYTHM PROBABLE LEFT VENTRICULAR HYPERTROPHY : Confirmed by: Patrick Gilliam MD 16-Mar-2018 13:55:26
[2018-03-16 16:01] VITALS: BP 129/78
== END 2018-03-16 16:45 | disposition home or self-care (01) ==
LOC: ER 07:59
DX: F15.10 Other stimulant abuse, uncomplicated (principal); F17.200 Nicotine dependence, unspecified, uncomplicated
CPT/HCPCS: 36415; 80053; 80307; 81001; 84703; 85025; 93005; 93010; 99285

== ENCOUNTER 2018-03-23 16:56 | Emergency (ER) | payer SELFPAY ==
[2018-03-23] MEDS ORDERED: NORMAL SALINE 1000 ML 1,000 ML IV PRN (17:28)
--- NOTE | 2018-03-23 18:28 | EKG REPORT ---
SEVERITY:- OTHERWISE NORMAL ECG - SINUS TACHYCARDIA : Confirmed by: Nader Osorio 23-Mar-2018 18:27:58
[2018-03-23 18:40] LABS: ABSOLUTE LYMPHOCYTES (AUTO) 2.2 10^3/uL (0.5-4.7); ABSOLUTE MONOCYTES (AUTO) 1.1 10^3/uL (0.1-1.4); ABSOLUTE NEUT (AUTO) 4.6 10^3/uL (1.7-8.2); BASOPHILS % (AUTO) 0.5 % (0-2); HEMATOCRIT 36.9 % (36.0-47.0); HEMOGLOBIN 12.8 g/dL (12.0-15.5); LYMPHOCYTES % (AUTO) 27.5 % (13-45); MEAN CORPUSCULAR HEMOGLOBIN 27.7 pg (27.0-33.4); MEAN CORPUSCULAR HGB CONC 34.7 g/dL (32.0-36.0); MEAN CORPUSCULAR VOLUME 80 fl (80-97); MONOCYTES % (AUTO) 13.8 % (3-13); PLATELET COUNT 367 10^3/uL (150-450); RED BLOOD COUNT 4.63 10^6/uL (3.72-5.28); RED CELL DISTRIBUTION WIDTH 14.4 % (11.5-14.0); SEGMENTED NEUTROPHILS % (AUTO) 58.2 % (42-78); TOTAL CELLS COUNTED % (AUTO) 100 %
[2018-03-23 18:53] LABS: ALANINE AMINOTRANSFERASE 17 U/L (9-52); ALBUMIN 5.2 g/dL (3.5-5.0); ALKALINE PHOSPHATASE 89 U/L (38-126); ANION GAP 18 (5-19); ASPARTATE AMINO TRANSFERASE 25 U/L (14-36); BILIRUBIN,DIRECT 0.4 mg/dL (0.0-0.4); BILIRUBIN,TOTAL 1.3 mg/dL (0.2-1.3); BLOOD UREA NITROGEN 13 mg/dL (7-20); CALCIUM 10.8 mg/dL (8.4-10.2); CARBON DIOXIDE 16 mmol/L (22-30); CHLORIDE 106 mmol/L (98-107); GLUCOSE 101 mg/dL (75-110); POTASSIUM 3.5 mmol/L (3.6-5.0); SODIUM 139.9 mmol/L (137-145); TOTAL PROTEIN 9.3 g/dL (6.3-8.2)
[2018-03-23 18:54] LABS: ACETAMINOPHEN < 10 ug/mL (10-30); ALCOHOL < 10 mg/dL (NONE DETECTED); SALICYLATE < 1.0 mg/dL (2.0-20.0)
[2018-03-23 19:08] LABS: APPEARANCE,URINE CLOUDY; BILIRUBIN,URINE NEGATIVE (NEGATIVE); COLOR,URINE YELLOW; GLUCOSE, URINE NEGATIVE (NEGATIVE); KETONES,URINE 20 mg/dL (NEGATIVE); LEUKOCYTE ESTERASE,URINE TRACE (NEGATIVE); NITRITE,URINE NEGATIVE (NEGATIVE); PROTEIN,URINE 100 mg/dL (NEGATIVE); URINE SPECIFIC GRAVITY 1.025
[2018-03-23] MEDS ORDERED: RINGERS SOLUTION,LACTATED 1,000 ML IV ONE (19:17)
[2018-03-23 19:18] LABS: URINE BARBITURATES SCREEN NEGATIVE; URINE BENZODIAZEPINES SCREEN NEGATIVE; URINE COCAINE SCREEN NEGATIVE; URINE MARIJUANA (THC) SCREEN NEGATIVE; URINE METHADONE SCREEN NEGATIVE; URINE PHENCYCLIDINE SCREEN NEGATIVE
[2018-03-23 19:41] VITALS: BP 122/88
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
== END 2018-03-23 19:59 | disposition home or self-care (01) ==
LOC: ER 16:56
DX: F15.10 Other stimulant abuse, uncomplicated (principal)
CPT/HCPCS: 36415; 80053; 80307; 81001; 82550; 84703; 85025; 93005; 93010; 96360; 99284

== ENCOUNTER 2018-03-24 21:33 | Emergency (ER) | payer SELFPAY ==
[2018-03-24 21:41] VITALS: BP 145/78
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
[2018-03-24] MEDS ORDERED: LORAZEPAM 0.5 MG TABLET PO ONE (22:12)
== END 2018-03-24 22:50 | disposition home or self-care (01) ==
LOC: ER 21:33
DX: F41.0 Panic disorder [episodic paroxysmal anxiety] (principal); F41.9 Anxiety disorder, unspecified; R06.4 Hyperventilation; F17.210 Nicotine dependence, cigarettes, uncomplicated; R03.0 Elevated blood-pressure reading, without diagnosis of hypertension
CPT/HCPCS: 99284

== ENCOUNTER 2018-04-13 21:21 | Emergency (ER) | payer SELFPAY ==
--- NOTE | 2018-04-13 21:39 | ER Document Report ---
ED General - General Chief Complaint: Accidental Overdose Stated Complaint: POSSIBLE OVERDOSE Time Seen by Provider: 04/13/18 21:26 Notes: Patient is a 23-year-old female that presents to the emergency department for chief complaint of shaking after methamphetamine use. Patient states that earlier today she injected methamphetamines, around noon or 1:00 and she started having shaking symptoms, and overall did not feel well, and had been ongoing throughout the evening so she decided to call EMS to bring her to the emergency department. She states that she only uses methamphetamines on and off , and occasionally uses too much and results in the symptoms. She denies noting any chest pain, shortness of breath, difficulty breathing, nausea or vomiting. Patient reports that she is not . Past Medical History: Endometriosis Past Surgical History: Laparoscopy Social History: Denies tobacco or alcohol use, admits to methamphetamine use Family History: Reviewed and noncontributory for presenting illness Allergies: Reviewed, see documented allergy list. REVIEW OF SYSTEMS: Unless otherwise stated in this report the patient's positive and negative responses for review of systems for constitutional, eyes, ENT, cardiovascular, respiratory, gastrointestinal, neurological, genitourinary, musculoskeletal, and integumentary systems and related systems to the presenting problem are either as stated in the HPI or were not pertinent or were negative for the symptoms and/or complaints related to the presenting medical problem. PHYSICAL EXAMINATION: Vital signs reviewed, nursing noted reviewed. GENERAL: Well-appearing, well-nourished and in no acute distress. HEAD: Atraumatic, normocephalic. EYES: Eyes appear normal, extraocular movements intact, sclera anicteric, conjunctiva are normal. ENT: nares patent, oropharynx clear without exudates. Moist mucous membranes. NECK: Normal range of motion, supple without lymphadenopathy LUNGS: Breath sounds clear to auscultation bilaterally and equal. No wheezes rales or rhonchi. HEART: Heart rate tachycardic, regular rhythm ABDOMEN: Soft, nontender, normoactive bowel sounds. No rebound, guarding, or rigidity. No masses appreciated. EXTREMITIES: Nontender, good range of motion, no pitting or edema. NEUROLOGICAL: Resting tremor, but no focal neurological deficits. Moves all extremities spontaneously Motor and sensory grossly intact on exam. PSYCH: Normal mood, normal affect. SKIN: Warm, Dry, normal turgor, no rashes or lesions noted on exposed skin TRAVEL OUTSIDE OF THE [place] IN LAST 30 DAYS: No - Related Data Allergies/Adverse Reactions: No Known Allergies Allergy (Verified 04/13/18 21:30) Past Medical History - Social History Smoking Status: Current Every Day Smoker Chew tobacco use (# tins/day): No Drug Abuse: Methamphetamine Family History: None, Arthritis, CAD, CVA, DM, Hyperlipidemia, Hypertension, Malignancy, Thyroid Disfunction Patient has suicidal ideation: No Patient has homicidal ideation: No Renal/ Medical History: Reports: Hx Ovarian Cysts, Hx Pelvic Inflammatory Disease - States she's had GC chlamydia and genital herpes. Denies: Hx Peritoneal Dialysis Psychiatric Medical History: Reports: Hx Attention Deficit Hyperactivity Disorder, Hx Bipolar Disorder, Hx Depression Past Surgical History: Reports: Hx Gynecologic Surgery - Exploratory surgery for endometriosis, stretching the cervic due to stenosi - Immunizations Hx Diphtheria, Pertussis, Tetanus Vaccination: No Physical Exam - Vital signs Vitals: Temp Resp BP Pulse Ox 98.2 F 31 H 117/85 100 04/13/18 21:30 04/13/18 21:30 04/13/18 21:30 04/13/18 21:30 Course - Re-evaluation Re-evalutation: Patient seen and examined vital signs reviewed. Patient was evaluated and treated as appropriate for the patient's presenting symptoms and complaint, with consideration of any critical or life threatening conditions that may be associated with their obtained history and exam as noted above. Patient was treated with IV fluids, and IV Ativan The patient was re-evaluated and was improved, heart rate down to the mid 80s from the 120s, and tremor resolved Evaluation was most consistent with adverse reaction from IV methamphetamine use Plan of care was discussed with the patient at this point, after careful consideration I feel that that patient can be discharged from the emergency department, the patient was educated treatments and reasons to return to the emergency department based on their presumed diagnosis as noted above, they were advised to followup with a primary care physician in 2-3 days. Patient was agreeable to plan of care. *Note is created using voice recognition software and may contain spelling, syntax or grammatical errors. - Vital Signs Vital signs: Temp Pulse Resp BP Pulse Ox 98.2 F 24 H 130/84 H 100 04/13/18 21:30 04/13/18 22:01 04/13/18 22:01 04/13/18 22:01 - EKG Interpretation by Me Additional EKG results interpreted by me: EKG demonstrates sinus tachycardia with a ventricular rate of 101 bpm, normal axis, QTC 477 ms, no evidence of acute ischemia on this EKG, no prior for comparison. Discharge - Discharge Clinical Impression: Methamphetamine abuse Condition: Stable Disposition: HOME, SELF-CARE Instructions: Overdose ([facility]) Additional Instructions: Please avoid any further illicit drug use, including methamphetamines, in the future to avoid these complications. Referrals: [facility] [Provider Group] - Follow up tomorrow
[2018-04-13] MEDS ORDERED: NORMAL SALINE 1000 ML 1,000 ML IV ONE (21:44)
[2018-04-13] MEDS ORDERED: LORAZEPAM INJ 2 MG/1 ML VIAL IV ONE (21:44)
[2018-04-13 22:59] VITALS: BP 129/88
--- NOTE | 2018-04-14 08:56 | EKG REPORT ---
SEVERITY:- BORDERLINE ECG - SINUS TACHYCARDIA BORDERLINE PROLONGED QT INTERVAL : Confirmed by: Nader Osorio 14-Apr-2018 08:55:41
== END 2018-04-13 22:59 | disposition home or self-care (01) ==
LOC: ER 21:21
DX: F15.10 Other stimulant abuse, uncomplicated (principal); R25.1 Tremor, unspecified
CPT/HCPCS: 93005; 99284; 96361; 96374; 93010; J2060

== ENCOUNTER 2018-04-22 13:55 | Emergency (ER) | payer SELFPAY ==
--- NOTE | 2018-04-22 14:18 | ER Document Report ---
ED Medical Screen (RME) - General Chief Complaint: Suicidal Ideation Stated Complaint: SUICIDAL IDEATION Time Seen by Provider: 04/22/18 14:15 Mode of Arrival: Ambulatory Information source: Patient TRAVEL OUTSIDE OF THE [place] IN LAST 30 DAYS: No - HPI Patient complains to provider of: SI Onset: Yesterday - pt. has h/o depression and has some thoughts about hurting herself today. Used meth earlier this am. - Related Data Allergies/Adverse Reactions: No Known Allergies Allergy (Verified 04/22/18 13:56) Past Medical History Renal/ Medical History: Reports: Hx Ovarian Cysts, Hx Pelvic Inflammatory Disease - States she's had GC chlamydia and genital herpes. Denies: Hx Peritoneal Dialysis Psychiatric Medical History: Reports: Hx Attention Deficit Hyperactivity Disorder, Hx Bipolar Disorder, Hx Depression Past Surgical History: Reports: Hx Gynecologic Surgery - Exploratory surgery for endometriosis, stretching the cervic due to stenosi - Immunizations Hx Diphtheria, Pertussis, Tetanus Vaccination: No Physical Exam - Vital signs Vitals: Temp Pulse Resp BP Pulse Ox 97.3 F 86 16 122/83 100 04/22/18 14:05 04/22/18 14:05 04/22/18 14:05 04/22/18 14:05 04/22/18 14:05 Course - Vital Signs Vital signs: Temp Pulse Resp BP Pulse Ox 97.3 F 86 16 122/83 100 04/22/18 14:05 04/22/18 14:05 04/22/18 14:05 04/22/18 14:05 04/22/18 14:05
[2018-04-22 16:08] LABS: ABSOLUTE BASOPHILS # (AUTO) 0.1 10^3/uL (0.0-0.2); ABSOLUTE EOSINOPHILS # (AUTO) 0.1 10^3/uL (0.0-0.6); ABSOLUTE LYMPHOCYTES (AUTO) 2.3 10^3/uL (0.5-4.7); ABSOLUTE MONOCYTES (AUTO) 0.7 10^3/uL (0.1-1.4); ABSOLUTE NEUT (AUTO) 2.7 10^3/uL (1.7-8.2); BASOPHILS % (AUTO) 1.2 % (0-2); EOSINOPHILS % (AUTO) 1.7 % (0-6); HEMOGLOBIN 12.3 g/dL (12.0-15.5); LYMPHOCYTES % (AUTO) 39.4 % (13-45); MEAN CORPUSCULAR HEMOGLOBIN 27.5 pg (27.0-33.4); MEAN CORPUSCULAR HGB CONC 34.2 g/dL (32.0-36.0); MEAN CORPUSCULAR VOLUME 80 fl (80-97); MONOCYTES % (AUTO) 11.3 % (3-13); PLATELET COUNT 334 10^3/uL (150-450); RED BLOOD COUNT 4.48 10^6/uL (3.72-5.28); RED CELL DISTRIBUTION WIDTH 14.9 % (11.5-14.0); SEGMENTED NEUTROPHILS % (AUTO) 46.4 % (42-78); TOTAL CELLS COUNTED % (AUTO) 100 %; WHITE BLOOD COUNT 5.9 10^3/uL (4.0-10.5)
[2018-04-22 16:15] LABS: APPEARANCE,URINE SLIGHTLY-CLOUDY; BILIRUBIN,URINE NEGATIVE (NEGATIVE); COLOR,URINE STRAW; GLUCOSE, URINE NEGATIVE (NEGATIVE); KETONES,URINE NEGATIVE (NEGATIVE); LEUKOCYTE ESTERASE,URINE NEGATIVE (NEGATIVE); NITRITE,URINE NEGATIVE (NEGATIVE); PROTEIN,URINE NEGATIVE (NEGATIVE); URINE SPECIFIC GRAVITY 1.011; UROBILINOGEN,URINE NEGATIVE mg/dL (<2.0)
[2018-04-22 16:25] LABS: ALANINE AMINOTRANSFERASE 19 U/L (9-52); ALBUMIN 4.7 g/dL (3.5-5.0); ALKALINE PHOSPHATASE 78 U/L (38-126); ANION GAP 12 (5-19); ASPARTATE AMINO TRANSFERASE 22 U/L (14-36); BILIRUBIN,DIRECT 0.3 mg/dL (0.0-0.4); BILIRUBIN,TOTAL 0.6 mg/dL (0.2-1.3); BLOOD UREA NITROGEN 13 mg/dL (7-20); CALCIUM 10.4 mg/dL (8.4-10.2); CARBON DIOXIDE 22 mmol/L (22-30); CHLORIDE 107 mmol/L (98-107); GLUCOSE 89 mg/dL (75-110); SODIUM 140.5 mmol/L (137-145); TOTAL PROTEIN 8.4 g/dL (6.3-8.2)
[2018-04-22 16:28] LABS: ALCOHOL < 10 mg/dL (NONE DETECTED)
[2018-04-22 16:30] LABS: URINE AMPHETAMINES SCREEN UNCONFIRMED POSITIVE; URINE BARBITURATES SCREEN NEGATIVE; URINE BENZODIAZEPINES SCREEN NEGATIVE; URINE COCAINE SCREEN NEGATIVE; URINE MARIJUANA (THC) SCREEN NEGATIVE; URINE METHADONE SCREEN NEGATIVE; URINE PHENCYCLIDINE SCREEN NEGATIVE
--- NOTE | 2018-04-22 16:52 | PSYCHOLOGICAL NOTE ---
Psych Note - Psych Note Psych Note: Reason for Consult: substance abuse, suicidal ideation Patient ambulatory to [facility] with steady gait, patient appears restless and anxious , resp e/u. Patient states she used meth last night and has not slept or ate in 2 days. Patient admits to SI but is vague stating, "I have them thoughts," in reference to her drug use. Patient states she would like to speak to a mental health specialist today. Patient has a mobile crisis employee representative from [facility], who was contacted by the health department when the patient expressed the desire to get clean. Clinician spoke with mobile warehouse production worker, Jaimee, who discloses the patient was at the health department when she disclosed suicidal ideation in connection to her drug use. Patient reports she wants to get clean. Patient requested while seeing attending nurse upon arrival for police to come so she can surrender her meth and needles. She discloses that the plan for continued assistance to the patient would be outpatient substance abuse treatment as the patient does not meet detox requirements. Patient reports that she has depression surrounding her substance abuse. She discloses that when she first takes the drugs she feels really great however when she starts coming down she starts thinking about all the bad things that have happened in her life. She confirms there are times where she feels that she be better off . Patient does not have a plan. Patient reports that she wants help for both her substance abuse and her mental health. She states it has been over 2 years and she has been on any medications. She discloses diagnosis of schizoaffective bipolar type and PTSD. Clinician discussed multiple options with the patient to include residential treatment. Patient reports that residential treatment is too long and she is not interested in that however is interested in intensive outpatient program. Patient agrees that she would like to go to [facility] for both her mental health and her substance abuse treatment. She confirms that [employer] stated they would be assisting [facility] Patient is alert and orientated to person, place, time and circumstance. Mood is euthymic with congruent affect. Patient endorses passive suicidal ideation i.e. no plans means or intent patient denies homicidal ideation. Delusions are absent behaviors congruent with an intact reality based presentation i.e. organized and linear thought process. Eye contact was fair. Conversational speech is within normal rate, tone and prosody. Intellectual abilities appear to be within the average range. Attention and concentration are good. Insight , judgment, impulse control are currently good. 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 Patient does not meet [facility]C criteria per [facility] 120 2C. Patient discloses passive suicidal ideation i.e. no plans means or intent. She discloses wanting to become clean from methamphetamines and has surrendered her drugs and needles to law enforcement. Patient is working with [employer] who will be taking her to [facility] on Wednesday for enrollment into intensive outpatient substance abuse treatment. Patient is requesting assistance and to get back on her medications that she has been off of for 2 years.
--- NOTE | 2018-04-22 16:55 | ER Document Report ---
ED Psych Disorder / Suicide - General Chief Complaint: Suicidal Ideation Stated Complaint: SUICIDAL IDEATION Time Seen by Provider: 04/22/18 14:15 Mode of Arrival: Ambulatory Notes: 23-year-old female, IV drug abuser with drug of choice being methamphetamine to the emergency department complaining of wanting to get off of methamphetamines. Turned in her illegal drugs to the police on arrival here. States that she feels really depressed when she tries to get off of it to the point of being suicidal but denies any suicidal thoughts at this time. TRAVEL OUTSIDE OF THE [place] IN LAST 30 DAYS: No - HPI Patient complains to provider of: Suicidal ideation. No: Suicidal plan, Suicidal attempt, Self injury Onset was: Gradual - Related Data Allergies/Adverse Reactions: No Known Allergies Allergy (Verified 04/22/18 13:56) Past Medical History - General Information source: Patient - Social History Smoking Status: Never Smoker Frequency of alcohol use: None Drug Abuse: Marijuana, Methamphetamine Family History: None, Arthritis, CAD, CVA, DM, Hyperlipidemia, Hypertension, Malignancy, Thyroid Disfunction Patient has suicidal ideation: Yes Patient has homicidal ideation: No Renal/ Medical History: Reports: Hx Ovarian Cysts, Hx Pelvic Inflammatory Disease - States she's had GC chlamydia and genital herpes. Denies: Hx Peritoneal Dialysis Psychiatric Medical History: Reports: Hx Attention Deficit Hyperactivity Disorder, Hx Bipolar Disorder, Hx Depression, Hx Schizophrenia Past Surgical History: Reports: Hx Gynecologic Surgery - Exploratory surgery for endometriosis, stretching the cervic due to stenosi - Immunizations Hx Diphtheria, Pertussis, Tetanus Vaccination: No Review of Systems - Review of Systems Notes: Constitutional: denies: Chills, Diaphoresis, Fever, Malaise, Weakness EENT: denies: Eye discharge, Blurred vision, Tearing, Double vision, Nose congestion, Nose discharge, Throat swelling, Mouth pain Cardiovascular: denies: Palpitations, Heart racing, Orthopnea, Dyspnea, Chest pain Respiratory: denies: Cough, Hurts to breathe, Wheezing, Shortness of breath Gastrointestinal: denies: Abdominal pain, Diarrhea, Nausea, Vomiting, Black stools, bright red blood in stool Genitourinary: denies: Burning, Dysuria, Discharge, Frequency, Flank pain, Hematuria Musculoskeletal: denies: Joint pain, Joint swelling, Muscle pain, Muscle stiffness, back pain Hematologic/Lymphatic: denies: Anemia, Easy bleeding, Easy bruising, Blood clots Neurological/Psychological: denies: Confusion, Dementia, Loss of consciousness. Patient does complain of substance abuse and depression Skin: No lesions, no masses, no skin breakdown, no abscesses Physical Exam - Vital signs Vitals: Temp Pulse Resp BP Pulse Ox 97.3 F 86 16 122/83 100 04/22/18 14:05 04/22/18 14:05 04/22/18 14:05 04/22/18 14:05 04/22/18 14:05 Interpretation: Normal - General General appearance: Appears well, Alert - HEENT Head: Normocephalic, Atraumatic Eyes: Normal Pupils: PERRL - Respiratory Respiratory status: No respiratory distress Chest status: Nontender Breath sounds: Normal Chest palpation: Normal - Cardiovascular Rhythm: Regular Heart sounds: Normal auscultation Murmur: No - Abdominal Inspection: Normal Distension: No distension Bowel sounds: Normal Tenderness: Nontender Organomegaly: No organomegaly - Back Back: Normal, Nontender - Extremities General upper extremity: Normal inspection, Nontender, Normal color, Normal ROM , Normal temperature General lower extremity: Normal inspection, Nontender, Normal color, Normal ROM , Normal temperature, Normal weight bearing. No: Humaira's sign - Neurological Neuro grossly intact: Yes Cognition: Normal Orientation: AAOx4 [place] Coma Scale Eye Opening: Spontaneous [place] Coma Scale Verbal: Oriented [place] Coma Scale Motor: Obeys Commands [place] Coma Scale Total: 15 Speech: Normal Motor strength normal: LUE, RUE, LLE, RLE Sensory: Normal - Psychological Associated symptoms: Normal affect, Normal mood - Skin Skin Temperature: Warm Skin Moisture: Dry Skin Color: Normal Course - Re-evaluation Re-evalutation: 04/22/18 18:50 Laboratory 04/22/18 04/22/18 04/22/18 15:38 15:38 15:38 WBC 5.9 RBC 4.48 Hgb 12.3 Hct 36.0 MCV 80 MCH 27.5 MCHC 34.2 RDW 14.9 H Plt Count 334 Seg Neutrophils % 46.4 Lymphocytes % 39.4 Monocytes % 11.3 Eosinophils % 1.7 Basophils % 1.2 Absolute Neutrophils 2.7 Absolute Lymphocytes 2.3 Absolute Monocytes 0.7 Absolute Eosinophils 0.1 Absolute Basophils 0.1 Sodium 140.5 Potassium 4.0 Chloride 107 Carbon Dioxide 22 Anion Gap 12 BUN 13 Creatinine 0.76 Est GFR ( Amer) > 60 Est GFR (Non-Af Amer) > 60 Glucose 89 Calcium 10.4 H Total Bilirubin 0.6 Direct Bilirubin 0.3 Neonat Total Bilirubin Not Reportable Neonat Direct Bilirubin Not Reportable Neonat Indirect Bili Not Reportable AST 22 ALT 19 Alkaline Phosphatase 78 Total Protein 8.4 H Albumin 4.7 Urine Color STRAW Urine Appearance SLIGHTLY-CLOUDY Urine pH 8.0 Ur Specific [place] 1.011 Urine Protein NEGATIVE Urine Glucose (UA) NEGATIVE Urine Ketones NEGATIVE Urine Blood NEGATIVE Urine Nitrite NEGATIVE Urine Bilirubin NEGATIVE Urine Urobilinogen NEGATIVE Ur Leukocyte Esterase NEGATIVE Urine WBC (Auto) 0 Urine RBC (Auto) 1 Urine Bacteria (Auto) TRACE Squamous Epi Cells Auto 5 Urine Mucus (Auto) RARE Urine Ascorbic Acid NEGATIVE Urine HCG, Qual NEGATIVE Urine Opiates Screen Urine Methadone Screen Ur Barbiturates Screen Ur Phencyclidine Scrn Ur Amphetamines Screen U Benzodiazepines Scrn Urine Cocaine Screen U Marijuana (THC) Screen Serum Alcohol < 10 04/22/18 15:38 WBC RBC Hgb Hct MCV MCH MCHC RDW Plt Count Seg Neutrophils % Lymphocytes % Monocytes % Eosinophils % Basophils % Absolute Neutrophils Absolute Lymphocytes Absolute Monocytes Absolute Eosinophils Absolute Basophils Sodium Potassium Chloride Carbon Dioxide Anion Gap BUN Creatinine Est GFR ( Amer) Est GFR (Non-Af Amer) Glucose Calcium Total Bilirubin Direct Bilirubin Neonat Total Bilirubin Neonat Direct Bilirubin Neonat Indirect Bili AST ALT Alkaline Phosphatase Total Protein Albumin Urine Color Urine Appearance Urine pH Ur Specific [place] Urine Protein Urine Glucose (UA) Urine Ketones Urine Blood Urine Nitrite Urine Bilirubin Urine Urobilinogen Ur Leukocyte Esterase Urine WBC (Auto) Urine RBC (Auto) Urine Bacteria (Auto) Squamous Epi Cells Auto Urine Mucus (Auto) Urine Ascorbic Acid Urine HCG, Qual Urine Opiates Screen NEGATIVE Urine Methadone Screen NEGATIVE Ur Barbiturates Screen NEGATIVE Ur Phencyclidine Scrn NEGATIVE Ur Amphetamines Screen UNCONFIRMED POSITIVE U Benzodiazepines Scrn NEGATIVE Urine Cocaine Screen NEGATIVE U Marijuana (THC) Screen NEGATIVE Serum Alcohol Mental health is seen. Please see mental health recommendations. We will start her on some BuSpar, Zyprexa and an initial dose of Ativan. I do not feel patient is a harm to herself. Giving her resources at this time. I am comfortable at this time discharging in stable condition. - Vital Signs Vital signs: Temp Pulse Resp BP Pulse Ox 97.3 F 86 16 122/83 100 10/12/18 14:05 04/22/18 14:05 04/22/18 14:05 04/22/18 14:05 04/22/18 14:05 - Laboratory Result Diagrams: 04/22/18 15:38 04/22/18 15:38 Laboratory results interpreted by me: 04/22/18 04/22/18 15:38 15:38 RDW 14.9 H Calcium 10.4 H Total Protein 8.4 H Discharge - Discharge Clinical Impression: Methamphetamine abuse Condition: Good Disposition: HOME, SELF-CARE Instructions: Depression (OM), Drug Effects (OM) Prescriptions: Olanzapine [Zyprexa 5 mg Tablet] 5 mg PO Q12 #60 tablet Referrals: [facility] [Provider Group] - 04/25/18 8:00 am
[2018-04-22] MEDS ORDERED: LORAZEPAM 1 MG TABLET PO ONE (17:07)
[2018-04-22] MEDS ORDERED: BUSPIRONE HCL 10 MG TABLET PO ONE (17:07)
[2018-04-22] MEDS ORDERED: BENZTROPINE MESYLATE 1 MG TABLET PO ONE (17:44)
[2018-04-22] MEDS ORDERED: OLANZAPINE 5 MG TABLET PO ONE (17:44)
[2018-04-22 19:14] VITALS: BP 116/76
== END 2018-04-22 19:14 | disposition home or self-care (01) ==
LOC: ER 13:55
DX: F15.10 Other stimulant abuse, uncomplicated (principal); F12.10 Cannabis abuse, uncomplicated; F32.9 Major depressive disorder, single episode, unspecified; R45.851 Suicidal ideations
CPT/HCPCS: 36415; 80053; 80307; 81001; 81025; 85025; 99285

== ENCOUNTER 2018-07-03 08:33 | Emergency (ER) | payer SELFPAY ==
[2018-07-03 08:40] VITALS: BP 121/74
[2018-07-03 09:15] LABS: BACTERIA (WET MOUNT) 3+ BACTERIA SEEN; EPITHELIALS (WET MOUNT) 3+ EPITHELIALS SEEN; RBCS (WET MOUNT) FEW RBCS SEEN; T.VAGINALIS (WET MOUNT) NO TRICHOMONAS SEEN; WBCS (WET MOUNT) 1+ WBCS SEEN; YEAST (WET MOUNT) NO YEAST SEEN
[2018-07-03 09:17] LABS: APPEARANCE,URINE SLIGHTLY-CLOUDY; BILIRUBIN,URINE NEGATIVE (NEGATIVE); COLOR,URINE YELLOW; GLUCOSE, URINE NEGATIVE (NEGATIVE); KETONES,URINE 20 mg/dL (NEGATIVE); LEUKOCYTE ESTERASE,URINE NEGATIVE (NEGATIVE); NITRITE,URINE NEGATIVE (NEGATIVE); PROTEIN,URINE NEGATIVE (NEGATIVE); URINE SPECIFIC GRAVITY 1.021
[2018-07-03] MEDS ORDERED: LIDOCAINE 1% INJ-PF (10 MG/ML) 30 ML SDV INJ ONE (10:06)
[2018-07-03] MEDS ORDERED: CEFTRIAXONE INJ 250 MG VIAL IM ONE (10:06)
[2018-07-03] MEDS ORDERED: AZITHROMYCIN 250 MG TABLET PO ONE (10:06)
--- NOTE | 2018-07-03 10:13 | ER Document Report ---
ED GI/ - General Chief Complaint: OB Problem (<20wks) Stated Complaint: POSSIBLE Time Seen by Provider: 07/03/18 08:49 Mode of Arrival: Ambulatory Information source: Patient Notes: 23-year-old female presented to ED for complaint of needing to know if she is . States her last menstrual period was 06/09 and she took a test and it was negative but she feels . Patient states she also has a history of genital herpes but does not have any rash at this time. She states she also has pelvic pain I would like to be tested for STDs because she was positive in April. Patient is alert and oriented respirations regular and unlabored speaking in full sentences walks with a even steady gait. TRAVEL OUTSIDE OF THE [place] IN LAST 30 DAYS: No - HPI Patient complains to provider of: Other Onset: Other - See HPI pelvic pain for couple weeks Timing/Duration: Intermittent Quality of pain: Achy Severity at maximum: Severe Severity in ED: Severe Pain Level: 5 Location: Pelvis Vaginal bleeding (Compared to normal period): None Associated symptoms: Other - Pain Exacerbated by: Denies Relieved by: Denies Similar symptoms previously: Yes Recently seen / treated by doctor: No - Related Data Allergies/Adverse Reactions: No Known Allergies Allergy (Verified 04/22/18 13:56) Past Medical History - General Information source: Patient - Social History Smoking Status: Never Smoker Chew tobacco use (# tins/day): No Frequency of alcohol use: None Drug Abuse: Marijuana Lives with: Family Family History: None, Arthritis, CAD, CVA, DM, Hyperlipidemia, Hypertension, Malignancy, Thyroid Disfunction Patient has suicidal ideation: No Patient has homicidal ideation: No - Past Medical History Cardiac Medical History: Reports: None Pulmonary Medical History: Reports: None EENT Medical History: Reports: None Neurological Medical History: Reports: None Endocrine Medical History: Reports: None Renal/ Medical History: Reports: Hx Ovarian Cysts, Hx Pelvic Inflammatory Disease - States she's had GC chlamydia and genital herpes Malignancy Medical History: Reports: None GI Medical History: Reports: None Musculoskeletal Medical History: Reports None Skin Medical History: Reports None Psychiatric Medical History: Reports: Hx Attention Deficit Hyperactivity Disorder, Hx Bipolar Disorder, Hx Depression, Hx Schizophrenia Traumatic Medical History: Reports: None Infectious Medical History: Reports: None Past Surgical History: Reports: Hx Gynecologic Surgery - Exploratory surgery for endometriosis, stretching the cervic due to stenosi - Immunizations Hx Diphtheria, Pertussis, Tetanus Vaccination: No Review of Systems - Review of Systems Constitutional: No symptoms reported EENT: No symptoms reported Cardiovascular: No symptoms reported Respiratory: No symptoms reported Gastrointestinal: No symptoms reported Genitourinary: No symptoms reported Female Genitourinary: Other - pelvic pain body aches Musculoskeletal: No symptoms reported Skin: No symptoms reported Hematologic/Lymphatic: No symptoms reported Neurological/Psychological: No symptoms reported Physical Exam - Vital signs Vitals: Temp Pulse Resp BP Pulse Ox 98.7 F 88 18 121/74 100 07/03/18 08:39 07/03/18 08:39 07/03/18 08:39 07/03/18 08:39 07/03/18 08:39 Interpretation: Normal - General General appearance: Appears well, Alert - HEENT Head: Normocephalic, Atraumatic Eyes: Normal Pupils: PERRL - Respiratory Respiratory status: No respiratory distress Chest status: Nontender Breath sounds: Normal Chest palpation: Normal - Cardiovascular Rhythm: Regular Heart sounds: Normal auscultation Murmur: No - Abdominal Inspection: Normal Distension: No distension Bowel sounds: Normal Tenderness: Nontender Organomegaly: No organomegaly - Genitourinary External exam: Normal Speculum exam: Normal Vaginal bleeding: None Bimanuel exam: Normal - Back Back: Normal, Nontender - Extremities General upper extremity: Normal inspection, Nontender, Normal color, Normal ROM, Normal temperature General lower extremity: Normal inspection, Nontender, Normal color, Normal ROM, Normal temperature, Normal weight bearing. No: Humaira's sign - Neurological Neuro grossly intact: Yes Cognition: Normal Orientation: AAOx4 [place] Coma Scale Eye Opening: Spontaneous [place] Coma Scale Verbal: Oriented [place] Coma Scale Motor: Obeys Commands [place] Coma Scale Total: 15 Speech: Normal Motor strength normal: LUE, RUE, LLE, RLE Sensory: Normal - Psychological Associated symptoms: Normal affect, Normal mood - Skin Skin Temperature: Warm Skin Moisture: Dry Skin Color: Normal Course - Re-evaluation Re-evalutation: 07/03/18 10:19 Discussed lab results with patient. Patient will be discharged home and will follow up in 2 hours for the results of her GC and chlamydia. Because patient was concerned she was treated with Rocephin and azithromycin before being discharged. Patient stated she would call back in 2 hours. - Vital Signs Vital signs: Temp Pulse Resp BP Pulse Ox 98.7 F 88 18 121/74 100 07/03/18 08:39 07/03/18 08:39 07/03/18 08:39 07/03/18 08:39 07/03/18 08:39 - Laboratory Laboratory results interpreted by me: 07/03/18 09:05 Urine Ketones 20 H Urine Urobilinogen 2.0 H Discharge - Discharge Clinical Impression: Pelvic pain, Body aches Condition: Stable Disposition: HOME, SELF-CARE Instructions: Family Physicians / Practices, [facility] [place] Additional Instructions: PELVIC PAIN: There are many causes of pain in the pelvic area. The cause could be the tubes, ovaries, uterus, intestines, appendix, pelvic muscles and connective tissue, or the urinary tract. The cause of your pelvic pain is not clear. However, it seems safe to treat you outside the hospital. If the pain sounds like a temporary problem, we sometimes wait to see if it goes away. Other patients may need additional tests, such as pelvic ultrasound or cultures. Conditions may change. Call us or come back for reexamination if any problems occur, such as: (1) Pain that becomes more severe, steady, or becomes concentrated in one specific area. Also, pain that is more severe with movement or coughing. (2) Vomiting that persists or becomes more frequent. (3) Blood in the vomitus, urine, or bowel movements. Blood in the stool may have a tarry or black appearance. (4) Shaking chills or fever greater than 100 degrees. (5) The abdomen becomes more distended or swollen. (6) Bowel movements cease. (7) Heavy vaginal bleeding. CEPHALOSPORINS: An antibiotic of the cephalosporin class has been prescribed. This type of antibiotic covers a wide variety of infections, including those of the skin, lungs, middle ear, and urinary tract. This antibiotic is somewhat similar to the penicillin family. In rare cases, a person who is allergic to penicillin will also be allergic to this medication. If you have had a severe allergic reaction to penicillin, and have not taken this antibiotic since that time, notify your doctor. Antibiotics which cover many germs ("broad spectrum" antibiotics) are more likely to cause diarrhea or "yeast" infections. Women prone to vaginal yeast problems may suffer an attack after taking this antibiotic. In infants, oral thrush (white spots "stuck" on the cheek) or yeast diaper rash may result. See your doctor if these problems occur. Call the doctor at once if you develop hives, itching, shortness of breath, or lightheadedness. AZITHROMYCIN: Azithromycin (Zithromax) is a broad spectrum antibiotic in the same class as erythromycin. It can treat a variety of bacterial infections, but is most frequently used for respiratory infections. Azithromycin is extremely long-lasting. It accumulates in body tissues and continues to kill bacteria for many days. In order to improve absorption, Azithromycin should be taken at least one hour before or two hours after a meal. It does not have the same strong tendency to upset the stomach as erythromycin and is usually very well tolerated. Patients who have had a rash or other true allergic reactions to erythromycin should not take this medication. Call if you develop gastrointestinal distress, severe diarrhea, rash, hives, itching, or shortness of breath. FOLLOW-UP CARE: If you have been referred to a physician for follow-up care, call the physicians office for an appointment as you were instructed or within the next two days. If you experience worsening or a significant change in your symptoms, notify the physician immediately or return to the Emergency Department at any time for re-evaluation. Please call [phone] in about 2 hours for your results for your GC and chlamydia Referrals: [facility] [Provider Group] - Follow up as needed
[2018-07-03 10:41] LABS: CHLAM PCR NOT DETECTED (NOT DETECT); GON PCR NOT DETECTED (NOT DETECT)
== END 2018-07-03 10:35 | disposition home or self-care (01) ==
LOC: ER 08:33
DX: R10.2 Pelvic and perineal pain (principal); M79.10 Myalgia, unspecified site
CPT/HCPCS: 99284; 96372; 87210; 81025; 81001; 87491; 87591; J3490; J0696

== ENCOUNTER 2018-08-06 19:46 | Emergency (ER) | payer SELFPAY ==
--- NOTE | 2018-08-06 20:21 | ER Document Report ---
ED Medical Screen (RME) - General Chief Complaint: Abdominal Pain Stated Complaint: ABDOMINAL PAIN Time Seen by Provider: 08/06/18 20:14 Notes: 23-year-old female patient who reports her LMP was 07/05/2018, did a test early this morning and it was positive. She is now stressed out and wants to be checked for . She reports a vaginal discharge but no bleeding. She did ride an ambulance to the emergency room, as she frequently does. She does have an extensive psychiatric history. I have greeted and performed a rapid initial assessment of this patient. A comprehensive ED assessment and evaluation of the patient, analysis of test results and completion of the medical decision making process will be conducted by additional ED providers. TRAVEL OUTSIDE OF THE [place] IN LAST 30 DAYS: No - Related Data Allergies/Adverse Reactions: No Known Allergies Allergy (Verified 04/22/18 13:56) Past Medical History Renal/ Medical History: Reports: Hx Ovarian Cysts, Hx Pelvic Inflammatory Disease - States she's had GC chlamydia and genital herpes. Denies: Hx Peritoneal Dialysis Psychiatric Medical History: Reports: Hx Attention Deficit Hyperactivity Disorder, Hx Bipolar Disorder, Hx Depression, Hx Schizophrenia Past Surgical History: Reports: Hx Gynecologic Surgery - Exploratory surgery for endometriosis, stretching the cervic due to stenosi - Immunizations Hx Diphtheria, Pertussis, Tetanus Vaccination: No Physical Exam - Vital signs Vitals: Temp Pulse Resp BP Pulse Ox 98.7 F 89 20 132/74 H 100 08/06/18 19:58 08/06/18 19:58 08/06/18 19:58 08/06/18 19:58 08/06/18 19:58 Course - Vital Signs Vital signs: Temp Pulse Resp BP Pulse Ox 98.7 F 89 20 132/74 H 100 08/06/18 19:58 08/06/18 19:58 08/06/18 19:58 08/06/18 19:58 08/06/18 19:58
--- NOTE | 2018-08-06 22:01 | ER Document Report ---
ED General - General Chief Complaint: Abdominal Pain Stated Complaint: ABDOMINAL PAIN Time Seen by Provider: 08/06/18 20:14 Notes: Patient is a 23-year-old female with a past medical history of multiple psychiatric morbidities who presents complaining that she wants to confirm whether or not she is . Patient does arrive by EMS. She states that she took 2+ tests at home and wanted to confirm whether or not she was actually . States that she is having a "rough night" and that her significant other with whom she is recently broke up with her. She denies any abdominal pain, vaginal bleeding or any symptoms of any kind. TRAVEL OUTSIDE OF THE [place] IN LAST 30 DAYS: No - Related Data Allergies/Adverse Reactions: No Known Allergies Allergy (Verified 08/06/18 20:21) Past Medical History - General Information source: Patient - Social History Smoking Status: Current Every Day Smoker Frequency of alcohol use: None Drug Abuse: Methamphetamine Lives with: Homeless Family History: Arthritis, CAD, CVA, DM, Hyperlipidemia, Hypertension, Malignancy, Thyroid Disfunction Patient has suicidal ideation: No Patient has homicidal ideation: No Renal/ Medical History: Reports: Hx Ovarian Cysts, Hx Pelvic Inflammatory Disease - States she's had GC chlamydia and genital herpes. Denies: Hx Peritoneal Dialysis Psychiatric Medical History: Reports: Hx Attention Deficit Hyperactivity Disorder, Hx Bipolar Disorder, Hx Depression, Hx Schizophrenia Past Surgical History: Reports: Hx Gynecologic Surgery - Exploratory surgery for endometriosis, stretching the cervic due to stenosi - Immunizations Hx Diphtheria, Pertussis, Tetanus Vaccination: No Review of Systems - Review of Systems Notes: Constitutional: Negative for fever. HENT: Negative for sore throat. Eyes: Negative for visual changes. Cardiovascular: Negative for chest pain. Respiratory: Negative for shortness of breath. Gastrointestinal: Negative for abdominal pain, vomiting or diarrhea. Genitourinary: Negative for dysuria. Musculoskeletal: Negative for back pain. Skin: Negative for rash. Neurological: Negative for headaches, weakness or numbness. 10 point ROS negative except as marked above and in HPI. Physical Exam - Vital signs Vitals: Temp Pulse Resp BP Pulse Ox 98.7 F 89 20 132/74 H 100 08/06/18 19:58 08/06/18 19:58 08/06/18 19:58 08/06/18 19:58 08/06/18 19:58 Interpretation: Normal Notes: PHYSICAL EXAMINATION: GENERAL: Well-appearing, well-nourished and in no acute distress. HEAD: Atraumatic, normocephalic. EYES: Pupils equal round and reactive to light, extraocular movements intact, sclera anicteric, conjunctiva are normal. ENT: nares patent, oropharynx clear without exudates. Moist mucous membranes. NECK: Normal range of motion, supple without lymphadenopathy LUNGS: Breath sounds clear to auscultation bilaterally and equal. No wheezes rales or rhonchi. HEART: Regular rate and rhythm without murmurs ABDOMEN: Soft, nontender, normoactive bowel sounds. No guarding, no rebound. No masses appreciated. EXTREMITIES: Normal range of motion, no pitting or edema. No cyanosis. NEUROLOGICAL: No focal neurological deficits. Moves all extremities spontaneou sly and on command. PSYCH: Normal mood, normal affect. SKIN: Warm, Dry, normal turgor, no rashes or lesions noted. Course - Re-evaluation Re-evalutation: 08/06/18 22:00 Patient presents that she wanted to confirm that she was . The patient denies any symptoms of any kind. No abdominal pain, no cramping, no bleeding. She states that she took 2+ tests earlier today, became scared, called an ambulance to come to the emergency department because she want to be sure that she was . Her hCG level does confirm that she is . There is no indication for further labs or a transvaginal ultrasound. I have advised outpatient OB follow-up. Our aids social worker will contact her in the morning as she is requesting resources given her social situation. - Vital Signs Vital signs: Temp Pulse Resp BP Pulse Ox 98.6 F 79 16 112/65 99 08/06/18 22:18 08/06/18 22:18 08/06/18 22:18 08/06/18 22:18 08/06/18 22:18 - Laboratory Laboratory results interpreted by me: 08/06/18 20:25 Beta HCG, Quant 1803.40 H Discharge - Discharge Clinical Impression: First trimester Condition: Good Disposition: HOME, SELF-CARE Additional Instructions: Your blood test does confirm that you are approximately 3-4 weeks . Follow-up with health department for care. Our aids social worker Carmine will contact you in the morning.
[2018-08-06 22:19] VITALS: BP 112/65
== END 2018-08-06 22:18 | disposition home or self-care (01) ==
LOC: ER 19:46
DX: Z32.01 Encounter for pregnancy test, result positive (principal); O99.331 Smoking (tobacco) complicating pregnancy, first trimester; Z3A.00 Weeks of gestation of pregnancy not specified; Z59.0 Homelessness
CPT/HCPCS: 36415; 84702; 99281

== ENCOUNTER → 2018-09-19 | Outpatient (CLI) | payer SELFPAY ==
--- NOTE | 2018-09-19 15:16 | RADIOLOGY REPORT (SQ) ---
EXAM DESCRIPTION: U/S [id number] TRNABD 1GES W/ODOP COMPLETED DATE/TIME: 09/19/2018 2:46 pm REASON FOR STUDY: Z34.81 ENCOUNTER FOR SUPRVSN OF NORMAL , FIRST TRIMESTER Z34.81 ENCOUNTE R FOR SUPRVSN OF NORMAL , FIRST TRIM COMPARISON: None. TECHNIQUE: Transabdominal static and realtime grayscale images acquired of the pelvis. Additional se lected spectral and color Doppler images recorded. All images stored on PACs. CG: Not available. CLINICAL DATES: KAYCEE: 04/11/2019. EGA: 10 weeks 6 days LIMITATIONS: None. FINDINGS: FETUS: Single Living intrauterine . ULTRASOUND EGA: 11 weeks 0 days ULTRASOUND KAYCEE: 04/10/2019 EFW: Not applicable less than 20 weeks. CRL: 4.16 cm FHR: 165 beats per minute. SURVEY: No visualized anomalies. AMNIOTIC FLUID: Adequate amount. PLACENTA: Not yet developed due to early gestation. SUBCHORIONIC BLEED: No. SIZE OF BLEED: Not applicable. UTERUS: The uterus measures 10.5 x 9.1 x 7.8 cm. No masses. No anomalies. CERVICAL LENGTH: 3.4 cm Closed. RIGHT ADNEXA: Not visualized due to overlying bowel gas. LEFT ADNEXA: Not visualized due to overlying bowel gas. FREE FLUID: Small amount of free fluid in the posterior cul-de-sac. OTHER: No other significant finding. IMPRESSION: LIVING INTRAUTERINE . EGA: 11 weeks 0 days Trimester of : First - 0 to 13 weeks. TECHNICAL DOCUMENTATION: JOB ID: [id number] [employer]- All Rights Reserved Reading location - IP/workstation name: [email or web address]
== END ==
LOC: EDSTATUS 11:05 → RAD 16:17
PROVIDERS: ATTEND Midwife
DX: Z34.81 Encounter for supervision of other normal pregnancy, first trimester (principal)
CPT/HCPCS: 76801

== ENCOUNTER 2018-09-22 12:50 | Emergency (ER) | payer SELFPAY ==
--- NOTE | 2018-09-22 14:37 | ER Document Report ---
ED Medical Screen (RME) - General Chief Complaint: Suicidal Ideation Stated Complaint: ANXIETY Time Seen by Provider: 09/22/18 14:34 Primary Care Provider: NORBERTO HARDEN CNM [Primary Care Provider] - Follow up as needed TRAVEL OUTSIDE OF THE [place] IN LAST 30 DAYS: No - HPI Notes: 09/22/18 14:34 Patient says she is going through a lot of stress currently. She says she is and things has not been going very well with her boyfriend. She also has some family issues and she says she is currently homeless. Patient is tearful, and verbalized to me that she wants to kill herself by overdosing on medication. Patient has history of depression and bipolar disorder. She says she is not taking her psych medication because she could not afford her medication. She also said her mother lives in [place] and her father is in care home currently. She came down to [facility] to stay with other family members by her grandmom and her stepmother. Physical exam showed a young woman in distress and crying. She will be medically cleared and psychiatric evaluation will be done in the emergency room. - Related Data Allergies/Adverse Reactions: No Known Allergies Allergy (Verified 09/22/18 13:25) Past Medical History - Social History Frequency of alcohol use: None Drug Abuse: None Renal/ Medical History: Reports: Hx Ovarian Cysts, Hx Pelvic Inflammatory Disease - States she's had GC chlamydia and genital herpes. Denies: Hx Peritoneal Dialysis Psychiatric Medical History: Reports: Hx Attention Deficit Hyperactivity Disorder, Hx Bipolar Disorder, Hx Depression, Hx Schizophrenia Past Surgical History: Reports: Hx Gynecologic Surgery - Exploratory surgery for endometriosis, stretching the cervic due to stenosi - Immunizations Hx Diphtheria, Pertussis, Tetanus Vaccination: No Doctor's Discharge - Discharge Referrals: NORBERTO HARDEN CNM [Primary Care Provider] - Follow up as needed
[2018-09-22 15:04] LABS: ABSOLUTE EOSINOPHILS # (AUTO) 0.1 10^3/uL (0.0-0.6); ABSOLUTE LYMPHOCYTES (AUTO) 1.7 10^3/uL (0.5-4.7); ABSOLUTE MONOCYTES (AUTO) 0.6 10^3/uL (0.1-1.4); BASOPHILS % (AUTO) 0.3 % (0-2); EOSINOPHILS % (AUTO) 0.8 % (0-6); HEMATOCRIT 40.5 % (36.0-47.0); HEMOGLOBIN 14.2 g/dL (12.0-15.5); LYMPHOCYTES % (AUTO) 26.9 % (13-45); MEAN CORPUSCULAR HEMOGLOBIN 29.9 pg (27.0-33.4); MEAN CORPUSCULAR VOLUME 86 fl (80-97); MONOCYTES % (AUTO) 9.9 % (3-13); PLATELET COUNT 279 10^3/uL (150-450); RED BLOOD COUNT 4.73 10^6/uL (3.72-5.28); SEGMENTED NEUTROPHILS % (AUTO) 62.1 % (42-78); TOTAL CELLS COUNTED % (AUTO) 100 %; WHITE BLOOD COUNT 6.5 10^3/uL (4.0-10.5)
[2018-09-22 15:06] LABS: APPEARANCE,URINE SLIGHTLY-CLOUDY; BILIRUBIN,URINE NEGATIVE (NEGATIVE); COLOR,URINE YELLOW; GLUCOSE, URINE NEGATIVE (NEGATIVE); KETONES,URINE 20 mg/dL (NEGATIVE); LEUKOCYTE ESTERASE,URINE MODERATE (NEGATIVE); NITRITE,URINE NEGATIVE (NEGATIVE); PROTEIN,URINE NEGATIVE (NEGATIVE); URINE SPECIFIC GRAVITY 1.023; UROBILINOGEN,URINE NEGATIVE mg/dL (<2.0)
[2018-09-22 15:20] LABS: URINE AMPHETAMINES SCREEN NEGATIVE; URINE BARBITURATES SCREEN NEGATIVE; URINE BENZODIAZEPINES SCREEN NEGATIVE; URINE COCAINE SCREEN NEGATIVE; URINE MARIJUANA (THC) SCREEN NEGATIVE; URINE METHADONE SCREEN NEGATIVE; URINE PHENCYCLIDINE SCREEN NEGATIVE
[2018-09-22 15:24] LABS: ACETAMINOPHEN < 10 ug/mL (10-30); ALANINE AMINOTRANSFERASE 9 U/L (9-52); ALCOHOL < 10 mg/dL (NONE DETECTED); ALKALINE PHOSPHATASE 64 U/L (38-126); ANION GAP 14 (5-19); ASPARTATE AMINO TRANSFERASE 24 U/L (14-36); BILIRUBIN,DIRECT 0.2 mg/dL (0.0-0.4); BILIRUBIN,TOTAL 0.6 mg/dL (0.2-1.3); BLOOD UREA NITROGEN 12 mg/dL (7-20); CALCIUM 10.7 mg/dL (8.4-10.2); CARBON DIOXIDE 18 mmol/L (22-30); CHLORIDE 105 mmol/L (98-107); GLUCOSE 94 mg/dL (75-110); POTASSIUM 4.1 mmol/L (3.6-5.0); SALICYLATE < 1.0 mg/dL (2.0-20.0); SODIUM 136.5 mmol/L (137-145); TOTAL PROTEIN 8.8 g/dL (6.3-8.2)
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
[2018-09-22 16:23] VITALS: BP 113/70
== END 2018-09-22 16:23 | disposition home or self-care (01) ==
LOC: ER 12:50
DX: O26.91 Pregnancy related conditions, unspecified, first trimester (principal); R45.851 Suicidal ideations; F41.9 Anxiety disorder, unspecified; Z59.0 Homelessness; Z3A.10 10 weeks gestation of pregnancy
CPT/HCPCS: 36415; 80053; 80307; 81001; 81025; 84443; 85025; 99285

== ENCOUNTER 2018-10-03 13:28 | Emergency (ER) | payer MEDICAID ==
[2018-10-03 15:58] LABS: ABSOLUTE EOSINOPHILS # (AUTO) 0.1 10^3/uL (0.0-0.6); ABSOLUTE LYMPHOCYTES (AUTO) 1.5 10^3/uL (0.5-4.7); ABSOLUTE MONOCYTES (AUTO) 0.7 10^3/uL (0.1-1.4); ABSOLUTE NEUT (AUTO) 3.2 10^3/uL (1.7-8.2); BASOPHILS % (AUTO) 0.3 % (0-2); EOSINOPHILS % (AUTO) 2.2 % (0-6); HEMATOCRIT 36.7 % (36.0-47.0); HEMOGLOBIN 12.8 g/dL (12.0-15.5); LYMPHOCYTES % (AUTO) 27.3 % (13-45); MEAN CORPUSCULAR HEMOGLOBIN 29.8 pg (27.0-33.4); MEAN CORPUSCULAR HGB CONC 34.7 g/dL (32.0-36.0); MEAN CORPUSCULAR VOLUME 86 fl (80-97); MONOCYTES % (AUTO) 12.8 % (3-13); PLATELET COUNT 258 10^3/uL (150-450); RED BLOOD COUNT 4.28 10^6/uL (3.72-5.28); RED CELL DISTRIBUTION WIDTH 14.1 % (11.5-14.0); SEGMENTED NEUTROPHILS % (AUTO) 57.4 % (42-78); TOTAL CELLS COUNTED % (AUTO) 100 %; WHITE BLOOD COUNT 5.6 10^3/uL (4.0-10.5)
[2018-10-03 16:17] LABS: ALANINE AMINOTRANSFERASE 17 U/L (9-52); ALBUMIN 3.7 g/dL (3.5-5.0); ALKALINE PHOSPHATASE 50 U/L (38-126); ASPARTATE AMINO TRANSFERASE 19 U/L (14-36); CARBON DIOXIDE 19 mmol/L (22-30); GLUCOSE 89 mg/dL (75-110); POTASSIUM 4.1 mmol/L (3.6-5.0); TOTAL PROTEIN 6.9 g/dL (6.3-8.2)
[2018-10-03 16:19] LABS: ANION GAP 11 (5-19); CHLORIDE 104 mmol/L (98-107); SODIUM 134.3 mmol/L (137-145)
[2018-10-03 16:21] LABS: BILIRUBIN,DIRECT 0.1 mg/dL (0.0-0.4); BILIRUBIN,TOTAL 0.1 mg/dL (0.2-1.3); BLOOD UREA NITROGEN 10 mg/dL (7-20); CALCIUM 9.9 mg/dL (8.4-10.2)
--- NOTE | 2018-10-03 17:10 | RADIOLOGY REPORT (SQ) ---
EXAM DESCRIPTION: U/S [id number] TRNABD 1GES W/ODOP COMPLETED DATE/TIME: 10/03/2018 5:03 pm REASON FOR STUDY: CRAMPING COMPARISON: None. TECHNIQUE: Transabdominal static and realtime grayscale images acquired of the pelvis. Additional se lected spectral and color Doppler images recorded. All images stored on PACs. bHCG: Not applicable. CLINICAL DATES: LMP 07/04/2018. 13 weeks 0 days. LIMITATIONS: None. FINDINGS: FETUS: Single Living intrauterine . ULTRASOUND EGA: 12 weeks 6 days. ULTRASOUND KAYCEE: 04/11/2019 EFW: Not applicable less than 20 weeks. CRL: 6.4 cm. FHR: 168 beats per minute. SURVEY: Too early to assess. AMNIOTIC FLUID: Adequate amount. PLACENTA: Not yet developed due to early gestation. SUBCHORIONIC BLEED: No SIZE OF BLEED: Not applicable. UTERUS: No masses or anomalies. 12.4 x 9.9 x 9 cm. CERVICAL LENGTH: 3 cm. Closed. RIGHT ADNEXA: Ovary not seen. No adnexal free fluid. No adnexal masses. LEFT ADNEXA: Normal ovary with normal vascular flow. 2.5 x 1.3 x 1.4 cm. No adnexal free fluid. No adnexal masses. FREE FLUID: None. OTHER: No other significant finding. IMPRESSION: LIVING INTRAUTERINE . EGA 12 weeks 6 days. Trimester of : First - 0 to 13 weeks. TECHNICAL DOCUMENTATION: JOB ID: [id number] [employer]- All Rights Reserved rev Reading location - IP/workstation name: [email or web address]
--- NOTE | 2018-10-03 17:43 | ER Document Report ---
ED General - General Chief Complaint: Abdominal Cramping Stated Complaint: SYCOPE Time Seen by Provider: 10/03/18 14:58 Primary Care Provider: NORBERTO HARDEN CNM [Primary Care Provider] - Follow up as needed Notes: 23-year-old female presents to the emergency department for lower abdominal cramping "real bad ", dizziness, lightheadedness, headache, lower abdominal pressure. She denies any vaginal bleeding or abnormal vaginal discharge. She denies fevers or chills, shortness of breath or chest pain. She denies any urinary symptoms. She has no other complaints TRAVEL OUTSIDE OF THE [place] IN LAST 30 DAYS: No - Related Data Allergies/Adverse Reactions: No Known Allergies Allergy (Verified 10/03/18 13:32) Past Medical History - Social History Smoking Status: Unknown if Ever Smoked Family History: Arthritis, CAD, CVA, DM, Hyperlipidemia, Hypertension, Malignancy, Thyroid Disfunction Renal/ Medical History: Reports: Hx Ovarian Cysts, Hx Pelvic Inflammatory Disease - States she's had GC chlamydia and genital herpes. Denies: Hx Peritoneal Dialysis Psychiatric Medical History: Reports: Hx Attention Deficit Hyperactivity Disorder, Hx Bipolar Disorder, Hx Depression, Hx Schizophrenia Past Surgical History: Reports: Hx Gynecologic Surgery - Exploratory surgery for endometriosis, stretching the cervic due to stenosi - Immunizations Hx Diphtheria, Pertussis, Tetanus Vaccination: No Review of Systems - Review of Systems Constitutional: See HPI EENT: No symptoms reported Cardiovascular: See HPI Respiratory: See HPI Gastrointestinal: See HPI Genitourinary: See HPI Female Genitourinary: See HPI Musculoskeletal: No symptoms reported Skin: No symptoms reported Hematologic/Lymphatic: No symptoms reported Neurological/Psychological: No symptoms reported Physical Exam - Vital signs Vitals: Temp Pulse Resp BP Pulse Ox 98.3 F 90 18 130/72 H 99 10/03/18 13:43 10/03/18 13:43 10/03/18 13:43 10/03/18 13:43 10/03/18 13:43 - Notes Notes: PHYSICAL EXAMINATION: Reviewed vital signs and charting by RN GENERAL: Alert, interacts well. No acute distress. HEAD: Normocephalic, atraumatic. EYES: Pupils equal, round. Extraocular movements intact. ENT: Oral mucosa moist NECK: Full range of motion. Supple. Trachea midline. LUNGS: Clear to auscultation bilaterally, no wheezes, rales, or rhonchi. No respiratory distress. HEART: Regular rate and rhythm. No murmur ABDOMEN: Gravid uterus, left adnexal tenderness. Non-distended. Bowel sounds present. no McBurney's point tenderness, no Barton sign. EXTREMITIES: Moves all 4 extremities spontaneously. No edema, No cyanosis. PSYCH: Normal affect, normal mood. SKIN: Warm, dry, normal turgor. No rashes or lesions noted. Course - Re-evaluation Re-evalutation: 10/03/18 17:41 Well-appearing. Denies any current dizziness that has resolved. Complains of headache. We will give her Tylenol. Ultrasound completed shows a live intrauterine gestational age 12 weeks 6 days. Left ovary visualized L pathology to correlate with her left lower quadrant pain. No subchorionic bleed. Lab work overall unremarkable. Urinalysis pending. 10/03/18 17:43 10/03/18 18:05 10/03/18 18:06 Remaining blood work has resulted and there is no evidence of urinary tract infection or abnormal blood work. Patient's pain most likely represents ligamentous stretching. Patient is safe and stable to discharge home. Return precautions given. - Vital Signs Vital signs: Temp Pulse Resp BP Pulse Ox 98.3 F 90 18 130/72 H 99 10/03/18 13:43 10/03/18 13:43 10/03/18 13:43 10/03/18 13:43 10/03/18 13:43 - Laboratory Result Diagrams: 10/03/18 15:20 10/03/18 15:20 Laboratory results interpreted by me: 10/03/18 10/03/18 10/03/18 14:15 15:20 15:20 RDW 14.1 H Sodium 134.3 L Carbon Dioxide 19 L Total Bilirubin 0.1 L Beta HCG, Quant 288317.00 H Urine Urobilinogen 2.0 H Urine Ascorbic Acid 40 H Discharge - Discharge Clinical Impression: Abdominal cramping affecting Condition: Good Disposition: HOME, SELF-CARE Additional Instructions: You were seen for abdominal pain during . Your ultrasound and labs are normal today. The exact cause your pain is uncertain but is likely related to your developing baby. Please follow-up with your SCIENTIFIC TECHNICAL WRITER at your appointment on October 11. Return to the emergency department immediately if you have worsening of your pain, have persistent vomiting, develop a fever of greater than 100.4F, begin to have vaginal bleeding, or any other symptoms that are worrisome to you. Referrals: NORBERTO HARDEN CNM [Primary Care Provider] - Follow up as needed
[2018-10-03 17:44] LABS: APPEARANCE,URINE SLIGHTLY-CLOUDY; BILIRUBIN,URINE NEGATIVE (NEGATIVE); COLOR,URINE YELLOW; GLUCOSE, URINE NEGATIVE (NEGATIVE); KETONES,URINE NEGATIVE (NEGATIVE); LEUKOCYTE ESTERASE,URINE NEGATIVE (NEGATIVE); NITRITE,URINE NEGATIVE (NEGATIVE); PROTEIN,URINE NEGATIVE (NEGATIVE); URINE SPECIFIC GRAVITY 1.024
[2018-10-03] MEDS ORDERED: ACETAMINOPHEN 325 MG TABLET PO ONE (18:09)
[2018-10-03 18:33] VITALS: BP 125/74
== END 2018-10-03 18:33 | disposition home or self-care (01) ==
LOC: ER 13:28
DX: O26.891 Other specified pregnancy related conditions, first trimester (principal); R10.9 Unspecified abdominal pain; R55 Syncope and collapse; R10.30 Lower abdominal pain, unspecified; R42 Dizziness and giddiness; R51 Headache; Z3A.12 12 weeks gestation of pregnancy
CPT/HCPCS: 99284; 86900; 86901; 36415; 84702; 85025; 80053; 81001; 76801; J3490

== ENCOUNTER 2018-10-23 22:57 | Emergency (ER) | payer MEDICAID ==
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
[2018-10-24 00:14] LABS: ABSOLUTE EOSINOPHILS # (AUTO) 0.1 10^3/uL (0.0-0.6); ABSOLUTE LYMPHOCYTES (AUTO) 3.9 10^3/uL (0.5-4.7); ABSOLUTE MONOCYTES (AUTO) 0.9 10^3/uL (0.1-1.4); ABSOLUTE NEUT (AUTO) 4.8 10^3/uL (1.7-8.2); BASOPHILS % (AUTO) 0.2 % (0-2); EOSINOPHILS % (AUTO) 0.9 % (0-6); HEMATOCRIT 35.6 % (36.0-47.0); HEMOGLOBIN 12.7 g/dL (12.0-15.5); LYMPHOCYTES % (AUTO) 40.6 % (13-45); MEAN CORPUSCULAR HEMOGLOBIN 30.4 pg (27.0-33.4); MEAN CORPUSCULAR HGB CONC 35.7 g/dL (32.0-36.0); MEAN CORPUSCULAR VOLUME 85 fl (80-97); MONOCYTES % (AUTO) 8.8 % (3-13); PLATELET COUNT 263 10^3/uL (150-450); RED BLOOD COUNT 4.18 10^6/uL (3.72-5.28); RED CELL DISTRIBUTION WIDTH 13.2 % (11.5-14.0); SEGMENTED NEUTROPHILS % (AUTO) 49.5 % (42-78); TOTAL CELLS COUNTED % (AUTO) 100 %; WHITE BLOOD COUNT 9.6 10^3/uL (4.0-10.5)
[2018-10-24 00:24] LABS: ALANINE AMINOTRANSFERASE 18 U/L (9-52); ALBUMIN 3.9 g/dL (3.5-5.0); ALKALINE PHOSPHATASE 60 U/L (38-126); ANION GAP 14 (5-19); ASPARTATE AMINO TRANSFERASE 21 U/L (14-36); BILIRUBIN,DIRECT 0.2 mg/dL (0.0-0.4); BILIRUBIN,TOTAL 0.2 mg/dL (0.2-1.3); BLOOD UREA NITROGEN 9 mg/dL (7-20); CALCIUM 9.7 mg/dL (8.4-10.2); CARBON DIOXIDE 15 mmol/L (22-30); CHLORIDE 107 mmol/L (98-107); GLUCOSE 87 mg/dL (75-110); SODIUM 135.5 mmol/L (137-145); TOTAL PROTEIN 7.5 g/dL (6.3-8.2)
[2018-10-24 00:44] LABS: ACETAMINOPHEN < 10 ug/mL (10-30); ALCOHOL < 10 mg/dL (NONE DETECTED); SALICYLATE < 1.0 mg/dL (2.0-20.0)
[2018-10-24 00:45] LABS: POTASSIUM 2.9 mmol/L (3.6-5.0)
[2018-10-24] MEDS ORDERED: POTASSIUM CHLORIDE 10 MEQ CAPSULE.ER PO ONE ×2 (00:45→04:31)
[2018-10-24 01:47] LABS: APPEARANCE,URINE SLIGHTLY-CLOUDY; BILIRUBIN,URINE NEGATIVE (NEGATIVE); COLOR,URINE YELLOW; GLUCOSE, URINE NEGATIVE (NEGATIVE); KETONES,URINE TRACE mg/dL (NEGATIVE); LEUKOCYTE ESTERASE,URINE NEGATIVE (NEGATIVE); NITRITE,URINE NEGATIVE (NEGATIVE); PROTEIN,URINE NEGATIVE (NEGATIVE); UROBILINOGEN,URINE NEGATIVE mg/dL (<2.0)
[2018-10-24 02:00] LABS: URINE AMPHETAMINES SCREEN NEGATIVE; URINE BARBITURATES SCREEN NEGATIVE; URINE BENZODIAZEPINES SCREEN NEGATIVE; URINE COCAINE SCREEN NEGATIVE; URINE MARIJUANA (THC) SCREEN NEGATIVE; URINE METHADONE SCREEN NEGATIVE; URINE PHENCYCLIDINE SCREEN NEGATIVE
[2018-10-24] MEDS ORDERED: NORMAL SALINE 1000 ML 1,000 ML IV ONE (02:18)
[2018-10-24 05:50] LABS: ANION GAP 8 (5-19); BLOOD UREA NITROGEN 5 mg/dL (7-20); CALCIUM 9.1 mg/dL (8.4-10.2); CARBON DIOXIDE 17 mmol/L (22-30); CHLORIDE 113 mmol/L (98-107); GLUCOSE 86 mg/dL (75-110); SODIUM 138.4 mmol/L (137-145)
[2018-10-24 06:19] LABS: POTASSIUM 4.3 mmol/L (3.6-5.0)
--- NOTE | 2018-10-24 07:00 | EKG REPORT ---
SEVERITY:- ABNORMAL ECG - SINUS TACHYCARDIA ATRIAL PREMATURE COMPLEX LEFT ATRIAL ABNORMALITY LVH WITH SECONDARY REPOLARIZATION ABNORMALITY ST DEPRESSION, CONSIDER ISCHEMIA, ANT-LAT LDS : Confirmed by: Nader Osoroi 24-Oct-2018 06:59:41
--- NOTE | 2018-10-24 08:16 | PSYCHOLOGICAL NOTE ---
Psych Note - Psych Note Date seen by psych provider: 10/24/18 Time seen by psych provider: 07:84 - [id number] Psych Note: Reason for Consult: intentional overdose Patient confirms she remembers clinician and reports she overdosed on pills. When asked what type of pills she reports it was Unisom. Patient states that she is going through a lot right now. When asked for further explanation she states "I do not want to talk about it." The patient then pulled her sheet over her head, rolled over, and refused to further engage with clinician. Patient is alert and orientated to person, place, time and circumstance. Mood is irritable with congruent affect. Patient reports intentional overdose on Unisom. Patient denies homicidal ideation. Delusions are absent behaviors congruent with an intact reality based presentation i.e. organized and linear thought process. Eye contact is fair. Conversational speech is short and clearly conveys her irritability. Intellectual abilities appear to be within the average range. Attention and concentration are poor. Insight, judgment, impulse control are historically poor. 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 I just got the job and I am not trying to lose it." Patient confirms she was trying to kill herself when taking the Unisom. When asked why she reports "I got depressed." Patient will not elaborate on triggers only reporting that she is a lot going on and stressed. She does identify it being difficult with being and homelessness. Patient becomes notably irritable when asked what is changed from yesterday to today (i.e. attempting to kill herself yesterday versus wanting to be discharged to sampler pickup her uniform for work). Patient states "nothing is changed... I am just not about to lose this job... Oh and I feel better." Clinician notes patient's mood is overall dysphoric and then becomes irritable when asking to leave and time frames; affect is congruent. Patient reports that she has been clean since April and confirms she has not followed up with her mental health. 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 Patient discloses intentional overdose on Unisom. She states she is going through a lot right now however then refuses to further engage stating she does not want to talk anymore. Patient is currently 16 weeks . Patient will be reevaluated. Dr. Kohli was consulted to care management of this patient; attending physicians agreement with augmentations and disposition per
--- NOTE | 2018-10-24 09:48 | ER Document Report ---
Doctor's Note Notes: 10/24/18 09:47 This 23-year-old female patient who is 16 weeks came to the emergency room yesterday after a Unisom overdose. She does suffer from schizoaffective bipolar type disorder and PTSD. She has attempted or threatened overdose in the past due to difficulty dealing with stress. She did have IVC paperwork filled out today and she will remain on IVC hold until she can be psychiatrically cleared or transferred. The patient is medically cleared for transfer or discharge.
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
--- NOTE | 2018-10-25 16:55 | ER Document Report ---
Doctor's Note Notes: 10/25/18 16:53 Patient continues to wait on placement. She will continue on IVC hold. She is alert, oriented pleasant today. She states she needs to be at [employer] to get her uniform for a new job she is supposed to start. She does state that she took the overdose because her significant other went out and she did not like being left alone. The plan is for further attempts to get the patient placed tomorrow unless she seems to stabilize better and is deemed safe to go home.
[2018-10-26] MEDS ORDERED: PRENATAL VITAMIN W DHA CAPSULE PO ONE (08:59)
--- NOTE | 2018-10-26 17:36 | ER Document Report ---
Doctor's Note Notes: 10/26/18 17:35 The patient is doing well today, unchanged from yesterday. She has been accepted at [facility] and should be going tomorrow.
[2018-10-26] MEDS ORDERED: ONDANSETRON 4 MG TAB.RAPDIS PO ONE (21:09)
[2018-10-26] MEDS ORDERED: DIPHENHYDRAMINE HCL 25 MG CAPSULE PO ONE (21:10)
[2018-10-27 06:20] VITALS: BP 110/66
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
== END 2018-10-27 08:40 ==
LOC: ER 22:57
DX: O9A.212 Injury, poisoning and certain other consequences of external causes complicating pregnancy, second trimester (principal); T45.0X2A Poisoning by antiallergic and antiemetic drugs, intentional self-harm, initial encounter; O99.342 Other mental disorders complicating pregnancy, second trimester; F25.0 Schizoaffective disorder, bipolar type; F43.10 Post-traumatic stress disorder, unspecified; O99.282 Endocrine, nutritional and metabolic diseases complicating pregnancy, second trimester; E87.6 Hypokalemia; O26.892 Other specified pregnancy related conditions, second trimester; Z3A.16 16 weeks gestation of pregnancy
CPT/HCPCS: 93005; 99285; 96360; 36415; 80307 ×4; 83735; 85025; 80048; 80053; 81001; 93010; J3490 ×2; S0119; J7030

== ENCOUNTER 2018-12-17 20:15 | Emergency (ER) | payer MEDICAID ==
[2018-12-17 20:21] VITALS: BP 129/69
[2018-12-17] MEDS ORDERED: NORMAL SALINE 1000 ML 1,000 ML IV ONE (20:51)
--- NOTE | 2018-12-17 20:52 | ER Document Report ---
ED Medical Screen (RME) - General Chief Complaint: Dizziness Stated Complaint: DIZZINESS Time Seen by Provider: 12/17/18 20:50 Notes: Patient is a 23-year-old female G2, P0 currently 23 weeks presents to the emergency department for generalized dizziness. States she was on her feet all day and has not been drinking much fluid. Patient states she feels as though she is dehydrated. Patient's denying any abdominal pain or cramping. Patient denies any chest pain or respiratory distress. Patient's denying any dysuria but she is admitting to some generalized malodorous vaginal discharge. GENERAL: Alert, interacts well. No acute distress. ABDOMEN: Soft, obviously gravid non-distended. Bowel sounds present in all 4 quadrants. I have greeted and performed a rapid initial assessment of this patient. A comprehensive ED assessment and evaluation of the patient, analysis of test results and completion of the medical decision making process will be conducted by additional ED providers. This medical record was dictated with voice recognizing software. There may be grammatical, syntax errors that are unintended. TRAVEL OUTSIDE OF THE [place] IN LAST 30 DAYS: No - Related Data Allergies/Adverse Reactions: No Known Allergies Allergy (Verified 10/03/18 13:32) Past Medical History Renal/ Medical History: Reports: Hx Ovarian Cysts, Hx Pelvic Inflammatory Disease - States she's had GC chlamydia and genital herpes. Denies: Hx Peritoneal Dialysis Psychiatric Medical History: Reports: Hx Attention Deficit Hyperactivity Disorder, Hx Bipolar Disorder, Hx Depression, Hx Schizophrenia Past Surgical History: Reports: Hx Gynecologic Surgery - Exploratory surgery for endometriosis, stretching the cervic due to stenosi - Immunizations Hx Diphtheria, Pertussis, Tetanus Vaccination: No Physical Exam - Vital signs Vitals: Temp Pulse Resp BP Pulse Ox 98.6 F 76 18 129/69 H 100 12/17/18 20:20 12/17/18 20:20 12/17/18 20:20 12/17/18 20:20 12/17/18 20:20 Course - Vital Signs Vital signs: Temp Pulse Resp BP Pulse Ox 98.6 F 76 18 129/69 H 100 12/17/18 20:20 12/17/18 20:20 12/17/18 20:20 12/17/18 20:20 12/17/18 20:20
[2018-12-17 21:23] LABS: APPEARANCE,URINE CLOUDY; BILIRUBIN,URINE NEGATIVE (NEGATIVE); COLOR,URINE YELLOW; GLUCOSE, URINE NEGATIVE (NEGATIVE); KETONES,URINE TRACE mg/dL (NEGATIVE); LEUKOCYTE ESTERASE,URINE TRACE (NEGATIVE); NITRITE,URINE NEGATIVE (NEGATIVE); PROTEIN,URINE NEGATIVE (NEGATIVE); URINE SPECIFIC GRAVITY 1.024; UROBILINOGEN,URINE NEGATIVE mg/dL (<2.0)
[2018-12-17] MEDS ORDERED: RINGERS SOLUTION,LACTATED 1,000 ML IV ONE (22:18)
[2018-12-17] MEDS ORDERED: ONDANSETRON HCL INJ/PF 4 MG/2 ML SDV IV ONE (22:18)
[2018-12-17 22:20] LABS: ABSOLUTE EOSINOPHILS # (AUTO) 0.1 10^3/uL (0.0-0.6); ABSOLUTE LYMPHOCYTES (AUTO) 2.5 10^3/uL (0.5-4.7); ABSOLUTE MONOCYTES (AUTO) 0.9 10^3/uL (0.1-1.4); ABSOLUTE NEUT (AUTO) 6.4 10^3/uL (1.7-8.2); BASOPHILS % (AUTO) 0.3 % (0-2); EOSINOPHILS % (AUTO) 0.9 % (0-6); HEMATOCRIT 33.8 % (36.0-47.0); HEMOGLOBIN 11.8 g/dL (12.0-15.5); LYMPHOCYTES % (AUTO) 25.4 % (13-45); MEAN CORPUSCULAR HEMOGLOBIN 30.6 pg (27.0-33.4); MEAN CORPUSCULAR HGB CONC 34.9 g/dL (32.0-36.0); MEAN CORPUSCULAR VOLUME 88 fl (80-97); MONOCYTES % (AUTO) 9.2 % (3-13); PLATELET COUNT 221 10^3/uL (150-450); RED BLOOD COUNT 3.85 10^6/uL (3.72-5.28); RED CELL DISTRIBUTION WIDTH 12.7 % (11.5-14.0); SEGMENTED NEUTROPHILS % (AUTO) 64.2 % (42-78); TOTAL CELLS COUNTED % (AUTO) 100 %
--- NOTE | 2018-12-17 22:29 | ER Document Report ---
ED General - General Chief Complaint: Dizziness Stated Complaint: DIZZINESS Time Seen by Provider: 12/17/18 20:50 Mode of Arrival: Ambulatory Information source: Patient, [facility] Records Notes: 23-year-old female G2, P0 at 23 weeks presents with complaint of dizziness, one episode of vomiting, dysuria and vaginal discharge for 3 weeks. Patient [facility] She states that she is concerned for "infection". She has not been told by her sexual partners that they are positive for any infection but she still remains concerned. Patient states that earlier today she felt lightheaded, weak. She admits to not drinking enough fluids and working full-time. TRAVEL OUTSIDE OF THE [place] IN LAST 30 DAYS: No - HPI Onset: This afternoon Onset/Duration: Gradual, Persistent Quality of pain: Achy Severity: Mild Associated symptoms: Nausea, Vomiting, Other - Dizziness dysuria, vaginal discharge Exacerbated by: Standing Relieved by: Supine Similar symptoms previously: Yes Recently seen / treated by doctor: No - Related Data Allergies/Adverse Reactions: No Known Allergies Allergy (Verified 10/03/18 13:32) Past Medical History - General Information source: Patient - Social History Smoking Status: Never Smoker Chew tobacco use (# tins/day): No Frequency of alcohol use: None Drug Abuse: Methamphetamine Lives with: Family Family History: Arthritis, CAD, CVA, DM, Hyperlipidemia, Hypertension, Malignancy, Thyroid Disfunction Patient has suicidal ideation: No Patient has homicidal ideation: No Renal/ Medical History: Reports: Hx Ovarian Cysts, Hx Pelvic Inflammatory Disease - States she's had GC chlamydia and genital herpes. Denies: Hx Peritoneal Dialysis Psychiatric Medical History: Reports: Hx Attention Deficit Hyperactivity Disorder, Hx Bipolar Disorder, Hx Depression, Hx Schizophrenia Past Surgical History: Reports: Hx Gynecologic Surgery - Exploratory surgery for endometriosis, stretching the cervic due to stenosi - Immunizations Hx Diphtheria, Pertussis, Tetanus Vaccination: No Review of Systems - Review of Systems Notes: REVIEW OF SYSTEMS: CONSTITUTIONAL : Denies fever, chills, or sweats. Denies recent illness. Denies weight loss, recent hospitalizations. EENT: Denies visual changes, eye pain. Denies sore throat, oral lesions, d ifficulty swallowing. CARDIOVASCULAR: Denies chest pain. Denies palpitations. Denies lower extremity edema. RESPIRATORY: Denies cough. Denies shortness of breath, wheezing. GASTROINTESTINAL: Denies abdominal pain or distention. Denies diarrhea. Denies blood in vomitus, stools, or per rectum. Denies black, tarry stools. Denies constipation. GENITOURINARY: Denies difficulty urinating, + painful urination, frequency, blood in urine, + vaginal discharge. MUSCULOSKELETAL: Denies back or neck pain or stiffness. Denies joint pain or swelling. SKIN: Denies rash, lesions or sores. HEMATOLOGIC : Denies easy bruising or bleeding. LYMPHATIC: Denies swollen glands. NEUROLOGICAL: Denies confusion or altered mental status. Denies loss of consciousness. + dizziness and lightheadedness. Denies headache. Denies weakness or paralysis. Denies problems difficulty with ambulation, slurred speech. Denies sensory loss, numbness, or tingling. Denies seizures. PSYCHIATRIC: Denies anxiety or stress. Denies depression, suicidal ideation, or homicidal ideation. Denies visual or auditory hallucinations. Physical Exam - Vital signs Vitals: Temp Pulse Resp BP Pulse Ox 98.6 F 76 18 129/69 H 100 12/17/18 20:20 12/17/18 20:20 12/17/18 20:20 12/17/18 20:20 12/17/18 20:20 - Notes Notes: PHYSICAL EXAMINATION: GENERAL: Well-appearing, well-nourished and in no acute distress. HEAD: Atraumatic, normocephalic. EYES: Pupils equal round and reactive to light, extraocular movements intact, conjunctiva are normal. ENT: Nares patent, oropharynx clear without exudates. Moist mucous membranes. NECK: Normal range of motion, supple without lymphadenopathy LUNGS: Breath sounds clear to auscultation bilaterally and equal. No wheezes rales or rhonchi. HEART: Regular rate and rhythm without murmurs ABDOMEN: Soft, nontender, nondistended abdomen. No guarding, no rebound. No masses appreciated. Female : Pelvic exam; External genitalia unremarkable. Speculum exam with white malodorous discharge. Vaginal wall unremarkable. Os closed. No cervical motion tenderness. No adnexal tenderness or masses appreciated. Swabs obtained for gonorrhea, chlamydia and wet prep. Musculoskeletal: Normal range of motion, no pitting or edema. No cyanosis. NEUROLOGICAL: Cranial nerves grossly intact. Normal speech, normal gait. Normal sensory, motor exams PSYCH: Normal mood, normal affect. SKIN: Warm, Dry, normal turgor, no rashes or lesions noted. Course - Re-evaluation Re-evalutation: 12/17/18 23:41 Laboratory 12/17/18 12/17/18 12/17/18 21:02 21:02 22:05 WBC 10.0 RBC 3.85 Hgb 11.8 L Hct 33.8 L MCV 88 MCH 30.6 MCHC 34.9 RDW 12.7 Plt Count 221 Seg Neutrophils % 64.2 Lymphocytes % 25.4 Monocytes % 9.2 Eosinophils % 0.9 Basophils % 0.3 Absolute Neutrophils 6.4 Absolute Lymphocytes 2.5 Absolute Monocytes 0.9 Absolute Eosinophils 0.1 Absolute Basophils 0.0 Sodium Potassium Chloride Carbon Dioxide Anion Gap BUN Creatinine Est GFR ( Amer) Est GFR (Non-Af Amer) Glucose Calcium Total Bilirubin Direct Bilirubin Neonat Total Bilirubin Neonat Direct Bilirubin Neonat Indirect Bili AST ALT Alkaline Phosphatase Total Protein Albumin Urine Color YELLOW Urine Appearance CLOUDY Urine pH 5.0 Ur Specific [place] 1.024 Urine Protein NEGATIVE Urine Glucose (UA) NEGATIVE Urine Ketones TRACE H Urine Blood NEGATIVE Urine Nitrite NEGATIVE Urine Bilirubin NEGATIVE Urine Urobilinogen NEGATIVE Ur Leukocyte Esterase TRACE H Urine WBC (Auto) 3 Urine RBC (Auto) 3 Urine Bacteria (Auto) TRACE Squamous Epi Cells Auto 37 Urine Mucus (Auto) FEW Urine Ascorbic Acid NEGATIVE Epi Cells (Wet Prep) Bacteria (Wet Prep) Trichomonas (Wet Prep) Vaginal WBC Vaginal RBC Vaginal Yeast Urine Opiates Screen NEGATIVE Urine Methadone Screen NEGATIVE Ur Barbiturates Screen NEGATIVE Ur Phencyclidine Scrn NEGATIVE Ur Amphetamines Screen NEGATIVE U Benzodiazepines Scrn NEGATIVE Urine Cocaine Screen NEGATIVE U Marijuana (THC) Screen NEGATIVE 12/17/18 12/17/18 22:05 22:33 WBC RBC Hgb Hct MCV MCH MCHC RDW Plt Count Seg Neutrophils % Lymphocytes % Monocytes % Eosinophils % Basophils % Absolute Neutrophils Absolute Lymphocytes Absolute Monocytes Absolute Eosinophils Absolute Basophils Sodium 136.8 L Potassium 4.0 Chloride 106 Carbon Dioxide 22 Anion Gap 9 BUN 12 Creatinine 0.76 Est GFR ( Amer) > 60 Est GFR (Non-Af Amer) > 60 Glucose 81 Calcium 9.7 Total Bilirubin 0.3 Direct Bilirubin 0.2 Neonat Total Bilirubin Not Reportable Neonat Direct Bilirubin Not Reportable Neonat Indirect Bili Not Reportable AST 35 ALT 37 Alkaline Phosphatase 62 Total Protein 6.7 Albumin 3.6 Urine Color Urine Appearance Urine pH Ur Specific [place] Urine Protein Urine Glucose (UA) Urine Ketones Urine Blood Urine Nitrite Urine Bilirubin Urine Urobilinogen Ur Leukocyte Esterase Urine WBC (Auto) Urine RBC (Auto) Urine Bacteria (Auto) Squamous Epi Cells Auto Urine Mucus (Auto) Urine Ascorbic Acid Epi Cells (Wet Prep) 4+ EPITHELIALS SEEN Bacteria (Wet Prep) 4+ BACTERIA SEEN Trichomonas (Wet Prep) NO TRICHOMONAS SEEN Vaginal WBC 1+ WBCS SEEN Vaginal RBC NO RBCS SEEN Vaginal Yeast NO YEAST SEEN Urine Opiates Screen Urine Methadone Screen Ur Barbiturates Screen Ur Phencyclidine Scrn Ur Amphetamines Screen U Benzodiazepines Scrn Urine Cocaine Screen U Marijuana (THC) Screen Temp Pulse Resp BP Pulse Ox 98.6 F 76 18 129/69 H 100 12/17/18 20:20 12/17/18 20:20 12/17/18 20:20 12/17/18 20:20 12/17/18 20:20 12/19/18 10:21 23-year-old female G2, P0 at 23 weeks presents with complaint of dizziness, one episode of vomiting, dysuria and vaginal discharge for 3 weeks. Patient [facility] She states that she is concerned for "infection". She has not been told by her sexual partners that they are positive for any infection but she still remains concerned. Patient states that earlier today she felt lightheaded, weak. She admits to not drinking enough fluids and working full-time.. Vital signs reviewed and within normal limits., Zaynab Conrad patient did receive IV fluids. 12/19/18 10:22 patient was evaluated and treated as appropriate for the patient's presenting symptoms and complaint, with consideration of any critical or life threatening conditions that may be associated with their obtained hist ory and exam as noted above. All results were discussed with patient and... Patient provided the opportunity to ask questions, and express concerns. Patient was educated on treatments based on their presumed diagnosis as noted above. At this time we will discharge the patient with return precautions and follow-up recommendations. Verbal discharge instructions given a the bedside. Medication warnings reviewed. Patient is in agreement with this plan and has verbalized understanding of return precautions. After careful consideration I feel that that patient can be safely discharged from the emergency department, they were advised to followup with a primary care physician in 2-3 days. Dictation on this chart was performed using voice recognition software and may result in unintended grammatical, spelling, syntax or errors. Wet prep showed bacterial vaginosis. Gonorrhea and Chlamydia negative. - Vital Signs Vital signs: Temp Pulse Resp BP Pulse Ox 98.6 F 76 18 129/69 H 100 12/17/18 20:20 12/17/18 20:20 12/17/18 20:20 12/17/18 20:20 12/17/18 20:20 - Laboratory Result Diagrams: 12/17/18 22:05 12/17/18 22:05 Laboratory results interpreted by me: 12/17/18 12/17/18 12/17/18 21:02 22:05 22:05 Hgb 11.8 L Hct 33.8 L Sodium 136.8 L Urine Ketones TRACE H Ur Leukocyte Esterase TRACE H Discharge - Discharge Clinical Impression: Second trimester , Bacterial vaginosis, Dizziness Nausea & vomiting Qualifiers: Vomiting type: unspecified Vomiting Intractability: non-intractable Qualified Code(s): R11.2 - Nausea with vomiting, unspecified Condition: Good Disposition: HOME, SELF-CARE Instructions: Antinausea Medication ([facility]), Dizziness ([facility]), Intravenous (IV) Fluids ([facility]), ([facility]), Vomiting ([facility]) Additional Instructions: You are being treated for bacterial vaginosis, an overgrowth of normal bacteria in the vagina. You are being sent home on an antibiotic called metronidazole. Take exactly as directed. Never drink alcohol while taking this antibiotic. Please return if you develop abdominal pain, fever greater than 101F, some vomiting, or any other symptoms that are concerning to you. Prescriptions: Metronidazole [Flagyl 500 mg Tablet] 500 mg PO BID 7 Days #14 tablet Ondansetron [Zofran Odt 4 mg Tablet] 1 - 2 tab PO Q4H PRN #15 tab.rapdis PRN Reason: For Nausea/Vomiting
[2018-12-17 22:38] LABS: ALANINE AMINOTRANSFERASE 37 U/L (9-52); ALBUMIN 3.6 g/dL (3.5-5.0); ALKALINE PHOSPHATASE 62 U/L (38-126); ANION GAP 9 (5-19); ASPARTATE AMINO TRANSFERASE 35 U/L (14-36); BILIRUBIN,DIRECT 0.2 mg/dL (0.0-0.4); BILIRUBIN,TOTAL 0.3 mg/dL (0.2-1.3); BLOOD UREA NITROGEN 12 mg/dL (7-20); CALCIUM 9.7 mg/dL (8.4-10.2); CARBON DIOXIDE 22 mmol/L (22-30); CHLORIDE 106 mmol/L (98-107); GLUCOSE 81 mg/dL (75-110); SODIUM 136.8 mmol/L (137-145); TOTAL PROTEIN 6.7 g/dL (6.3-8.2)
[2018-12-17 23:10] LABS: BACTERIA (WET MOUNT) 4+ BACTERIA SEEN; EPITHELIALS (WET MOUNT) 4+ EPITHELIALS SEEN; RBCS (WET MOUNT) NO RBCS SEEN; T.VAGINALIS (WET MOUNT) NO TRICHOMONAS SEEN; WBCS (WET MOUNT) 1+ WBCS SEEN; YEAST (WET MOUNT) NO YEAST SEEN
[2018-12-17] MEDS ORDERED: METRONIDAZOLE 500 MG TABLET PO ONE (23:32)
[2018-12-17 23:33] LABS: URINE AMPHETAMINES SCREEN NEGATIVE; URINE BARBITURATES SCREEN NEGATIVE; URINE BENZODIAZEPINES SCREEN NEGATIVE; URINE COCAINE SCREEN NEGATIVE; URINE MARIJUANA (THC) SCREEN NEGATIVE; URINE METHADONE SCREEN NEGATIVE; URINE PHENCYCLIDINE SCREEN NEGATIVE
[2018-12-17] MEDS ORDERED: ONDANSETRON ODT 4 MG TAB (6 TAB/ER DISP) PO PRN (23:41)
[2018-12-18 00:33] LABS: CHLAM PCR NOT DETECTED (NOT DETECT); GON PCR NOT DETECTED (NOT DETECT)
== END 2018-12-18 00:06 | disposition home or self-care (01) ==
LOC: ER 20:15
DX: O23.592 Infection of other part of genital tract in pregnancy, second trimester (principal); B96.89 Other specified bacterial agents as the cause of diseases classified elsewhere; R42 Dizziness and giddiness; R11.10 Vomiting, unspecified; R30.0 Dysuria; Z3A.23 23 weeks gestation of pregnancy
CPT/HCPCS: 99284; 96361; 96374; 36415; 87210; 85025; 80053; 81001; 80307; 87491; 87591; J2405; J7120

== ENCOUNTER 2019-02-15 00:55 | Outpatient (CLI) | payer MEDICAID ==
[2019-02-15 01:49] LABS: BACTERIA (WET MOUNT) 3+ BACTERIA SEEN; EPITHELIALS (WET MOUNT) 4+ EPITHELIALS SEEN; RBCS (WET MOUNT) NO RBCS SEEN; T.VAGINALIS (WET MOUNT) NO TRICHOMONAS SEEN; WBCS (WET MOUNT) FEW WBCS SEEN; YEAST (WET MOUNT) NO YEAST SEEN
[2019-02-15 01:57] LABS: APPEARANCE,URINE CLEAR; BILIRUBIN,URINE NEGATIVE (NEGATIVE); COLOR,URINE YELLOW; GLUCOSE, URINE NEGATIVE (NEGATIVE); KETONES,URINE NEGATIVE (NEGATIVE); LEUKOCYTE ESTERASE,URINE NEGATIVE (NEGATIVE); NITRITE,URINE NEGATIVE (NEGATIVE); PROTEIN,URINE NEGATIVE (NEGATIVE); URINE SPECIFIC GRAVITY 1.013; UROBILINOGEN,URINE NEGATIVE mg/dL (<2.0)
--- NOTE | 2019-02-15 02:15 | Non Stress Test Report ---
Non Stress Test Datetime Report Generated by CPN: 02/15/2019 02:15 DEMOGRAPHIC EGA NST: 32.1 INDICATION Indication for Study: Ordered by Provider VITAL SIGNS Temperature - NST: 98.1 Pulse - NST: 72 RESP - NST: 16 NBPSYS NST: 93 NBPDIA NST: 55 MONITORING Monitor Explained: Monitor Explained; Test Explained; Patient Verbalized Understanding Time on Monitor: 02/15/2019 01:21 Time off Monitor: 02/15/2019 02:08 NST Duration: 47 NST INTERVENTIONS NST Interventions: PO Hydration Physician Notified NST: Dr. Matthew BABY A: [id number] BABY A Movement : Present Contraction Frequency : none FHR Baseline : 130 Accelerations : 15X15 Decelerations : None Variability : Moderate 6-25bpm NST Review: Meets Criteria for Reactive NST NST Review and Verified By : Albert Hendrix RN NST Results: Reactive NST REPORT Report Trigger: Send Report
[2019-02-15 02:55] LABS: URINE AMPHETAMINES SCREEN NEGATIVE; URINE BARBITURATES SCREEN NEGATIVE; URINE BENZODIAZEPINES SCREEN NEGATIVE; URINE COCAINE SCREEN NEGATIVE; URINE MARIJUANA (THC) SCREEN NEGATIVE; URINE METHADONE SCREEN NEGATIVE; URINE PHENCYCLIDINE SCREEN NEGATIVE
[2019-02-15 03:14] LABS: CHLAM PCR NOT DETECTED (NOT DETECT)
== END 2019-02-15 02:15 | disposition home or self-care (01) ==
LOC: LC 00:55
PROVIDERS: ATTEND Obstetrics & Gynecology
DX: O26.893 Other specified pregnancy related conditions, third trimester (principal); R10.2 Pelvic and perineal pain; R10.9 Unspecified abdominal pain; Z3A.32 32 weeks gestation of pregnancy
CPT/HCPCS: 59025; 80307; 81001; 87210; 87491; 87591

== ENCOUNTER 2019-03-06 11:38 | Outpatient (CLI) | payer MEDICAID ==
[2019-03-06 12:25] LABS: APPEARANCE,URINE SLIGHTLY-CLOUDY; BILIRUBIN,URINE NEGATIVE (NEGATIVE); COLOR,URINE YELLOW; GLUCOSE, URINE NEGATIVE (NEGATIVE); KETONES,URINE NEGATIVE (NEGATIVE); LEUKOCYTE ESTERASE,URINE NEGATIVE (NEGATIVE); NITRITE,URINE NEGATIVE (NEGATIVE); PROTEIN,URINE NEGATIVE (NEGATIVE); URINE SPECIFIC GRAVITY 1.021
[2019-03-06 12:49] LABS: URINE AMPHETAMINES SCREEN NEGATIVE; URINE BARBITURATES SCREEN NEGATIVE; URINE BENZODIAZEPINES SCREEN NEGATIVE; URINE COCAINE SCREEN NEGATIVE; URINE MARIJUANA (THC) SCREEN NEGATIVE; URINE METHADONE SCREEN NEGATIVE; URINE PHENCYCLIDINE SCREEN NEGATIVE
[2019-03-06] MEDS ORDERED: HYDROXYZINE PAMOATE 50 MG CAPSULE ONE (12:55)
[2019-03-06] MEDS ORDERED: HYDROXYZINE PAMOATE 50 MG CAPSULE PO ONE (14:00)
== END 2019-03-06 14:32 | disposition home or self-care (01) ==
LOC: LC 11:38
PROVIDERS: ATTEND Obstetrics & Gynecology
PROC: 4A1HXCZ Monitoring of Products of Conception, Cardiac Rate, External Approach (ICD-10-PCS; principal; 2019-03-06)
DX: O47.03 False labor before 37 completed weeks of gestation, third trimester (principal); Z3A.34 34 weeks gestation of pregnancy
CPT/HCPCS: 81005; 80307; 59025; J3490

== ENCOUNTER 2019-03-14 13:05 | Outpatient (CLI) | payer MEDICAID ==
--- NOTE | 2019-03-14 13:08 | Non Stress Test Report ---
Non Stress Test Datetime Report Generated by CPN: 03/14/2019 13:08 DEMOGRAPHIC Test Number: 2 EGA NST: 34.6 INDICATION Indication for Study: Ordered by Provider MONITORING Monitor Explained: Monitor Explained; Test Explained; Patient Verbalized Understanding Time on Monitor: 03/06/2019 13:38 Time off Monitor: 03/06/2019 14:20 NST Duration: 42 NST INTERVENTIONS NST Interventions: PO Hydration; Meal Given Physician Notified NST: NRobertson, CNM BABY A: [id number] BABY A Movement : Present Contraction Frequency : Irregular FHR Baseline : 130 Accelerations : 15X15 Decelerations : None Variability : Moderate 6-25bpm NST Review: Meets Criteria for Reactive NST NST Review and Verified By : LUCIEN KATHLEEN Results: Reactive NST REPORT Report Trigger: Send Report
[2019-03-14 13:39] LABS: APPEARANCE,URINE SLIGHTLY-CLOUDY; BILIRUBIN,URINE NEGATIVE (NEGATIVE); COLOR,URINE YELLOW; GLUCOSE, URINE 50 mg/dL (NEGATIVE); KETONES,URINE NEGATIVE (NEGATIVE); LEUKOCYTE ESTERASE,URINE NEGATIVE (NEGATIVE); NITRITE,URINE NEGATIVE (NEGATIVE); PROTEIN,URINE NEGATIVE (NEGATIVE); URINE SPECIFIC GRAVITY 1.021; UROBILINOGEN,URINE NEGATIVE mg/dL (<2.0)
[2019-03-14 13:57] LABS: BACTERIA (WET MOUNT) 4+ BACTERIA SEEN; EPITHELIALS (WET MOUNT) 4+ EPITHELIALS SEEN; RBCS (WET MOUNT) NO RBCS SEEN; T.VAGINALIS (WET MOUNT) NO TRICHOMONAS SEEN; WBCS (WET MOUNT) 1+ WBCS SEEN; YEAST (WET MOUNT) NO YEAST SEEN
[2019-03-14 14:02] LABS: URINE AMPHETAMINES SCREEN NEGATIVE; URINE BARBITURATES SCREEN NEGATIVE; URINE BENZODIAZEPINES SCREEN NEGATIVE; URINE COCAINE SCREEN NEGATIVE; URINE MARIJUANA (THC) SCREEN NEGATIVE; URINE METHADONE SCREEN NEGATIVE; URINE PHENCYCLIDINE SCREEN NEGATIVE
--- NOTE | 2019-03-14 14:12 | Non Stress Test Report ---
Non Stress Test Datetime Report Generated by CPN: 03/14/2019 14:11 DEMOGRAPHIC EGA NST: 36.0 INDICATION Indication for Study: Ordered by Provider VITAL SIGNS Temperature - NST: 98.0 MONITORING Monitor Explained: Monitor Explained; Test Explained; Patient Verbalized Understanding Time on Monitor: 03/14/2019 13:36 Time off Monitor: 03/14/2019 14:10 NST Duration: 34 NST INTERVENTIONS NST Interventions: PO Hydration; Reposition Patient Physician Notified NST: N. Bajwa CNM on unit, reviewed fht BABY A Movement : Present Contraction Frequency : none FHR Baseline : 135 Accelerations : 15X15 Decelerations : None Variability : Moderate 6-25bpm NST Review: Meets Criteria for Reactive NST NST Review and Verified By : Brina Collazo RN NST Results: Reactive NST REPORT Report Trigger: Send Report
== END 2019-03-14 14:20 | disposition home or self-care (01) ==
LOC: LC 13:05
PROVIDERS: ATTEND Obstetrics & Gynecology
PROC: 4A1HXCZ Monitoring of Products of Conception, Cardiac Rate, External Approach (ICD-10-PCS; principal; 2019-03-14)
DX: Z34.83 Encounter for supervision of other normal pregnancy, third trimester (principal)
CPT/HCPCS: 59025; 80307; 81005; 84112; 87210

== ENCOUNTER 2019-03-18 22:13 | Outpatient (CLI) | payer MEDICAID ==
[2019-03-18 22:48] LABS: APPEARANCE,URINE SLIGHTLY-CLOUDY; BILIRUBIN,URINE NEGATIVE (NEGATIVE); COLOR,URINE YELLOW; GLUCOSE, URINE NEGATIVE (NEGATIVE); KETONES,URINE NEGATIVE (NEGATIVE); LEUKOCYTE ESTERASE,URINE NEGATIVE (NEGATIVE); NITRITE,URINE NEGATIVE (NEGATIVE); PROTEIN,URINE NEGATIVE (NEGATIVE); URINE SPECIFIC GRAVITY 1.018
[2019-03-18 23:11] LABS: URINE AMPHETAMINES SCREEN NEGATIVE; URINE BARBITURATES SCREEN NEGATIVE; URINE BENZODIAZEPINES SCREEN NEGATIVE; URINE COCAINE SCREEN NEGATIVE; URINE MARIJUANA (THC) SCREEN NEGATIVE; URINE METHADONE SCREEN NEGATIVE; URINE PHENCYCLIDINE SCREEN NEGATIVE
[2019-03-19] MEDS ORDERED: HYDROXYZINE PAMOATE 50 MG CAPSULE PO ONE
[2019-03-19] MEDS ORDERED: HYDROXYZINE PAMOATE 50 MG CAPSULE ONE (00:01)
== END 2019-03-19 00:11 | disposition home or self-care (01) ==
LOC: LC 22:13
PROVIDERS: ATTEND Obstetrics & Gynecology
PROC: 4A1HXCZ Monitoring of Products of Conception, Cardiac Rate, External Approach (ICD-10-PCS; principal; 2019-03-18)
DX: O47.03 False labor before 37 completed weeks of gestation, third trimester (principal); Z3A.36 36 weeks gestation of pregnancy
CPT/HCPCS: 81001; 80307; 59025; J3490

== ENCOUNTER 2019-03-25 14:28 | Outpatient (CLI) | payer MEDICAID ==
--- NOTE | 2019-03-25 14:48 | Non Stress Test Report ---
Non Stress Test Datetime Report Generated by CPN: 03/25/2019 14:48 DEMOGRAPHIC Test Number: 4 EGA NST: 36.4 INDICATION Indication for Study: Ordered by Provider Indication for Study (NST) Other: LC VITAL SIGNS Temperature - NST: 98.5 Pulse - NST: 78 RESP - NST: 18 NBPSYS NST: 112 NBPDIA NST: 55 MONITORING Monitor Explained: Monitor Explained; Test Explained; Patient Verbalized Understanding Time on Monitor: 03/18/2019 22:35 Time off Monitor: 03/18/2019 23:59 NST Duration: 84 NST INTERVENTIONS NST Interventions: PO Hydration Physician Notified NST: Campbell BABY A: [id number] BABY A Movement : Present Contraction Frequency : 2-7 FHR Baseline : 140 Accelerations : 15X15 Decelerations : None Variability : Moderate 6-25bpm NST Review: Meets Criteria for Reactive NST NST Review and Verified By : Avila Becerril RN NST Results: Reactive NST REPORT Report Trigger: Send Report
--- NOTE | 2019-03-25 15:08 | Non Stress Test Report ---
Non Stress Test Datetime Report Generated by CPN: 03/25/2019 15:08 DEMOGRAPHIC EGA NST: 37.4 INDICATION Indication for Study: Ordered by Provider MONITORING Monitor Explained: Monitor Explained; Test Explained; Patient Verbalized Understanding Time on Monitor: 03/25/2019 14:47 Time off Monitor: 03/25/2019 15:07 NST Duration: 20 NST INTERVENTIONS NST Interventions: None Physician Notified NST: Dr Benitez-Perez BABY A Movement : Present Contraction Frequency : irregular FHR Baseline : 135 Accelerations : 15X15 Decelerations : None Variability : Moderate 6-25bpm NST Review: Meets Criteria for Reactive NST NST Review and Verified By : Oma Krishnamurthy RN NST Results: Reactive NST REPORT Report Trigger: Send Report
[2019-03-25 15:52] LABS: APPEARANCE,URINE CLEAR; BILIRUBIN,URINE NEGATIVE (NEGATIVE); COLOR,URINE YELLOW; GLUCOSE, URINE NEGATIVE (NEGATIVE); KETONES,URINE NEGATIVE (NEGATIVE); LEUKOCYTE ESTERASE,URINE NEGATIVE (NEGATIVE); NITRITE,URINE NEGATIVE (NEGATIVE); PROTEIN,URINE NEGATIVE (NEGATIVE); URINE SPECIFIC GRAVITY 1.009; UROBILINOGEN,URINE NEGATIVE mg/dL (<2.0)
[2019-03-25 16:15] LABS: URINE AMPHETAMINES SCREEN NEGATIVE; URINE BARBITURATES SCREEN NEGATIVE; URINE BENZODIAZEPINES SCREEN NEGATIVE; URINE COCAINE SCREEN NEGATIVE; URINE MARIJUANA (THC) SCREEN NEGATIVE; URINE METHADONE SCREEN NEGATIVE; URINE PHENCYCLIDINE SCREEN NEGATIVE
== END 2019-03-25 15:18 | disposition home or self-care (01) ==
LOC: LC 14:28
PROVIDERS: ATTEND Obstetrics & Gynecology
PROC: 4A1HXCZ Monitoring of Products of Conception, Cardiac Rate, External Approach (ICD-10-PCS; principal; 2019-03-25)
DX: O47.1 False labor at or after 37 completed weeks of gestation (principal); Z3A.37 37 weeks gestation of pregnancy
CPT/HCPCS: 59025; 80307; 81005

== ENCOUNTER 2019-03-31 10:43 | Outpatient (CLI) | payer MEDICAID ==
[2019-03-31] MEDS ORDERED: PROMETHAZINE HCL INJ 25 MG/1 ML VIAL IV ONE (11:30)
[2019-03-31] MEDS ORDERED: RINGERS SOLUTION,LACTATED 1,000 ML IV PRN (11:30)
[2019-03-31 11:31] LABS: APPEARANCE,URINE CLOUDY; BILIRUBIN,URINE NEGATIVE (NEGATIVE); COLOR,URINE AMBER; GLUCOSE, URINE NEGATIVE (NEGATIVE); KETONES,URINE 80 mg/dL (NEGATIVE); LEUKOCYTE ESTERASE,URINE NEGATIVE (NEGATIVE); NITRITE,URINE NEGATIVE (NEGATIVE); PROTEIN,URINE 30 mg/dL (NEGATIVE); URINE SPECIFIC GRAVITY 1.019
[2019-03-31 11:44] LABS: URINE AMPHETAMINES SCREEN NEGATIVE; URINE BARBITURATES SCREEN NEGATIVE; URINE BENZODIAZEPINES SCREEN NEGATIVE; URINE COCAINE SCREEN NEGATIVE; URINE MARIJUANA (THC) SCREEN NEGATIVE; URINE METHADONE SCREEN NEGATIVE; URINE PHENCYCLIDINE SCREEN NEGATIVE
[2019-03-31] MEDS ORDERED: PROMETHAZINE HCL INJ 25 MG/1 ML VIAL ONE (11:51)
== END 2019-03-31 12:40 | disposition home or self-care (01) ==
LOC: LC 10:43
PROVIDERS: ATTEND Student in an Organized Health Care Education/Training Program
PROC: 4A1HXCZ Monitoring of Products of Conception, Cardiac Rate, External Approach (ICD-10-PCS; principal; 2019-03-31)
DX: Z34.83 Encounter for supervision of other normal pregnancy, third trimester (principal)
CPT/HCPCS: 59025; 81001; 80307; J2550

== ENCOUNTER 2019-04-12 16:01 | Inpatient (IN) | payer MEDICAID ==
[2019-04-12] MEDS ORDERED: OXYTOCIN 10 UNIT/ML VIAL ONE (17:02)
[2019-04-12] MEDS ORDERED: LIDOCAINE 1% INJ-PF (10 MG/ML) 30 ML SDV ONE (17:02)
[2019-04-12] MEDS ORDERED: OXYTOCIN/NORMAL SALINE 20 UNIT/1,000 ML RTUINJ ONE (17:02)
[2019-04-12] MEDS ORDERED: MISOPROSTOL 0.2 MG TABLET ONE (17:02)
[2019-04-12 17:21] LABS: APPEARANCE,URINE SLIGHTLY-CLOUDY; BILIRUBIN,URINE NEGATIVE (NEGATIVE); COLOR,URINE YELLOW; GLUCOSE, URINE NEGATIVE (NEGATIVE); KETONES,URINE NEGATIVE (NEGATIVE); LEUKOCYTE ESTERASE,URINE NEGATIVE (NEGATIVE); NITRITE,URINE NEGATIVE (NEGATIVE); PROTEIN,URINE NEGATIVE (NEGATIVE); UROBILINOGEN,URINE NEGATIVE mg/dL (<2.0)
[2019-04-12 17:36] LABS: URINE AMPHETAMINES SCREEN NEGATIVE; URINE BARBITURATES SCREEN NEGATIVE; URINE BENZODIAZEPINES SCREEN NEGATIVE; URINE COCAINE SCREEN NEGATIVE; URINE MARIJUANA (THC) SCREEN NEGATIVE; URINE METHADONE SCREEN NEGATIVE; URINE PHENCYCLIDINE SCREEN NEGATIVE
[2019-04-12 17:42] LABS: ABSOLUTE LYMPHOCYTES (AUTO) 2.4 10^3/uL (0.5-4.7); ABSOLUTE MONOCYTES (AUTO) 0.9 10^3/uL (0.1-1.4); ABSOLUTE NEUT (AUTO) 4.6 10^3/uL (1.7-8.2); BASOPHILS % (AUTO) 0.3 % (0-2); EOSINOPHILS % (AUTO) 0.5 % (0-6); LYMPHOCYTES % (AUTO) 30.4 % (13-45); MEAN CORPUSCULAR HEMOGLOBIN 30.3 pg (27.0-33.4); MEAN CORPUSCULAR HGB CONC 34.2 g/dL (32.0-36.0); MEAN CORPUSCULAR VOLUME 89 fl (80-97); MONOCYTES % (AUTO) 11.2 % (3-13); PLATELET COUNT 207 10^3/uL (150-450); RED BLOOD COUNT 4.29 10^6/uL (3.72-5.28); RED CELL DISTRIBUTION WIDTH 13.2 % (11.5-14.0); SEGMENTED NEUTROPHILS % (AUTO) 57.6 % (42-78); TOTAL CELLS COUNTED % (AUTO) 100 %
[2019-04-12] MEDS ORDERED: OXYTOCIN/NORMAL SALINE 20 UNIT/1,000 ML RTUINJ IV PRN (19:01)
[2019-04-12] MEDS ORDERED: (PENDING PHARMACY ID) (Valacyclovir Hcl [Valtrex] 1,000 MG) PO SCH (20:30)
[2019-04-12] MEDS ORDERED: ZOLPIDEM TARTRATE 5 MG TABLET PO ONE (21:25)
[2019-04-12] MEDS ORDERED: ZOLPIDEM TARTRATE 5 MG TABLET ONE (21:29)
[2019-04-12] MEDS ORDERED: VALACYCLOVIR HCL 500 MG TABLET ONE (22:51)
[2019-04-12] MEDS: VALACYCLOVIR HCL 500 MG TABLET PO SCH (23:00)
[2019-04-13] MEDS ORDERED: NALBUPHINE HCL INJ 10 MG/1 ML AMPULE IV ONE (00:29)
[2019-04-13] MEDS ORDERED: NALBUPHINE HCL INJ 10 MG/1 ML AMPULE ONE (00:31)
[2019-04-13] MEDS ORDERED: BUPIVACAINE HCL 0.25 % INJ/PF (2.5 MG/1 ML) 30 ML VIAL ONE (03:55)
[2019-04-13] MEDS ORDERED: FENTANYL/BUPIVACAINE/NS/PF 300 MCG/150 ML RTUINJ EPI ONE (03:55)
[2019-04-13] MEDS ORDERED: EPHEDRINE SULFATE INJ 50 MG/1 ML AMPULE ONE (03:55)
[2019-04-13] MEDS ORDERED: ACETAMINOPHEN WITH CODEINE #3 TABLET PO PRN (07:30)
[2019-04-13] MEDS ORDERED: MAGNESIUM HYDROXIDE SUSP 30 ML UDCUP PO PRN (07:30)
[2019-04-13] MEDS ORDERED: DIBUCAINE 1% OINTMENT 56 GM TP PRN (07:30)
[2019-04-13] MEDS ORDERED: PROMETHAZINE HCL 25 MG TABLET PO PRN (07:30)
[2019-04-13] MEDS ORDERED: MEASLES,MUMPS&RUBELLA VACC/PF 0.5 ML VIAL SUBCUT PRN (07:30)
[2019-04-13] MEDS ORDERED: BENZOCAINE/MENTHOL AEROSOL SPRAY 56 ML TOP PRN (07:30)
[2019-04-13] MEDS ORDERED: OXYTOCIN/NORMAL SALINE 20 UNIT/1,000 ML RTUINJ IV PRN (07:30)
[2019-04-13] MEDS ORDERED: NA PHOS,M-B/NA PHOS,DI-BA (ADULT) 133 ML ENEMA PR PRN (07:30)
[2019-04-13] MEDS ORDERED: ACETAMINOPHEN 325 MG TABLET PO PRN (07:30)
[2019-04-13] MEDS ORDERED: DIPHENHYDRAMINE HCL 25 MG CAPSULE PO PRN (07:30)
[2019-04-13] MEDS ORDERED: DIPH/PERTUSS(ACELL)/TETANUS VAC/PF 0.5 ML SYR (>=10YO) IM PRN (07:30)
[2019-04-13] MEDS ORDERED: PROMETHAZINE HCL 25 MG SUPP.RECT PR PRN (07:30)
[2019-04-13] MEDS ORDERED: ZOLPIDEM TARTRATE 5 MG TABLET PO PRN (07:30)
[2019-04-13] MEDS ORDERED: PROMETHAZINE HCL INJ 25 MG/1 ML VIAL IV PRN (07:30)
[2019-04-13] MEDS ORDERED: GLYCERIN/WITCH HAZEL LEAF 1 EACH MED..WIPE TP PRN (07:30)
[2019-04-13] MEDS ORDERED: PSEUDOEPHEDRINE HCL 30 MG TABLET PO PRN (07:30)
--- NOTE | 2019-04-13 07:53 | Warning Signs in Babies ---
VOD Warning Signs Datetime Report Generated by [facility]: 04/13/2019 07:53 VOD#608 -Warning Signs in Babies: Viewed with Parent(s)/Family (02/15/2019 01:01:Marycarmen Arredondo RN)
--- NOTE | 2019-04-13 09:25 | Delivery Summary ---
Del Sum A-C Datetime Report Generated by CPN: 04/13/2019 09:25 DELIVERY PERSONNEL DELIVERY PERSONNEL: [id number] Delivery Doctor:: Wendy Puentes MD Anesthesiologist:: Barry Abdalla MD Labor and Delivery Nurse:: duncan sykes Business Information Manager:: [facility]. Yousif [facility] Nursery Nurse:: jethro caritopete Johnson Tech/OPERATING THEATRE TECHNICIAN: Angelique Martinez, ST MATERNAL INFORMATION Delivery Anesthesia: Epidural Medications After Delivery: Pitocin Drip 20 Units/1000ml NSS; Other-Please Comment Meds After Delivery Comment: 1% lidocaine by provider for procedure Delivery QBL: 100 Delivery QBL Comment: 100ml Maternal Complications: None Provider Comments: VFI delivered in SILVANO presentation. Loose nuchal cord delivered through and body cord. Shoulders and body delivered without difficulty. Cord doubly clamped and cut and to maternal abdomen. Placenta delivered intact spontaneously. FF at U. 1st degree perineal laceration repaired for hemostasis. Mother and baby stable upon provider leaving the room. LABOR SUMMARY EDC: 04/11/2019 00:00 No. Babies in Womb: 1 LABOR INFORMATION Reason for Induction: Other Reason for Induction- Other: mental health issues Onset of Labor: 04/13/2019 04:00 Complete Dilatation: 04/13/2019 06:20 Oxytocin: Induction Group B Beta Strep: Negative Antibiotics # of Doses: 0 Steroids Given: None Reason Steroids Not Administered: Not Applicable MEMBRANES Membranes Rupture Method: Artificial Rupture of Membranes: 04/13/2019 05:04 Length of Rupture (hr): 1.80 Amniotic Fluid Color: Clear Amniotic Fluid Amount: Small Amniotic Fluid Odor: Normal STAGES OF LABOR Stage 1 hr: 2 Stage 1 min: 20 Stage 2 hr: 0 Stage 2 min: 32 Stage 3 hr: 0 Stage 3 min: 3 Total Time in Labor hr: 2 Total Time in Labor min: 55 VAGINAL DELIVERY Episiotomy: None Laceration #1: Perineal Laceration Extension #1: First Degree Laceration Repair: Yes Sponge Count Correct: Yes Sharps Count Correct: Yes CSECTION DELIVERY Primary Indication: N/A Secondary Indication: N/A BABY A INFORMATION Infant Delivery Date/Time: 04/13/2019 06:52 Method of Delivery: Vaginal Born in Route : No : N/A Forceps: N/A Vacuum Extraction: N/A Shoulder Dystocia : No PRESENTATION/POSITION BABY A Presentation: Cephalic Cephalic Presentation: Vertex Vertex Position: Left Occipital Anterior Breech Presentation: N/A PLACENTA INFORMATION BABY A Placenta Delivery Time : 04/13/2019 06:55 Placenta Method of Delivery: Spontaneous Placenta Status: Delivered SCORES BABY A Heart Rate 1 min: >100 bpm Resp Effort 1 min: Good Cry Reflex Irritability 1 min: Cough or Sneeze or Pulls Away Muscle Tone 1 min: Active Motion Color 1 min: Body [place], Extremities Blue Resuscitation Effort 1 min: Tactile Stimulation SCORE 1 MIN: 9 Heart Rate 5 min: >100 bpm Resp Effort 5 min: Good Cry Reflex Irritability 5 min: Cough or Sneeze or Pulls Away Muscle Tone 5 min: Active Motion Color 5 min: Body [place], Extremities Blue Resuscitation Effort 5 min: Tactile Stimulation SCORE 5 MIN: 9 Resuscitation Effort 10 min: N/A INFORMATION BABY A Gestational Age at Delivery: 40.2 Gestational Status: Full Term- 39- 40.6 Weeks Outcome : Liveborn Infant Condition : Stable Infant Sex: Female IDENTIFICATION BABY A Infant Verification Date/Time: 04/13/2019 07:08 ID Band Number: [id number] Mother's Name Verified: Yes RN Verifying Infant: JNiebuhr,RN Additional Verifying Personnel: TMartin,RN WEIGHT/LENGTH BABY A Birthweight (gm): 3545 Infant Weight (lb): 7 Weight (oz): 13 Infant Length (in): 19.00 Length (cm): 48.26 CORD INFORMATION BABY A No. Cord Vessels: 3 Nuchal Cord : Around Neck x1, Loose Nuchal Cord- Other: body of cord Cord Blood Taken: N/A Infant Suction: None ASSESSMENT BABY A Skin to Skin: Yes Skin to Skin Time (min): 45 SIGNATURES Signature: with User ID: [email or web address]
[2019-04-13] MEDS: FAMOTIDINE 20 MG TABLET PO SCH ×2 (10:35→21:05)
[2019-04-13] MEDS: FERROUS SULFATE 325 MG TABLET PO SCH ×2 (10:35→18:32)
[2019-04-13] MEDS: SENNOSIDES/DOCUSATE 8.6-50 MG 1 EACH TABLET PO SCH (10:35)
[2019-04-13] MEDS: PRENATAL VITAMIN W DHA CAPSULE PO SCH (10:35)
[2019-04-13] MEDS: DOCUSATE SODIUM 100 MG CAPSULE PO SCH ×2 (10:36→18:31)
[2019-04-13] MEDS: VALACYCLOVIR HCL 500 MG TABLET PO SCH (10:36)
[2019-04-13] MEDS: ACETAMINOPHEN WITH CODEINE #3 TABLET PO PRN (11:16)
[2019-04-13] MEDS: IBUPROFEN 800 MG TABLET PO SCH ×2 (14:31→21:05)
[2019-04-14] MEDS: IBUPROFEN 800 MG TABLET PO SCH ×3 (05:48→21:05)
[2019-04-14 08:14] LABS: HEMATOCRIT 36.2 % (36.0-47.0); HEMOGLOBIN 12.4 g/dL (12.0-15.5); MEAN CORPUSCULAR HEMOGLOBIN 30.4 pg (27.0-33.4); MEAN CORPUSCULAR HGB CONC 34.2 g/dL (32.0-36.0); MEAN CORPUSCULAR VOLUME 89 fl (80-97); PLATELET COUNT 185 10^3/uL (150-450); RED BLOOD COUNT 4.07 10^6/uL (3.72-5.28); RED CELL DISTRIBUTION WIDTH 13.2 % (11.5-14.0); WHITE BLOOD COUNT 9.5 10^3/uL (4.0-10.5)
[2019-04-14] MEDS: FERROUS SULFATE 325 MG TABLET PO SCH ×2 (09:06→17:29)
[2019-04-14] MEDS: FAMOTIDINE 20 MG TABLET PO SCH ×2 (09:06→21:05)
[2019-04-14] MEDS: VALACYCLOVIR HCL 500 MG TABLET PO SCH (09:06)
[2019-04-14] MEDS: ACETAMINOPHEN WITH CODEINE #3 TABLET PO PRN (09:07)
[2019-04-14] MEDS: DOCUSATE SODIUM 100 MG CAPSULE PO SCH ×2 (09:07→17:29)
[2019-04-14] MEDS: SENNOSIDES/DOCUSATE 8.6-50 MG 1 EACH TABLET PO SCH (09:07)
[2019-04-14] MEDS: PRENATAL VITAMIN W DHA CAPSULE PO SCH (09:07)
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
[2019-04-15] MEDS: IBUPROFEN 800 MG TABLET PO SCH (06:06)
[2019-04-15] MEDS: ACETAMINOPHEN WITH CODEINE #3 TABLET PO PRN (06:10)
[2019-04-15] MEDS: FAMOTIDINE 20 MG TABLET PO SCH (10:08)
[2019-04-15] MEDS: FERROUS SULFATE 325 MG TABLET PO SCH (10:08)
[2019-04-15] MEDS: VALACYCLOVIR HCL 500 MG TABLET PO SCH (10:08)
[2019-04-15] MEDS: SENNOSIDES/DOCUSATE 8.6-50 MG 1 EACH TABLET PO SCH (10:08)
[2019-04-15] MEDS: PRENATAL VITAMIN W DHA CAPSULE PO SCH (10:08)
[2019-04-15] MEDS: DOCUSATE SODIUM 100 MG CAPSULE PO SCH (10:08)
--- NOTE | 2019-04-15 10:42 | PDOC DISCHARGE SUMMARY ---
Impression - Admit/DC Date/PCP Admission Date/Primary Care Provider: 04/12/19 16:59 CASSANDRA CLIFFORD MD Discharge Date: 04/15/19 - PP Day #2, doing well, no complaints, , states has somewhere to go home and live once discharged. FOB not involved. Hx mental illness and drug use, [facility] facility planner in to see patient yesterday. Pt plans IUD post - Discharge Diagnosis (1) Bipolar 1 disorder Is this a current diagnosis for this admission?: Yes (2) Hx of schizophrenia Is this a current diagnosis for this admission?: Yes (3) Genital herpes affecting Is this a current diagnosis for this admission?: No (4) Obstetrical laceration, first degree Is this a current diagnosis for this admission?: Yes (5) Vaginal delivery Is this a current diagnosis for this admission?: Yes - Additional Information Resuscitation Status: Full Code Discharge Diet: As Tolerated Discharge Activity: Activity As Tolerated, No Lifting Over 10 Pounds, Pelvic Rest Referrals: [facility] [Provider Group] Prescriptions: Ibuprofen [Motrin 800 mg Tablet] 800 mg PO Q8 #60 tablet Home Medications: Vitamin [-U Multiple Vitamin Capsule] 1 cap PO DAILY 02/15/19 Ibuprofen [Motrin 800 mg Tablet] 800 mg PO Q8 #60 tablet 04/15/19 HPI Reason(s) for Admission: Onset of Labor Procedures: Ultrasound Intrapartum Procedure(s): Spontaneous Vaginal Delivery Complication(s): Laceration-Vaginal Laceration-Degree: 1st Results Laboratory Results: WBC 9.5 10^3/uL (4.0-10.5) 04/14/19 08:02 RBC 4.07 10^6/uL (3.72-5.28) 04/14/19 08:02 Hgb 12.4 g/dL (12.0-15.5) 04/14/19 08:02 Hct 36.2 % (36.0-47.0) 04/14/19 08:02 MCV 89 fl (80-97) 04/14/19 08:02 MCH 30.4 pg (27.0-33.4) 04/14/19 08:02 MCHC 34.2 g/dL (32.0-36.0) 04/14/19 08:02 RDW 13.2 % (11.5-14.0) 04/14/19 08:02 Plt Count 185 10^3/uL (150-450) 04/14/19 08:02 Lymph % (Auto) 30.4 % (13-45) 04/12/19 17:32 Kay % (Auto) 11.2 % (3-13) 04/12/19 17:32 Eos % (Auto) 0.5 % (0-6) 04/12/19 17:32 Baso % (Auto) 0.3 % (0-2) 04/12/19 17:32 Absolute Neuts (auto) 4.6 10^3/uL (1.7-8.2) 04/12/19 17: Absolute Lymphs (auto) 2.4 10^3/uL (0.5-4.7) 04/12/19 17:32 Absolute Monos (auto) 0.9 10^3/uL (0.1-1.4) 04/12/19 17:32 Absolute Eos (auto) 0.0 10^3/uL (0.0-0.6) 04/12/19 17:32 Absolute Basos (auto) 0.0 10^3/uL (0.0-0.2) 04/12/19 17:32 Seg Neutrophils % 57.6 % (42-78) 04/12/19 17:32 Urine Color YELLOW 04/12/19 16:10 Urine Appearance SLIGHTLY-CLOUDY 04/12/19 16:10 Urine pH 7.0 (5.0-9.0) 04/12/19 16:10 Ur Specific Morris 1.010 04/12/19 16:10 Urine Protein NEGATIVE mg/dL (NEGATIVE) 04/12/19 16:10 Urine Glucose (UA) NEGATIVE mg/dL (NEGATIVE) 04/12/19 16:10 Urine Ketones NEGATIVE mg/dL (NEGATIVE) 04/12/19 16:10 Urine Blood NEGATIVE (NEGATIVE) 04/12/19 16:10 Urine Nitrite NEGATIVE (NEGATIVE) 04/12/19 16:10 Urine Bilirubin NEGATIVE (NEGATIVE) 04/12/19 16:10 Urine Urobilinogen NEGATIVE mg/dL (<2.0) 04/12/19 16:10 Ur Leukocyte Esterase NEGATIVE (NEGATIVE) 04/12/19 16:10 Urine Ascorbic Acid NEGATIVE (NEGATIVE) 04/12/19 16:10 Urine Opiates Screen NEGATIVE 04/12/19 16:10 Urine Methadone Screen NEGATIVE 04/12/19 16:10 Ur Barbiturates Screen NEGATIVE 04/12/19 16:10 Ur Phencyclidine Scrn NEGATIVE 04/12/19 16:10 Ur Amphetamines Screen NEGATIVE 04/12/19 16:10 U Benzodiazepines Scrn NEGATIVE 04/12/19 16:10 Urine Cocaine Screen NEGATIVE 04/12/19 16:10 U Marijuana (THC) Screen NEGATIVE 04/12/19 16:10 RPR NONREACTIVE (NONREACTIVE) 04/12/19 17:32 Blood Type A POSITIVE 04/12/19 17:32 Antibody Screen NEGATIVE 04/12/19 17:32 Plan Health Concerns: Pt to f/u at [facility] for counseling Plan of Treatment: d/c to home, f/u with [facility] in 4 weeks
[2019-04-15 12:17] VITALS: BP 117/68
[2019-04-16 08:20] LABS: HSV-I IGG AB 35.3 index (0.00-0.90)
== END 2019-04-15 12:57 | disposition home or self-care (01) | DRG 806 ==
LOC: LC 16:01 → LR 16:59 → EEVIPCON 16:59 → 2S 04-13 09:35
PROVIDERS: ADMIT Student in an Organized Health Care Education/Training Program; ATTEND Student in an Organized Health Care Education/Training Program
PROC: 10E0XZZ Delivery of Products of Conception, External Approach (ICD-10-PCS; principal; 2019-04-13)
PROC: 0HQ9XZZ Repair Perineum Skin, External Approach (ICD-10-PCS; 2019-04-13)
DX: O99.344 Other mental disorders complicating childbirth (principal); O98.52 Other viral diseases complicating childbirth; Z37.0 Single live birth; O69.81X0 Labor and delivery complicated by cord around neck, without compression, not applicable or unspecified; O70.0 First degree perineal laceration during delivery; B00.9 Herpesviral infection, unspecified; F31.9 Bipolar disorder, unspecified; Z3A.40 40 weeks gestation of pregnancy
CPT/HCPCS: 36415; 80307; 81005; 85025; 85027; 86592; 86695; 86850; 86900; 86901; J2300; J2590; J3010; J3490

== ENCOUNTER 2019-05-25 11:48 | Emergency (ER) | payer MEDICAID ==
--- NOTE | 2019-05-25 12:07 | ER Document Report ---
ED Medical Screen (RME) - General Chief Complaint: Vaginal Pain Stated Complaint: VAGINAL PAIN Time Seen by Provider: 05/25/19 12:00 Primary Care Provider: CASSANDRA CLIFFORD MD [Primary Care Provider] - Follow up as needed Notes: 24-year-old female 6 weeks presents to the emergency department with heavy abnormal vaginal discharge. Patient states that it is "like snot" with no smell. Denies any vaginal bleeding. Complains of bilateral adnexal and pelvic pain that sends a "shooting pain into my vagina" with some mild left back pain. No fevers or chills, no nausea or vomiting, no acute weakness. Exam: Well-appearing no acute distress, lungs are clear to auscultation all holloway, regular cardiac rate and rhythm S1-S2 heard, abdominal exam deferred in triage I have greeted and performed a rapid initial assessment of this patient. A comprehensive ED assessment and evaluation of the patient, analysis of test results and completion of medical decision making process will be conducted by an additional ED providers. TRAVEL OUTSIDE OF THE [place] IN LAST 30 DAYS: No - Related Data Allergies/Adverse Reactions: No Known Allergies Allergy (Verified 04/12/19 16:28) Past Medical History Renal/ Medical History: Reports: Hx Ovarian Cysts, Hx Pelvic Inflammatory Disease - States she's had GC chlamydia and genital herpes. Denies: Hx Peritoneal Dialysis Psychiatric Medical History: Reports: Hx Attention Deficit Hyperactivity Disorder, Hx Bipolar Disorder, Hx Depression, Hx Schizophrenia Past Surgical History: Reports: Hx Gynecologic Surgery - Exploratory surgery for endometriosis, stretching the cervic due to stenosi - Immunizations Hx Diphtheria, Pertussis, Tetanus Vaccination: No Physical Exam - Vital signs Vitals: Temp Pulse Resp BP Pulse Ox 98 F 83 18 111/67 99 05/25/19 11:54 05/25/19 11:54 05/25/19 11:54 05/25/19 11:54 05/25/19 11:54 Course - Vital Signs Vital signs: Temp Pulse Resp BP Pulse Ox 98 F 83 18 111/67 99 05/25/19 11:54 05/25/19 11:54 05/25/19 11:54 05/25/19 11:54 05/25/19 11:54 Doctor's Discharge - Discharge Referrals: CASSANDRA CLIFFORD MD [Primary Care Provider] - Follow up as needed
[2019-05-25 12:42] LABS: ABSOLUTE EOSINOPHILS # (AUTO) 0.1 10^3/uL (0.0-0.6); ABSOLUTE LYMPHOCYTES (AUTO) 2.1 10^3/uL (0.5-4.7); ABSOLUTE MONOCYTES (AUTO) 0.5 10^3/uL (0.1-1.4); ABSOLUTE NEUT (AUTO) 1.7 10^3/uL (1.7-8.2); BASOPHILS % (AUTO) 0.3 % (0-2); EOSINOPHILS % (AUTO) 1.4 % (0-6); HEMATOCRIT 42.5 % (36.0-47.0); HEMOGLOBIN 14.4 g/dL (12.0-15.5); LYMPHOCYTES % (AUTO) 47.8 % (13-45); MEAN CORPUSCULAR HEMOGLOBIN 30.1 pg (27.0-33.4); MEAN CORPUSCULAR VOLUME 89 fl (80-97); MONOCYTES % (AUTO) 12.2 % (3-13); PLATELET COUNT 230 10^3/uL (150-450); RED CELL DISTRIBUTION WIDTH 12.2 % (11.5-14.0); SEGMENTED NEUTROPHILS % (AUTO) 38.3 % (42-78); TOTAL CELLS COUNTED % (AUTO) 100 %; WHITE BLOOD COUNT 4.4 10^3/uL (4.0-10.5)
[2019-05-25 12:56] LABS: APPEARANCE,URINE SLIGHTLY-CLOUDY; BILIRUBIN,URINE NEGATIVE (NEGATIVE); COLOR,URINE YELLOW; GLUCOSE, URINE NEGATIVE (NEGATIVE); KETONES,URINE NEGATIVE (NEGATIVE); LEUKOCYTE ESTERASE,URINE NEGATIVE (NEGATIVE); NITRITE,URINE NEGATIVE (NEGATIVE); PROTEIN,URINE NEGATIVE (NEGATIVE); URINE SPECIFIC GRAVITY 1.024
[2019-05-25 13:06] LABS: ALBUMIN 4.3 g/dL (3.5-5.0); ALKALINE PHOSPHATASE 69 U/L (38-126); ANION GAP 8 (5-19); ASPARTATE AMINO TRANSFERASE 21 U/L (14-36); BILIRUBIN,TOTAL 0.6 mg/dL (0.2-1.3); BLOOD UREA NITROGEN 15 mg/dL (7-20); CALCIUM 9.9 mg/dL (8.4-10.2); CARBON DIOXIDE 26 mmol/L (22-30); CHLORIDE 105 mmol/L (98-107); GLUCOSE 76 mg/dL (75-110); POTASSIUM 4.3 mmol/L (3.6-5.0); TOTAL PROTEIN 7.4 g/dL (6.3-8.2)
--- NOTE | 2019-05-25 14:08 | ER Document Report ---
ED General - General Chief Complaint: Vaginal Discharge Stated Complaint: VAGINAL PAIN Time Seen by Provider: 05/25/19 12:00 Primary Care Provider: CASSANDRA CLIFFORD MD [Primary Care Provider] - Follow up as needed Mode of Arrival: Ambulatory Information source: Patient TRAVEL OUTSIDE OF THE [place] IN LAST 30 DAYS: No - HPI Notes: 24-year-old , 6 weeks presents to the emergency room for complaints of vaginal discharge, pelvic pain. patient states she has been having this pain since vaginal delivery on April 13, 2019, reports some whitish discharge that has saturated pad. States pain is 4 out of 10 and she is experiencing these pains and it progressively come worse. Patient does not follow with POWER SHOVEL OPERATOR HELPER because she did "leave town for a few weeks after I delivered the baby" but she does plan on going back to seeing [facility]OWER [facility] OPERATOR HELPER. Denies fevers, chills, chest pain,palpitations, shortness of breath, dyspnea, nausea, vomiting, diarrhea, hematuria, headaches,weakness, bowel or bladder dysfunction, saddle anesthesia, numbness or tingling in bilateral upper or lower extremities equally, muscle paralysis, weakness in bilateral upper or lower extremities equally or rash. - Related Data Allergies/Adverse Reactions: No Known Allergies Allergy (Verified 04/12/19 16:28) Past Medical History - General Information source: Patient Last Menstrual Period: 06/25/2018 - Social History Smoking Status: Never Smoker Frequency of alcohol use: None Drug Abuse: None Family History: Arthritis, CAD, CVA, DM, Hyperlipidemia, Hypertension, Malignancy, Thyroid Disfunction Patient has suicidal ideation: No Patient has homicidal ideation: No Renal/ Medical History: Reports: Hx Ovarian Cysts, Hx Pelvic Inflammatory Disease - States she's had GC chlamydia and genital herpes. Denies: Hx Claire toneal Dialysis Psychiatric Medical History: Reports: Hx Attention Deficit Hyperactivity Disorder, Hx Bipolar Disorder, Hx Depression, Hx Schizophrenia Past Surgical History: Reports: Hx Gynecologic Surgery - Exploratory surgery for endometriosis, stretching the cervic due to stenosi - Immunizations Hx Diphtheria, Pertussis, Tetanus Vaccination: No Review of Systems - Review of Systems Constitutional: No symptoms reported EENT: No symptoms reported Cardiovascular: No symptoms reported Respiratory: No symptoms reported Gastrointestinal: No symptoms reported Genitourinary: No symptoms reported Female Genitourinary: See HPI Musculoskeletal: No symptoms reported Skin: No symptoms reported Hematologic/Lymphatic: No symptoms reported Neurological/Psychological: No symptoms reported Physical Exam - Vital signs Vitals: Temp Pulse Resp BP Pulse Ox 98 F 83 18 111/67 99 05/25/19 11:54 05/25/19 11:54 05/25/19 11:54 05/25/19 11:54 05/25/19 11:54 - Notes Notes: PHYSICAL EXAMINATION: reviewed vital signs by RN GENERAL: Well-appearing, well-nourished and in no acute distress. HEAD: Atraumatic, normocephalic. EYES: Pupils equal round and reactive to light, extraocular movements intact, conjunctiva are normal. ENT: Nares patent, oropharynx clear without exudates. Moist mucous membranes. NECK: Normal range of motion, supple without lymphadenopathy LUNGS: Breath sounds clear to auscultation bilaterally and equal. No wheezes rales or rhonchi. HEART: Regular rate and rhythm without murmurs ABDOMEN: Soft, nontender, nondistended abdomen. No guarding, no rebound. No masses appreciated. Female : External genitalia without erythema, exudate or discharge. Vaginal vault is without discharge. Cervix is of normal color without lesion. Uterus is noted to be of normal size and nontender. No cervical motion tenderness is seen. No masses are palpated. No blood in the vaginal vault without clots, os closed, no adnexal tenderness or mass Musculoskeletal: Normal range of motion, no pitting or edema. No cyanosis. NEUROLOGICAL: Cranial nerves grossly intact. Normal speech, normal gait. Normal sensory, motor exams PSYCH: Normal mood, normal affect. SKIN: Warm, Dry, normal turgor, no rashes or lesions noted. While Course - Re-evaluation Re-evalutation: 05/25/19 18:33 Afebrile vital stable no distress. Nurse's notes reviewed. Wet mount does show bacterial vaginosis negative for trichomonas. Patient states that she did have previous STDs prior to giving to her child. Patient says she is been abstaining from any sexual activity since the of her daughter. Transvaginal ultrasound negative for any acute findings per radiology, serum hCG negative, urinalysis unremarkable. Will treat patient for bacterial vaginosis with Flagyl 500 mg twice daily for 7 days, discussed with patient that she does need to use barrier condoms or barrier methods when sexually active when she gets a referral from her [facility]OWER [facility] OPERATOR HELPER to prevent any STDs or . Encourage patient to follow-up with [facility] OPERATOR HEL[facility] for care. After performing a Medical Screening Examination, I estimate there is LOW risk for ACUTE APPENDICITIS, BOWEL OBSTRUCTION, ACUTE CHOLECYSTITIS, PERFORATED DIVERTICULITIS, INCARCERATED HERNIA, PANCREATITIS, PELVIC INFLAMMATORY DISEASE, PERFORATED ULCER, ECTOPIC , or TUBO-OVARIAN ABSCESS, thus I consider the discharge disposition reasonable. Also, there is no evidence or peritonitis, sepsis, or toxicity. I have reevaluated this patient multiple times and no significant life threatening changes are noted. The patient and I have discussed the diagnosis and risks, and we agree with discharging home with close follow-up with the understanding that symptoms and presentations can change. We also discussed returning to the Emergency Department immediately if new or worsening symptoms occur. We have discussed the symptoms which are most concerning (e.g., bloody stool, fever, changing or worsening pain, vomiting) that necessitate immediate return. - Vital Signs Vital signs: Temp Pulse Resp BP Pulse Ox 98 F 83 18 111/67 99 05/25/19 11:54 05/25/19 11:54 05/25/19 11:54 05/25/19 11:54 05/25/19 11:54 - Laboratory Result Diagrams: 05/25/19 12:20 05/25/19 12:22 Laboratory results interpreted by me: 05/25/19 05/25/19 12:20 12:20 Lymph % (Auto) 47.8 H Seg Neutrophils % 38.3 L Urine Urobilinogen 2.0 H Discharge - Discharge Clinical Impression: Bacterial vaginosis Condition: Stable Disposition: HOME, SELF-CARE Instructions: Vaginosis, Bacterial ([facility]) Additional Instructions: Vaginosis, Bacterial Your exam shows you have bacterial vaginosis. This condition is due to an overgrowth of bacteria in the vagina. Symptoms may include vaginal itching or pain, a smelly discharge, and sometimes burning with urination. Normally this is not transmitted by sexual contact. Vaginosis can be treated with oral or topical antibiotics. Metronidazole (Flagyl) pills are usually effective. Topical vaginal creams include Cleocin and Metro-Gel. You should avoid sexual contact until your symptoms are all better. Call the doctor if you develop pelvic pain, fever, or problems with urination, or if you don't improve as expected. Return immediately for any new or worsening symptoms. Follow up with primary care provider, call tomorrow to make followup appointment. Prescriptions: Metronidazole [Flagyl] 500 mg PO BID #14 tablet Referrals: CASSANDRA CLIFFORD MD [Primary Care Provider] - Follow up as needed HAILEY CALLES MD [COMMUNITY BASED STAFF] - Follow up as needed
[2019-05-25 14:41] LABS: BACTERIA (WET MOUNT) 4+ BACTERIA SEEN; EPITHELIALS (WET MOUNT) 3+ EPITHELIALS SEEN; RBCS (WET MOUNT) RARE RBCS SEEN; T.VAGINALIS (WET MOUNT) NO TRICHOMONAS SEEN; WBCS (WET MOUNT) 2+ WBCS SEEN; YEAST (WET MOUNT) NO YEAST SEEN
--- NOTE | 2019-05-25 15:14 | RADIOLOGY REPORT (SQ) ---
EXAM DESCRIPTION: U/S NON OB PEL TV W/DOPPLER COMPLETED DATE/TIME: 05/25/2019 3:02 pm REASON FOR STUDY: abnormal heavy discharge COMPARISON: 09/11/2016 TECHNIQUE: Dynamic and static grayscale images acquired of the pelvis via transvaginal approach and recorded on PACS. Additional selected color Doppler and spectral images recorded. LIMITATIONS: None. FINDINGS: UTERUS: Contour normal. No mass. ENDOMETRIAL STRIPE: No focal or generalized thickening. No masses. CERVIX: There is a small nabothian cyst. RIGHT OVARY AND DOPPLER: There is a 2.2 x 1.6 x 2.0 cm cyst. Normal arterial and venous flow. LEFT OVARY AND DOPPLER: Not visualized. FREE FLUID: None noted. OTHER: There is a small amount of free fluid. MEASUREMENTS: UTERUS: 9.8 x 4.3 x 6.1 cm. ENDOMETRIAL STRIPE: 14 mm. RIGHT OVARY: 3.2 x 2.7 x 3.0 cm. LEFT OVARY: Not visualized. IMPRESSION: Small right ovarian cyst. No other significant findings. The left ovary could not be i dentified. TECHNICAL DOCUMENTATION: JOB ID: [id number] UB.- All Rights Reserved Rev-11/26 Reading location - IP/workstation name: [email or web address]
[2019-05-25 16:02] VITALS: BP 106/72
[2019-05-25 16:09] LABS: CHLAM PCR NOT DETECTED (NOT DETECT)
== END 2019-05-25 16:03 | disposition home or self-care (01) ==
LOC: ER 11:48
DX: O86.13 Vaginitis following delivery (principal); B96.89 Other specified bacterial agents as the cause of diseases classified elsewhere; O90.89 Other complications of the puerperium, not elsewhere classified; R10.2 Pelvic and perineal pain
CPT/HCPCS: 36415; 76830; 80053; 81001; 81025; 85025; 87210; 87491; 87591; 93976

== ENCOUNTER 2019-11-16 12:09 | Emergency (ER) | payer SELFPAY ==
[2019-11-16 12:18] VITALS: BP 116/66
--- NOTE | 2019-11-16 12:22 | ER Document Report ---
ED GI/ - General Chief Complaint: Abdominal Cramping Stated Complaint: ABDOMINAL PAIN Time Seen by Provider: 11/16/19 12:14 Primary Care Provider: CASSANDRA CLIFFORD MD [ACTIVE STAFF] - Follow up as needed Notes: CHIEF COMPLAINT: Pelvic cramping and vaginal discharge HPI: 24-year-old female presenting to the emergency department for evaluation of pelvic cramping over the last 3 to 4 days with some vaginal discharge. Patient used an [id number] vaginitis test which she believes might be positive. She has traveled to and from [place] recently stating she is trying to get custody of her daughter. Patient was there 3 days ago. States that approximately a month ago she was having similar pelvic discomfort and cramping and was told she had an ovarian cyst on the left ovary. She did not follow-up with [facility] yet. ROS: See HPI - all other systems were reviewed and are otherwise negative Constitutional: no fever or recent illness Eyes: no drainage, no blurred vision ENT: no runny nose, no sore throat Cardiovascular: no chest pain Resp: no SOB, no cough GI: no vomiting, no diarrhea, positive pelvic pain : no dysuria, + vaginal discharge Integumentary: no rash Allergy: no hives Musculoskeletal: no extremity pain or swelling Neurological: no numbness/tingling, no weakness MEDICATIONS: I agree with the patient medications as charted by the RN. ALLERGIES: I agree with the allergies as charted by the RN. PAST MEDICAL HISTORY/PAST SURGICAL HISTORY: Reviewed and agree as charted by RN. SOCIAL HISTORY: Reviewed and agree as charted by RN. FAMILY HISTORY: No significant familial comorbid conditions directly related to patient complaint EXAM: Reviewed vital signs as charted by RN. CONSTITUTIONAL: Alert and oriented and responds appropriately to questions. Well-appearing; well-nourished, no acute distress HEAD: Normocephalic; atraumatic EYES: PERRL; Conjunctivae clear, sclerae non-icteric ENT: normal nose; no rhinorrhea; moist mucous membranes; pharynx without lesions noted NECK: Supple without meningismus; non-tender; no cervical lymphadenopathy, no masses CARD: RRR; no murmurs, no clicks, no rubs, no gallops; symmetric distal pulses RESP: Normal chest excursion without splinting or tachypnea; breath sounds clear and equal bilaterally; no wheezes, no rhonchi, no rales, ABD/GI: Normal bowel sounds; non-distended; soft, non-tender, no rebound, no guarding; no palpable organomegaly or masses : Female nurse cement tester assistant present. External genitalia normal. No skin lesions noted. Pelvic Exam: No active bleeding. No purulent discharge. Cervix appears normal. No CMT. No lesions or masses. Uterus normal size and non tender. Right/Left adnexa normal size and non tender. BACK: The back appears normal and is non-tender to palpation, there is no CVA tenderness EXT: Normal ROM in all joints; non-tender to palpation; no cyanosis, no effusions, no edema SKIN: Normal color for age and race; warm; dry; good turgor; no acute lesions noted NEURO: Moves all extremities equally; Motor and sensory function intact PSYCH: The patient's mood and manner are appropriate. Grooming and personal hygiene are appropriate. MDM: 24-year-old female presenting with pelvic cramping, slight vaginal discharge over the last 3 to 4 days. Had similar symptoms a month ago in [facility] and states she was diagnosed with an ovarian cyst on the left ovary. Has not seen [facility] at this time. Patient does not have records with her currently at time of dictation, will obtain pelvic ultrasound to evaluate for torsion or cyst TRAVEL OUTSIDE OF THE [place] IN LAST 30 DAYS: No - Related Data Allergies/Adverse Reactions: No Known Allergies Allergy (Verified 11/16/19 12:39) Past Medical History - Social History Smoking Status: Never Smoker Family History: Arthritis, CAD, CVA, DM, Hyperlipidemia, Hypertension, Malignancy, Thyroid Disfunction Patient has homicidal ideation: No Renal/ Medical History: Reports: Hx Ovarian Cysts, Hx Pelvic Inflammatory Disease - States she's had GC chlamydia and genital herpes. Denies: Hx Peritoneal Dialysis Psychiatric Medical History: Reports: Hx Attention Deficit Hyperactivity Disorder, Hx Bipolar Disorder, Hx Depression, Hx Schizophrenia Past Surgical History: Reports: Hx Gynecologic Surgery - Exploratory surgery for endometriosis, stretching the cervic due to stenosi - Immunizations Hx Diphtheria, Pertussis, Tetanus Vaccination: No Physical Exam - Vital signs Vitals: Temp 98.2 F 11/16/19 12:09 Course - Re-evaluation Re-evalutation: 11/16/19 14:53 Patient states that she is not and does not want to have the ultrasound performed. She is aware that we cannot rule out torsion, TOA, other pelvic abnormalities without imaging studies. Patient is incidentally positive for chl amydia. She is negative for gonorrhea. We will treat with Zithromax in the emergency department this is likely where her pelvic pain is coming from. She will be given referral to [facility] for follow-up. Patient will be advised to notify sexual partners of need for treatment. Patient will be advised to abstain from sex for 10 days. - Vital Signs Vital signs: Temp Pulse Resp BP Pulse Ox 98.2 F 74 20 116/66 97 11/16/19 12:13 11/16/19 12:13 11/16/19 12:13 11/16/19 12:13 11/16/19 12:13 - Laboratory Laboratory results interpreted by me: 11/16/19 12:35 Chlamydia DNA (PCR) DETECTED H Discharge - Discharge Clinical Impression: Acute pelvic pain, female, Chlamydia infection Condition: Stable Disposition: HOME, SELF-CARE Additional Instructions: You declined ultrasound imaging today. Please be aware that we cannot rule out other pelvic abnormalities without imaging studies. If you have worsening pain please return for reevaluation otherwise follow-up with your [facility]. You were positive for chlamydia today which is a sexually transmitted disease. You have been treated with antibiotics for this. Abstain from sex for 10 days. Notify any sexual partners of need for treatment Referrals: CASSANDRA CLIFFORD MD [ACTIVE STAFF] - Follow up as needed
[2019-11-16 12:52] LABS: APPEARANCE,URINE CLEAR; BILIRUBIN,URINE NEGATIVE (NEGATIVE); COLOR,URINE YELLOW; GLUCOSE, URINE NEGATIVE (NEGATIVE); KETONES,URINE NEGATIVE (NEGATIVE); LEUKOCYTE ESTERASE,URINE NEGATIVE (NEGATIVE); NITRITE,URINE NEGATIVE (NEGATIVE); PROTEIN,URINE NEGATIVE (NEGATIVE); RBCS (WET MOUNT) RARE RBCS SEEN; T.VAGINALIS (WET MOUNT) NO TRICHOMONAS SEEN; URINE SPECIFIC GRAVITY 1.012; UROBILINOGEN,URINE NEGATIVE mg/dL (<2.0); WBCS (WET MOUNT) 1+ WBCS SEEN; YEAST (WET MOUNT) NO YEAST SEEN
[2019-11-16 14:23] LABS: CHLAM PCR DETECTED (NOT DETECT)
[2019-11-16] MEDS ORDERED: AZITHROMYCIN 250 MG TABLET PO ONE (14:53)
== END 2019-11-16 15:05 | disposition home or self-care (01) ==
LOC: ER 12:09
DX: A74.9 Chlamydial infection, unspecified (principal); R10.2 Pelvic and perineal pain; Z87.42 Personal history of other diseases of the female genital tract
CPT/HCPCS: 81001; 81025; 87210; 87491; 87591; 99284